=== PATIENT | male | born 1940 | race Caucasian/White ===

== ENCOUNTER 2022-12-02 13:52 | Inpatient (IN) | payer MEDICARE, OTHER, SELFPAY ==
[2022-12-02 13:53] VITALS: BP 117/59; PULSE 79; RESP 16; TEMP 36.2; O2SAT 98
--- NOTE | 2022-12-02 14:13 | EX.ED.DYSGE1 ---
HPI <FLAVIA Ingram - Last Filed: 12/02/22 18:57> History of Present Illness Chief Complaint: General Illness Narrative Narrative: 82-year-old male with PMH of DM2 presents with decline since recent bladder surgery. On 11/17 he had transurethral resection for bladder cancer with Dr. Hankins at [facility]. He states since then he is just generally declined, has lost 20 pounds and has no appetite with some nausea but no vomiting. Over the last 3 days he is having urinary incontinence and diarrhea with bright red blood. He is feels some irritation from hemorrhoids. He had stopped aspirin before the surgery and did not restart it. He is not on blood thinners. His son visited today and thought he did not look well and brought him in for evaluation. Patient is scheduled to see Dr. Hankins in 3 days for follow-up. PFSH <FLAVIA Ingram - Last Filed: 12/02/22 18:57> [facility] Medical History (Updated 12/02/22 @ 18:57 by FLAVIA Ingram) Bladder cancer DM II (diabetes mellitus, type II), controlled Home Medications Lantus 12/30/14 [History Last Taken Unknown] ascorbic acid (vitamin C) 500 mg tablet (Vitamin C) 500 mg PO DAILY@0800 12/30/14 [History Last Taken Unknown] aspirin 81 mg chewable tablet 81 mg PO DAILY@0800 12/30/14 [History Last Taken Unknown] atorvastatin 10 mg tablet 10 mg PO QHS 12/30/14 [History Last Taken Unknown] coenzyme Q10 50 mg chewable tablet 100 mg PO DAILY 12/30/14 [History Last Taken Unknown] glimepiride 4 mg tablet 4 mg PO DAILY 12/30/14 [History Last Taken Unknown] metformin 500 mg tablet 500 mg PO DAILY 12/30/14 [History Last Taken Unknown] multivitamin with folic acid 400 mcg tablet (Thera) 1 tab PO DAILY 12/30/14 [History Last Taken Unknown] furosemide 20 mg tablet 20 mg PO DAILY 12/02/22 [History Last Taken Unknown] Allergy/AdvReac Type Severity Reaction Status Date / Time No Known Allergies Allergy Verified 12/02/22 13:55 Social History Smoking Status: Never smoker ROS <FLAVIA Ingram - Last Filed: 12/02/22 18:57> ROS ED ROS Narrative Constitutional: Positive for malaise. Negative for fever, chills. ENT: Negative for sore throat, rhinorrhea. CVS: Negative for chest pain, syncope. Respiratory: Negative for shortness of breath, cough. GI: Positive for nausea, diarrhea. Negative for abdominal pain, vomiting, melena, hematochezia. : Negative for dysuria, hematuria. Neuro: Negative for headache. EXAM <FLAVIA Ingram - Last Filed: 12/02/22 18:57> Physical Exam Narrative Exam Narrative: CONST: Patient sitting in no acute distress. EYES: Normal inspection. ENT: Normal inspection, dry mucous membranes. NECK: Normal inspection. RESP: No respiratory distress, CTAB. CVS: Regular rate and rhythm, no murmur, no gallop. ABD: Soft and nontender, no guarding or rebound, nondistended. SKIN: Color normal, no rash, warm, dry, intact. EXTREMITIES: Normal appearance, no pedal edema. NEURO: Oriented x4. PSYCH: Normal affect. Const Vital Signs: 12/02/22 13:53 12/02/22 14:39 12/02/22 16:14 Temperature 97.1 F L Temperature Source Temporal Pulse Rate 79 63 Respiratory Rate 16 16 Respiratory Effort Normal Non-Labored Respiratory Pattern Normal Blood Pressure 117/59 L 133/63 H Blood Pressure Mean 78 86 Pulse Ox 98 97 Oxygen Delivery Method Room Air Room Air 12/02/22 18:13 Temperature Temperature Source Pulse Rate 73 Respiratory Rate 14 Respiratory Effort Respiratory Pattern Blood Pressure 163/82 H Blood Pressure Mean 109 Pulse Ox 99 Oxygen Delivery Method Room Air <Dr. Jamal Casillas MD - Last Filed: 12/02/22 19:10> Physical Exam Const Vital Signs: 12/02/22 13:53 12/02/22 14:39 12/02/22 16:14 Temperature 97.1 F L Temperature Source Temporal Pulse Rate 79 63 Respiratory Rate 16 16 Respiratory Effort Normal Non-Labored Respiratory Pattern Normal Blood Pressure 117/59 L 133/63 H Blood Pressure Mean 78 86 Pulse Ox 98 97 Oxygen Delivery Method Room Air Room Air 12/02/22 18:13 Temperature Temperature Source Pulse Rate 73 Respiratory Rate 14 Respiratory Effort Respiratory Pattern Blood Pressure 163/82 H Blood Pressure Mean 109 Pulse Ox 99 Oxygen Delivery Method Room Air MDM <FLAVIA Ingram - Last Filed: 12/02/22 18:57> MDM MDM Narrative Medical decision making narrative: History gathered from: Patient, spouse, son Patient having general decline, lack of appetite and weight loss since surgery for bladder cancer resection about 2 weeks ago. He appears well and nontoxic. Afebrile with normal vital signs. He has dry mucous membranes with an otherwise benign exam. CBC is unremarkable. BMP shows normal electrolytes with BUN of 86, creatinine 2.68. Outside records from 10/11/2022 had BUN of 26, creatinine 1.58 so he does have AKBAR secondary to poor p.o. intake and dehydration. Patient was given IV fluids. UA has > 100 wbcs but no bacteria or nitrites. Urine was cultured and he was given Rocephin. Case was discussed with the hospitalist who ordered a CT to rule out an obstructive cause of his acute kidney injury. CT showed fluid collection in between the rectum and bladder possible abscess versus urinoma. Results were relayed to Dr. Hankins who recommended a Pyle catheter for decompression and will see him in the morning. Patient admitted to [facility] in stable condition Differential: Dehydration, electrolyte abnormality, AKBAR, UTI Lab Data Attestation: I reviewed the patient's lab results. Labs: Laboratory Results - last 24 hr 12/02/22 12/02/22 12/02/22 14:35 14:35 15:50 WBC 9.5 RBC 4.37 L Hgb 13.2 Hct 40.1 MCV 91.8 MCH 30.2 MCHC 32.9 RDW Std Deviation 47.8 H RDW Coeff of Danielle 14.0 Plt Count 339 MPV 9.4 Immature Gran % (Auto) 0.400 Neut % (Auto) 86.1 H Lymph % (Auto) 6.7 L [place] % (Auto) 6.0 Eos % (Auto) 0.5 Baso % (Auto) 0.3 Absolute Neuts (auto) 8.2 H Absolute Lymphs (auto) 0.63 L Nucleated RBC % 0 Sodium 136 Potassium 5.1 Chloride 106 Carbon Dioxide 20.0 L Anion Gap 10 BUN 86 H Creatinine 2.68 H Estim Creat Clear Calc 21.19 Est GFR (MDRD) Af Amer 29 L Est GFR (MDRD) Non-Af 24 L BUN/Creatinine Ratio 32.1 H Glucose 387 H Calcium 10.1 Urine Color Straw Urine Clarity Turbid Urine pH 6.0 Ur Specific [place] 1.015 Urine Protein 100 H Urine Glucose (UA) 1000 H Urine Ketones Negative Urine Occult Blood 250 H Urine Nitrite Negative Urine Bilirubin Negative Urine Urobilinogen Normal Ur Leukocyte Esterase 500 H Urine RBC 0 SEEN Urine WBC >100 SEEN Ur Squamous Epith Cells 0 SEEN Urine Bacteria 0 SEEN Urine Mucus 0 SEEN Radiography Diagnostic Testing: Clinical Impression(s) from Imaging Studies Abdomen/Pelvis CT 12/02/22 17:25 IMPRESSION: 1. Complex fluid collection between the rectum and urinary bladder measures 4.1 x 6.7 x 6.2 cm, possible abscess versus urinoma (given history). 2. Right ureter stent with right hydronephrosis including air-fluid levels, possible pyonephrosis versus air related to recent intervention. Electronically Signed: Dany PilarJuniorAstrid Anne, at 18:33 EDT Reading Location ID and State: [facility] / [place] , Service support , <Dr. Jamal Casillas MD - Last Filed: 12/02/22 19:10> [facility] MDM Narrative Medical decision making narrative: History gathered from: Patient, spouse, son Patient having general decline, lack of appetite and weight loss since surgery for bladder cancer resection about 2 weeks ago. He appears well and nontoxic. Afebrile with normal vital signs. He has dry mucous membranes with an otherwise benign exam. CBC is unremarkable. BMP shows normal electrolytes with BUN of 86, creatinine 2.68. Outside records from 10/11/2022 had BUN of 26, creatinine 1.58 so he does have AKBAR secondary to poor p.o. intake and dehydration. Patient was given IV fluids. UA has > 100 wbcs but no bacteria or nitrites. Urine was cultured and he was given Rocephin. Case was discussed with the hospitalist who ordered a CT to rule out an obstructive cause of his acute kidney injury. CT showed fluid collection in between the rectum and bladder possible abscess versus urinoma. Results were relayed to Dr. Hankins who recommended a Pyle catheter for decompression and will see him in the morning. Patient admitted to [facility] in stable condition Differential: Dehydration, electrolyte abnormality, AKBAR, UTI Sonja: Patient was seen by me. I agree with the above extenders note, note was done by both me and the PA as I may have edited some of the above. Lab Data Labs: Laboratory Results - last 24 hr 12/02/22 12/02/22 12/02/22 14:35 14:35 15:50 WBC 9.5 RBC 4.37 L Hgb 13.2 Hct 40.1 MCV 91.8 MCH 30.2 MCHC 32.9 RDW Std Deviation 47.8 H RDW Coeff of Danielle 14.0 Plt Count 339 MPV 9.4 Immature Gran % (Auto) 0.400 Neut % (Auto) 86.1 H Lymph % (Auto) 6.7 L [place] % (Auto) 6.0 Eos % (Auto) 0.5 Baso % (Auto) 0.3 Absolute Neuts (auto) 8.2 H Absolute Lymphs (auto) 0.63 L Nucleated RBC % 0 Sodium 136 Potassium 5.1 Chloride 106 Carbon Dioxide 20.0 L Anion Gap 10 BUN 86 H Creatinine 2.68 H Estim Creat Clear Calc 21.19 Est GFR (MDRD) Af Amer 29 L Est GFR (MDRD) Non-Af 24 L BUN/Creatinine Ratio 32.1 H Glucose 387 H Calcium 10.1 Urine Color Straw Urine Clarity Turbid Urine pH 6.0 Ur Specific [place] 1.015 Urine Protein 100 H Urine Glucose (UA) 1000 H Urine Ketones Negative Urine Occult Blood 250 H Urine Nitrite Negative Urine Bilirubin Negative Urine Urobilinogen Normal Ur Leukocyte Esterase 500 H Urine RBC 0 SEEN Urine WBC >100 SEEN Ur Squamous Epith Cells 0 SEEN Urine Bacteria 0 SEEN Urine Mucus 0 SEEN Radiography Diagnostic Testing: Clinical Impression(s) from Imaging Studies Abdomen/Pelvis CT 12/02/22 17:25 IMPRESSION: 1. Complex fluid collection between the rectum and urinary bladder measures 4.1 x 6.7 x 6.2 cm, possible abscess versus urinoma (given history). 2. Right ureter stent with right hydronephrosis including air-fluid levels, possible pyonephrosis versus air related to recent intervention. Electronically Signed: Dany Anne (Brooks), at 18:33 EDT Reading Location ID and State: [facility] / [place] , Service support , Discharge Plan Triage Chief Complaint: General Illness ED Midlevel Provider: Lilian Nair ED Provider: Jamal Casillas Dx/Rx/DC Orders Clinical Impression: Acute dehydration, Acute kidney injury, Acute UTI, Abscess, intra-abdominal, postoperative Prescriptions: No Action metformin 500 MG tablet 500 mg PO DAILY atorvastatin 10 MG tablet 10 mg PO QHS ascorbic acid (vitamin C) [Vitamin C] 500 MG tablet 500 mg PO DAILY@0800 glimepiride 4 MG tablet 4 mg PO DAILY aspirin 81 MG tablet,chewable 81 mg PO DAILY@0800 multivitamin with folic acid [Thera] 1 TABLET tablet 1 tab PO DAILY coenzyme Q10 50 MG tablet,chewable 100 mg PO DAILY Lantus furosemide 20 mg tablet 20 mg PO DAILY Label Comments: TAKE 1 TABLET BY MOUTH EVERY DAY Primary Care Provider: Del Fox Referrals: Jared Hankins MD [Med Staff - Active Staff] -
[2022-12-02] MEDS: 0.9% Normal Saline 1,000 ML 999 ML IV ×2 (14:31→16:10)
[2022-12-02] MEDS: Ondansetron 4 MG/2 ML Vial IV (14:32)
[2022-12-02 14:34] VITALS: BMI 28.6
[2022-12-02 14:39] LABS: Absolute Lymphocyte Count 0.63 X10^3/uL (0.83-4.51); Absolute Neutrophil Count 8.2 X10^3/uL (2.0-7.7); Basophil# 0.03 X10^3/uL; Basophil% 0.3 % (0-1); Eosinophil# 0.05 X10^3/uL; Eosinophils% 0.5 % (0-5); Hematocrit 40.1 % (40-54); Hemoglobin 13.2 g/dL (13.0-16.5); Lymphocyte # 0.63 X10^3/ul (0.83-4.51); Lymphocyte % 6.7 % (19-41); Mean Corp Hgb Conc 32.9 g/dL (32-36); Mean Corpuscular Hgb 30.2 pg (27.0-32.0); Mean Corpuscular Volume 91.8 fL (80-94); Mean Platelet Vol. 9.4 fl (6.2-12.0); Monocyte# 0.57 X10^3/uL; NRBC Flagged by Analyzer 0 % (0-5); Neutrophil # 8.15 X10^3/uL (2.7-7.7); Neutrophil % 86.1 % (47-70); Platelet Count 339 K/mm3 (150-450); RBC Distribution Width SD 47.8 fl (35.1-43.9); Red Blood Count 4.37 M/mm3 (4.6-6.2); White Blood Count 9.5 K/mm3 (4.4-11.0)
[2022-12-02 14:52] LABS: Anion Gap 10 (5-15); BUN 86 mg/dL (7-18); BUN/Creat Ratio 32.1 RATIO (10-20); Calcium,Total 10.1 mg/dL (8.5-10.1); Chloride 106 mmol/L (98-107); Creatinine, Serum 2.68 mg/dL (0.70-1.30); EST Glomerular Filtration Rate 24 mL/min (>60); Est Glom Filt Rate - Afr Amer 29 mL/min (>60); Estimated Creatinine Clearance 21.19 ml/min; Glucose 387 mg/dL (74-106); Potassium 5.1 mmol/L (3.5-5.1); Sodium Level 136 mmol/L (136-145)
[2022-12-02 15:55] LABS: Bacteria 0 SEEN /hpf (None Seen); Mucous, Urine 0 SEEN /hpf (<or=2+); Red Blood Cells-Urine 0 SEEN /hpf (0-5); Squamous Epithelial Cells - UA 0 SEEN /hpf (0-5)
[2022-12-02 15:59] LABS: Color, Urine Straw (Yellow); Glucose, Dipstick 1000 mg/dl (Normal); Ketone-Dipstick Negative (Negative); Leukocyte Esterase-Dipstick 500 /ul (Negative); Nitrite-Dipstick Negative (Negative); Occult Blood-Urine 250 /ul (Negative); Protein-Dipstick 100 mg/dl (Negative); Specific Gravity, Urine 1.015 (1.002-1.030); Urine Bilirubin Dipstick Negative (Negative); Urine Clarity Turbid (Clear); Urine Urobilinogen Normal (Normal)
[2022-12-02] MEDS: Ceftriaxone 1 GM/50 ML BAG IV (16:10)
[2022-12-02 16:14] VITALS: BP 133/63; PULSE 63; RESP 16; O2SAT 97
[2022-12-02 17:17] LABS: White Blood Cells >100 SEEN /hpf (0-5)
--- NOTE | 2022-12-02 17:25 | CT_ITS ---
EXAM: CT ABDOMEN AND PELVIS WITHOUT INTRAVENOUS CONTRAST CLINICAL INDICATION: Recent surgery with Dr. Hankins to remove a couple of bladder cancer tumors. They placed a stent then also. Hasn''t been able to eat or control bowel and bladder. nausea. diarrhea with bright red blood. TECHNIQUE: Helically acquired images were obtained of the abdomen and pelvis without intravenous contrast. This CT exam was performed using one or more of the following dose reduction techniques: automated exposure control, adjustment of the mA and/or kV according to patient size, and/or use of iterative reconstruction technique. RADIATION DOSE: CTDIvol = 13.66 mGy, DLP = 757.69 mGy-cm COMPARISON: No relevant prior studies available. FINDINGS: LOWER THORAX: Sternal wires and mediastinal surgical clips compatible with prior CABG. Lung bases are clear. No cardiomegaly. No significant pericardial effusion. ABDOMEN: LIVER: Unremarkable. Homogeneous. GALLBLADDER AND BILE DUCTS: Gallstone. No gallbladder wall thickening. No intra- or extrahepatic biliary ductal dilation. PANCREAS: Unremarkable. No focal cystic mass. SPLEEN: Unremarkable. Normal size without focal cystic or solid mass. ADRENALS: Unremarkable. No nodules. KIDNEYS AND URETERS: See below. STOMACH AND BOWEL: Complex fluid collection between the rectum and urinary bladder measures 4.1 x 6.7 x 6.2 cm. Duodenal diverticula. Diverticulosis. No stomach or bowel distention. No focal inflammatory change. PELVIS: APPENDIX: Not seen but no evidence of acute appendicitis. BLADDER: Right ureter stent extends from the right renal pelvis to the urinary bladder. Moderate hydronephrosis of the right kidney with air-fluid levels in dilated calyces. There is also air in the nondependent portion of the urinary bladder. REPRODUCTIVE: Unremarkable as visualized. No mass. ABDOMEN and PELVIS: INTRAPERITONEAL SPACE: Unremarkable. No ascites or other fluid collection. No free air. BONES/JOINTS: Degenerative changes of lumbar spine. No suspicious lytic or blastic abnormality. SOFT TISSUES: Unremarkable. No discrete abdominal or pelvic wall hernia. VASCULATURE: Atherosclerosis of the abdominal aorta and iliac arteries. Abdominal aorta is non-dilated. LYMPH NODES: Unremarkable. No enlarged lymph nodes. CT/Abdomen/Pelvis without Cont IMPRESSION: 1. Complex fluid collection between the rectum and urinary bladder measures 4.1 x 6.7 x 6.2 cm, possible abscess versus urinoma (given history). 2. Right ureter stent with right hydronephrosis including air-fluid levels, possible pyonephrosis versus air related to recent intervention. Electronically Signed: Dany Anne (Brooks), at 18:33 EDT ,
--- NOTE | 2022-12-02 18:08 | PCM.HP.STD ---
HPI - General General Date of Admission: 12/02/22 Date of Service: 12/02/22 Chief Complaint: Weight loss/difficulty urinating/dysuria HPI Narrative MIREYA LIM, is a 82 M who presented to the emergency department at 12/02/2022 due to not feeling well overall. The patient reports he has had a decline in his health since recent bladder surgery. On 11/17/2022 a transurethral resection and a right stent placement were performed at [facility] by Dr. Hankins. He states since that point time he has been feeling very poorly. He lost 20 pound and has no appetite. Denies nausea or vomiting but does report significant diarrhea that has been quite voluminous and frequent. Was on Cipro perioperatively. He states he has been having dysuria, frequent urination of low volumes and decreased urine output. He denies any gross hematuria. He was to follow-up with Dr. Hankins in 3 days but was feeling so poorly his son brought him to the emergency department. Vitals on presentation demonstrated temperature of 97.1, heart rate 79, blood pressure 117/59, pulse ox was 98% on room air. His CBC was unremarkable however he did have a left shift with an 86.1% neutrophilia. His chemistry panel was notable for a markedly elevated BUN and creatinine at 86 and 2.68 respectively (baseline serum creatinine on previous lab done at [facility] is between 1.45 and 1.6. His serum glucose was 387. His urine was turbid and had occult blood and leuk esterase with loaded white blood cells but no bacteria. I asked the emergency department to obtain a CT without contrast and this showed a complex fluid collection between the rectum and urinary bladder that measured 4.1 x 6.7 x 6.2 cm suggestive of abscess versus urinoma as well as a right ureteral stent with right hydronephrosis including air-fluid levels. A Pyle was placed and the case was discussed with Dr. Hankins who agreed with Pyle placement and ongoing antibiotics. He will be admitted to the medical floor and urology will evaluate the patient tomorrow morning [facility] Medical History Bladder cancer DM II (diabetes mellitus, type II), controlled Home Medications Lantus 12/30/14 [History Last Taken Unknown] ascorbic acid (vitamin C) 500 mg tablet (Vitamin C) 500 mg PO DAILY@0800 12/30/14 [History Last Taken Unknown] aspirin 81 mg chewable tablet 81 mg PO DAILY@0800 12/30/14 [History Last Taken Unknown] atorvastatin 10 mg tablet 10 mg PO QHS 12/30/14 [History Last Taken Unknown] coenzyme Q10 50 mg chewable tablet 100 mg PO DAILY 12/30/14 [History Last Taken Unknown] glimepiride 4 mg tablet 4 mg PO DAILY 12/30/14 [History Last Taken Unknown] metformin 500 mg tablet 500 mg PO DAILY 12/30/14 [History Last Taken Unknown] multivitamin with folic acid 400 mcg tablet (Thera) 1 tab PO DAILY 12/30/14 [History Last Taken Unknown] furosemide 20 mg tablet 20 mg PO DAILY 12/02/22 [History Last Taken Unknown] Allergy/AdvReac Type Severity Reaction Status Date / Time No Known Allergies Allergy Verified 12/02/22 13:55 no significant family history Surgical History H/O transurethral resection of bladder tumor (TURBT) S/P ureteral stent placement Social History (Updated 12/02/22 @ 19:[address] Ashley Flower DO) household members: spouse housing: house Smoking Status: Never smoker alcohol intake: never substance use type: does not use ROS Constitutional Constitutional: Reports anorexia, change in weight, fatigue, malaise and weakness; Denies chills, fever(s), night sweats or other Eyes Eyes: Denies blurry vision, change in eye color, change in vision, discharge from eye(s), double vision, erythema, eye pain, loss of vision or other ENT HEENT: Denies abnormal hearing, dysphagia, ear pain, epistaxis, headache(s), hearing loss, nasal congestion, nasal discharge, post nasal drip, sinus pressure, sore throat or other Cardiovascular Cardiovascular: Denies chest pain, claudication, dyspnea on exertion, edema, lightheadedness, orthopnea, palpitations, paroxysmal nocturnal dyspnea, rapid heart rate, syncope or other Respiratory/Chest Respiratory/Chest: Denies cough, dyspnea, excessive phlegm production, hemoptysis, productive cough, shortness of breath at rest, shortness of breath with exertion, wheezing or other Gastrointestinal Gastrointestinal: Reports diarrhea Genitourinary Genitourinary: Reports burning urination, difficulty urinating, dysuria, nocturia, urinary frequency and urinary hesitancy; Denies hematuria, urinary incontinence, urinary urgency or other Musculoskeletal Musculoskeletal: Denies arthralgias, back pain, joint pain, joint stiffness, joint swelling, myalgias, neck pain or other Neurologic Neurologic: Denies abnormal gait, abnormal speech, confusion, disequilibrium, dizziness, focal weakness, headache(s), numbness, paresthesias, seizure-like activity, seizures, syncope, tingling, tremor(s) or other Psychiatric Psychiatric: Denies anxiety, depression, homicidal ideation, suicidal ideation or other Endocrine Endocrinology: Denies change in body appearance, cold intolerance, excessive sweating, heat intolerance, polydipsia, polyuria or other Hematologic/Lymphatic Hematologic/Lymphatic: Denies anemia, easy bleeding, easy bruising, lymphadenopathy or other Allergic/Immunologic Allergic/Immunologic: Denies rhinitis, hives, eczemia, asthma or other Vital Signs Vital Signs Vital Signs: 12/02/22 13:53 12/02/22 14:39 12/02/22 16:14 Temperature 97.1 F L Temperature Source Temporal Pulse Rate 79 63 Respiratory Rate 16 16 Respiratory Effort Normal Non-Labored Respiratory Pattern Normal Blood Pressure 117/59 L 133/63 H Blood Pressure Mean 78 86 Pulse Ox 98 97 Oxygen Delivery Method Room Air Room Air Weight Weight: 90.5 kg Body Mass Index (BMI) 28.6 Physical Exam Const alert, oriented x3 and no apparent distress; Negative for well nourished Constitutional Narrative: Elderly white male lying in bed, appears ill but not toxic, pleasant, family at bedside HEENT normocephalic, head/scalp atraumatic, hearing grossly normal bilaterally and moist oral mucous membranes HEENT Narrative: Mucous membranes are dry, dentition is fair for age, Mallampati is 2, no thrush Eyes PERRL, EOMs intact bilaterally and conjunctivae normal Eyes Narrative: No scleral icterus Neck no lymphadenopathy, supple, no JVD and no carotid bruits Neck Narrative: Trachea midline, no thyroid enlargement Resp normal respiratory effort, no retractions, no use of accessory muscles and clear to auscultation bilaterally Auscultation: Negative for rales, rhonchi or wheezes Cardio regular rate, regular rhythm, S1 normal heart sound, S2 normal heart sound, no murmurs, no rub, no gallops and no clicks GI normal to inspection, nondistended, normoactive bowel sounds and soft to palpation GI Narrative: Mild tenderness in the suprapubic area Extremity Extremity Narrative: Trace bilateral lower extremity edema, no cyanosis or clubbing Skin no rashes or lesions noted, no wounds, skin turgor normal, no jaundice, no petechiae and no mottling Neuro oriented x3, CN's II-XII intact bilaterally, moves all extremities and no focal motor deficits Neuro Narrative: Generalized weakness on exam-proximal greater than distal Speech: speech normal Motor Exam: Negative for strength 5/5 throughout Psych affect normal Psych Narrative: Pleasant, appropriate Results Lab / Micro Data Attestation: I reviewed the patient's lab results. Result Diagrams: 12/02/22 14:35 12/02/22 14:35 Labs: Laboratory Results - last 24 hr 12/02/22 14:35: WBC 9.5, RBC 4.37 L, Hgb 13.2, Hct 40.1, MCV 91.8, MCH 30.2, MCHC 32.9, RDW Std Deviation 47.8 H, RDW Coeff of Danielle 14.0, Plt Count 339, MPV 9.4, Immature Gran % (Auto) 0.400, Neut % (Auto) 86.1 H, Lymph % (Auto) 6.7 L, [place] % (Auto) 6.0, Eos % (Auto) 0.5, Baso % (Auto) 0.3, Absolute Neuts (auto) 8.2 H, Absolute Lymphs (auto) 0.63 L, Nucleated RBC % 0 12/02/22 14:35: Sodium 136, Potassium 5.1, Chloride 106, Carbon Dioxide 20.0 L, Anion Gap 10, BUN 86 H, Creatinine 2.68 H, Estim Creat Clear Calc 21.19, Est GFR (MDRD) Af Amer 29 L, Est GFR (MDRD) Non-Af 24 L, BUN/Creatinine Ratio 32.1 H, Glucose 387 H, Calcium 10.1 12/02/22 15:50: Urine Color Straw, Urine Clarity Turbid, Urine pH 6.0, Ur Specific [place] 1.015, Urine Protein 100 H, Urine Glucose (UA) 1000 H, Urine Ketones Negative, Urine Occult Blood 250 H, Urine Nitrite Negative, Urine Bilirubin Negative, Urine Urobilinogen Normal, Ur Leukocyte Esterase 500 H, Urine RBC 0 SEEN, Urine WBC >100 SEEN, Ur Squamous Epith Cells 0 SEEN, Urine Bacteria 0 SEEN, Urine Mucus 0 SEEN Assessment & Plan Assessment/Plan (1) Acute kidney injury: (2) Acute UTI: (3) Urinary retention: (4) Hyperglycemia: (5) Severe malnutrition: (6) Diarrhea: (7) Generalized weakness: (8) Weight loss: (9) Edema: PLAN: Plan AKBAR -Suspect related to urinary retention -Place Pyle -IV fluids at 100 cc an hour as p.o. intake has been poor -Avoid nephrotoxins next-hold home glimepiride and metformin -Repeat BMP in a.m. and if no improvement with Pyle may need further work-up Complicated UTI with possible abscess -Recent instrumentation and so will be aggressive with antibiotics using vancomycin and Zosyn -Check MRSA PCR -Check blood cultures -Urine culture pending Urinary retention with recent transurethral resection and right ureteral stent -Pyle to be placed -Consult urology -Start Flomax Diarrhea -Check enteric panel -Check C. difficile with recent antibiotic use -Reported he was on Cipro prior to surgery and perioperatively -Bedside commode Severe malnutrition -Patient with significant weight loss in the last 12 days -Add supplements -Dietitian consult Lower extremity edema -Check Dopplers to rule out DVT with history of cancer and swelling DM-2 with hyperglycemia -Lantus 15 units at at bedtime -Sliding scale -Hold metformin Elevated blood pressure -Patient is not on antihypertensives at baseline -As needed hydralazine for systolic greater than 160 and reevaluate with more data points Bladder cancer -Recent transurethral resection and right ureteral stent placement -Dr. Manning following -Consult urology DVT prophylaxis -Lovenox subcu daily CODE STATUS Full code Charges/Coding Visit Charges Inpatient E&M: 92127 Init Hosp L3
[2022-12-02 18:13] VITALS: BP 163/82; PULSE 73; RESP 14; O2SAT 99
--- NOTE | 2022-12-02 19:07 | VDLE_ITS ---
Reason For Study: BLE SWELLING RIGHT LEFT GSV is normal. GSV is normal. CFV is compressible, spontaneous, phasic, CFV is compressible, spontaneous, phasic, competent and demonstrates normal competent, and demonstrates normal augmentation. augmentation. FV is compressible, spontaneous, phasic, FV is compressible, spontaneous, phasic, competent and demonstrates normal competent and demonstrates normal augmentation. augmentation. POP V is compressible, spontaneous, phasic, POP V is compressible, spontaneous, phasic, competent and demonstrates normal competent and demonstrates normal augmentation. augmentation. T/P Trunk is compressible. T/P Trunk is compressible. PTV is compressible. PTV is compressible. RT PerV is compressible. LT PerV is compressible. Procedure This is a venous duplex using B-mode, color flow and spectral Doppler. Exam performed portable in patient room. The exam was diagnostic. A preliminary report was called and/or faxed to [facility] & PT's RN. VL/Venous Duplex US - Trent Extrem Interpretation Summary Deep veins of the bilateral lower extremities are patent and compressible segme ntally. There is no evidence of bilateral lower extremity deep vein thrombosis. The bilateral great saphenous veins appear patent and compressible segmentally. Ordering Physician: Ashley Flower Referring Physician: Del Fox Performed By: Daniela Chi, LIYA, RVT
[2022-12-02 19:16] VITALS: BP 153/68; PULSE 81; RESP 16; TEMP 36.8; O2SAT 97
[2022-12-02 19:37] VITALS: BMI 29.0
[2022-12-02 20:04] VITALS: BP 157/67; PULSE 74; RESP 16; TEMP 36.6; O2SAT 100
[2022-12-02] MEDS: Lactated Ringers 1,000 ML 100 ML IV (20:49)
[2022-12-02] MEDS: Atorvastatin Calcium 10 MG Tablet PO (21:00)
--- NOTE | 2022-12-02 21:04 | PCM.RX.CS ---
Consult Pharmacy has been consulted to manage selected antiobiotic: Vancomycin Type of Consult: New start Suspected Infection: Other Prior Doses of Antibiotics Received/Current Regimen: Medications Vancomycin HCl 750 mg/ Sodium (Chloride) 265 mls @ 250 mls/hr IV Q24H RISA Vancomycin HCl 1,250 mg/ (Sodium Chloride) 275 mls @ 167 mls/hr IV X1 ONE Stop: 12/02/22 22:08 Last Admin: 12/02/22 20:49 Dose: 167 mls/hr Labs: Sodium 136 mmol/L (136-145) 12/02/22 14:35 Potassium 5.1 mmol/L (3.5-5.1) 12/02/22 14:35 Chloride 106 mmol/L (98-107) 12/02/22 14:35 Carbon Dioxide 20.0 mmol/L (21.0-32.0) L 12/02/22 14:35 Anion Gap 10 (5-15) 12/02/22 14:35 BUN 86 mg/dL (7-18) H 12/02/22 14:35 Creatinine 2.68 mg/dL (0.70-1.30) H 12/02/22 14:35 Est GFR (MDRD) Af Amer 29 mL/min (>60) L 12/02/22 14:35 Est GFR (MDRD) Non-Af 24 mL/min (>60) L 12/02/22 14:35 BUN/Creatinine Ratio 32.1 RATIO (10-20) H 12/02/22 14:35 Glucose 387 mg/dL (74-106) H 12/02/22 14:35 Weight used for dosin.2 kg Estimated Creatinine Clearance: 22.7 Goal Trough: 15-20 mcg/mL Pharmacy Plan for Drug Dosing: Initial vancomycin dose of 1250mg was given 12/02/22. Per current renal status, a continuing dose of 750mg q24h will be given, and a trough level drawn prior to 3rd total dose. Pharmacy Service will continue to monitor and adjust dosing as required. Follow-Up Labs: Trough Vancomycin Labs to be done on [date and time ordered]: 12/04/22 @1999
[2022-12-02] MEDS: Insulin Glargine-YFGN 100 UNIT/ML Pen 15 UNIT SC (21:05)
[2022-12-02 21:28] LABS: Bedside Glucose 296 mg/dL (74-106)
[2022-12-02 23:25] VITALS: O2SAT 98
[2022-12-03] VITALS (7 sets, daily range): BP systolic 129–152; BP diastolic 61–72; PULSE 68–80; RESP 16; TEMP 36.6–37; O2SAT 95–100
[2022-12-03] MEDS: Lactated Ringers 1,000 ML 100 ML IV (05:59)
[2022-12-03] MEDS: Insulin Lispro 100 UNIT/ML INSULN.PEN SC ×3 (06:07→16:03)
[2022-12-03 06:30] LABS: Absolute Lymphocyte Count 0.82 X10^3/uL (0.83-4.51); Absolute Neutrophil Count 6.4 X10^3/uL (2.0-7.7); Basophil# 0.03 X10^3/uL; Basophil% 0.4 % (0-1); Eosinophil# 0.16 X10^3/uL; Hematocrit 35.1 % (40-54); Hemoglobin 11.5 g/dL (13.0-16.5); Lymphocyte # 0.82 X10^3/ul (0.83-4.51); Lymphocyte % 10.4 % (19-41); Mean Corp Hgb Conc 32.8 g/dL (32-36); Mean Corpuscular Hgb 29.9 pg (27.0-32.0); Mean Corpuscular Volume 91.4 fL (80-94); Mean Platelet Vol. 9.4 fl (6.2-12.0); Monocyte# 0.44 X10^3/uL; Monocyte% 5.6 % (0-10); NRBC Flagged by Analyzer 0 % (0-5); Neutrophil # 6.41 X10^3/uL (2.7-7.7); Neutrophil % 81.1 % (47-70); Platelet Count 303 K/mm3 (150-450); RBC Distribution Width CV 14.3 % (11.6-14.6); RBC Distribution Width SD 48.1 fl (35.1-43.9); Red Blood Count 3.84 M/mm3 (4.6-6.2); White Blood Count 7.9 K/mm3 (4.4-11.0)
[2022-12-03 06:42] LABS: Bedside Glucose 151 mg/dL (74-106)
[2022-12-03 06:58] LABS: BUN 60 mg/dL (7-18); Glucose 168 mg/dL (74-106)
[2022-12-03 06:59] LABS: ALB/GLOB Ratio 0.5 RATIO (0.9-2.4); AST(SGOT) 41 U/L (15-37); Alanine Aminotransfer ALT/SGPT 60 U/L (16-61); Alkaline Phosphatase 136 U/L (45-117); Anion Gap 6 (5-15); Calcium,Total 8.7 mg/dL (8.5-10.1); Chloride 114 mmol/L (98-107); EST Glomerular Filtration Rate 34 mL/min (>60); Est Glom Filt Rate - Afr Amer 41 mL/min (>60); Estimated Creatinine Clearance 27.49 ml/min; Globulin 4.1 g/dL (2.2-4.2); Magnesium 2.3 mg/dL (1.6-2.6); Protein, Total 6.1 g/dL (6.4-8.2); Sodium Level 141 mmol/L (136-145)
[2022-12-03 07:03] LABS: Phosphorus 2.9 mg/dL (2.5-4.9)
[2022-12-03 07:53] LABS: Thyroid Stim Hormone (TSH) 0.18 uIU/mL (0.358-3.74)
--- NOTE | 2022-12-03 08:10 | PCM.RX.CS ---
Consult Pharmacy has been consulted to manage selected antiobiotic: Vancomycin Suspected Infection: Other Labs: Sodium 141 mmol/L (136-145) 12/03/22 06:10 Potassium 5.0 mmol/L (3.5-5.1) 12/03/22 06:10 Chloride 114 mmol/L (98-107) H 12/03/22 06:10 Carbon Dioxide 21.0 mmol/L (21.0-32.0) 12/03/22 06:10 Anion Gap 6 (5-15) 12/03/22 06:10 BUN 60 mg/dL (7-18) H 12/03/22 06:10 Creatinine 2.00 mg/dL (0.70-1.30) H 12/03/22 06:10 Est GFR (MDRD) Af Amer 41 mL/min (>60) L 12/03/22 06:10 Est GFR (MDRD) Non-Af 34 mL/min (>60) L 12/03/22 06:10 BUN/Creatinine Ratio 30.0 RATIO (10-20) H 12/03/22 06:10 Glucose 168 mg/dL (74-106) H 12/03/22 06:10 Pharmacy Plan for Drug Dosing: DAILY ASSESSMENT Current Vancomycin Dose: 750MG Q24 Number of Doses Received: 1250MG X1 Current Renal Function: SCR 2.0 MG/DL, CRCL 27.5 ML/MIN Renal Function Trend: IMPROVED, SCR 2.68 12/02 Lab/Micro: BLOOD AND URINE CX PENDING Any Change in Vanc Plan: YES, CRCL IMPROVED TO 27.5 ML/MIN, DOSE CHANGED TO 1GM Q24. TROUGH STILL SCHEDULED PRIOR TO 3RD TOTAL DOSE. Pending Level: 12/04/22 @ 1999 Pharmacy Service will continue to monitor and adjust dosing as required.
[2022-12-03] MEDS: Aspirin 81 MG TAB.CHEW PO (09:04)
[2022-12-03] MEDS: Pantoprazole Sodium 40 MG Tablet PO (09:04)
[2022-12-03] MEDS: Cholecalciferol (Vit D3) 125 MCG CAPSULE (5,000 UNITS) PO (09:04)
[2022-12-03] MEDS: Ascorbic Acid 500 MG Tablet PO (09:04)
[2022-12-03] MEDS: Metoprolol(XL)Succ 100 MG Tablet PO (09:04)
[2022-12-03] MEDS: Multivitamins,Therapeutic Tablet 1 TABLET PO (09:04)
[2022-12-03] MEDS: Enoxaparin 30 MG/0.3 ML Syringe SC (09:05)
[2022-12-03] MEDS: Ensure Plus High Protein 120 ML LIQUID PO ×4 (11:15→19:50)
[2022-12-03 11:20] LABS: Bedside Glucose 179 mg/dL (74-106)
--- NOTE | 2022-12-03 12:19 | PCM.CONS.U ---
HPI Consult Data Date of Consult: 12/03/22 HPI Narrative Reason for Consultation: Pyuria infection after resection of bladder tumor HPI Narrative: MIREYA LIM, is a 82 M who presents to the hospital he had a transurethral resection of a very large tumor quite deep into the bladder involving the right side of the bladder involved the ureteral orifice I had to put a stent in which quite difficult. At that point we recommended go home with a catheter but the patient had wanted to try to go home without a catheter. Then yesterday called me and the son let me know that he had not been doing well the patient had been losing weight has been having lots of difficulty with urination and his urine has been looking very foul-smelling so they brought him to the emergency room he was admitted he is on antibiotics now at the emergency room place a catheter CAT scan was done I reviewed the CAT scan he does have a small urinoma below the bladder probably a small leak nothing surgical. Should heal with catheter decompression and is a little bit of air in there and some air IN the collecting system I think this is from the infection so what to decompress everything with a catheter he has a stent in place its in good position continue with hydration continue with antibiotics we will culture the urine await results of the culture and then tailor antibiotics appropriately. This morning he looks much better he is tolerating by the regular breakfast his creatinine is down to 2.0. I would anticipate in a few days should be able to go home but he will need to go home with a catheter and follow-up in the office in a few weeks to have the catheter removed and stent removed prior repeat imaging as an outpatient to make sure the urinoma has resolved. I do not anticipate any surgical intervention will be necessary to cure this urinoma. I spoke his son around this morning regarding the situation. [facility] Medical History Bladder cancer DM II (diabetes mellitus, type II), controlled Home Medications atorvastatin 10 mg tablet 40 mg PO QHS Check with primary doctor 12/30/14 [History Last Taken 12/01/22] glimepiride 4 mg tablet 4 mg PO DAILY Check with primary doctor 12/30/14 [History Last Taken 12/02/22] cholecalciferol (vitamin D3) 125 mcg (5,000 unit) capsule 125 mcg PO DAILY Check with primary doctor 12/02/22 [History Last Taken 12/02/22] empagliflozin 25 mg tablet (Jardiance) 25 mg PO DAILY Check with primary doctor 12/02/22 [History Last Taken Unknown] lisinopril 5 mg tablet 5 mg PO DAILY Check with primary doctor 12/02/22 [History Last Taken 12/02/22] metformin 1,000 mg tablet 1,000 mg PO BID Check with primary doctor 12/02/22 [History Last Taken Unknown] metoprolol succinate 100 mg tablet,extended release 24 hr 100 mg PO DAILY Check with primary doctor 12/02/22 [History Last Taken 12/01/22] pantoprazole 40 mg tablet,delayed release 40 mg PO DAILY Check with primary doctor 12/02/22 [History Last Taken 12/02/22] tamsulosin 0.4 mg capsule 0.8 mg PO QHS Check with primary doctor 12/02/22 [History Last Taken 12/02/22] Allergy/AdvReac Type Severity Reaction Status Date / Time No Known Allergies Allergy Verified 12/02/22 13:55 Family History no significant family his Surgical History (Updated 12/02/22 @ 19:36 by Desirae Suarez) H/O transurethral resection of bladder tumor (TURBT) Hx of CABG S/P ureteral stent placement Social History (Updated 12/02/22 @ 19:[address] Ashley Flower DO) household members: spouse housing: house Smoking Status: Never smoker alcohol intake: never substance use type: does not use Lab / Micro Data Result Diagrams: 12/03/22 06:10 12/03/22 06:10 Labs: Laboratory Results - last 24 hr 12/02/22 14:35: WBC 9.5, RBC 4.37 L, Hgb 13.2, Hct 40.1, MCV 91.8, MCH 30.2, MCHC 32.9, RDW Std Deviation 47.8 H, RDW Coeff of Danielle 14.0, Plt Count 339, MPV 9.4, Immature Gran % (Auto) 0.400, Neut % (Auto) 86.1 H, Lymph % (Auto) 6.7 L, [place] % (Auto) 6.0, Eos % (Auto) 0.5, Baso % (Auto) 0.3, Absolute Neuts (auto) 8.2 H, Absolute Lymphs (auto) 0.63 L, Nucleated RBC % 0 12/02/22 14:35: Sodium 136, Potassium 5.1, Chloride 106, Carbon Dioxide 20.0 L, Anion Gap 10, BUN 86 H, Creatinine 2.68 H, Estim Creat Clear Calc 21.19, Est GFR (MDRD) Af Amer 29 L, Est GFR (MDRD) Non-Af 24 L, BUN/Creatinine Ratio 32.1 H, Glucose 387 H, Calcium 10.1 12/02/22 15:50: Urine Color Straw, Urine Clarity Turbid, Urine pH 6.0, Ur Specific [place] 1.015, Urine Protein 100 H, Urine Glucose (UA) 1000 H, Urine Ketones Negative, Urine Occult Blood 250 H, Urine Nitrite Negative, Urine Bilirubin Negative, Urine Urobilinogen Normal, Ur Leukocyte Esterase 500 H, Urine RBC 0 SEEN, Urine WBC >100 SEEN, Ur Squamous Epith Cells 0 SEEN, Urine Bacteria 0 SEEN, Urine Mucus 0 SEEN 12/02/22 21:03: POC Glucose 296 H 12/03/22 06:03: POC Glucose 151 H 12/03/22 06:10: WBC 7.9, RBC 3.84 L, Hgb 11.5 L, Hct 35.1 L, MCV 91.4, MCH 29.9, MCHC 32.8, RDW Std Deviation 48.1 H, RDW Coeff of Danielle 14.3, Plt Count 303, MPV 9.4, Immature Gran % (Auto) 0.500, Neut % (Auto) 81.1 H, Lymph % (Auto) 10.4 L, [place] % (Auto) 5.6, Eos % (Auto) 2.0, Baso % (Auto) 0.4, Absolute Neuts (auto) 6.4, Absolute Lymphs (auto) 0.82 L, Nucleated RBC % 0 12/03/22 06:10: Sodium 141, Potassium 5.0, Chloride 114 H, Carbon Dioxide 21.0, Anion Gap 6, BUN 60 H, Creatinine 2.00 H, Estim Creat Clear Calc 27.49, Est GFR (MDRD) Af Amer 41 L, Est GFR (MDRD) Non-Af 34 L, BUN/Creatinine Ratio 30.0 H, Glucose 168 H, Calcium 8.7, Magnesium 2.3, Total Bilirubin 0.40, AST 41 H, ALT 60, Alkaline Phosphatase 136 H, Total Protein 6.1 L, Albumin 2.0 L, Globulin 4.1, Albumin/Globulin Ratio 0.5 L 12/03/22 06:10: Phosphorus 2.9 12/03/22 06:10: TSH 0.18 L 12/03/22 10:57: POC Glucose 179 H Radiology Impression Abdomen/Pelvis CT 12/02/22 17:25 IMPRESSION: 1. Complex fluid collection between the rectum and urinary bladder measures 4.1 x 6.7 x 6.2 cm, possible abscess versus urinoma (given history). 2. Right ureter stent with right hydronephrosis including air-fluid levels, possible pyonephrosis versus air related to recent intervention. Electronically Signed: Dany Anne (Brooks), at 18:33 EDT Reading Location ID and State: [facility] / [place] , Service support ,
--- NOTE | 2022-12-03 12:32 | PN.HOSP_ITS ---
Reason for Visit Reason for Visit: Weight loss/difficulty urinating/dysuria Subjective Subjective Patient states he feels much better today. He is able to eat without any problem. His diarrhea has resolved. He states this is the best he has felt since he had surgery. Objective Data Objective Data Vital Signs: Vital Signs Temp Pulse Resp BP Pulse Ox O2 Del Method 98.2 F 74 16 152/72 H 95 Room Air 12/03/22 08:04 12/03/22 09:04 12/03/22 08:04 12/03/22 09:04 12/03/22 11:08 12/03/22 11:08 Oxygen Delivery Method Room Air Weight: 89.2 kg Body Mass Index (BMI) 29.0 Intake & Output: Intake and Output for Last 24 Hours 12/01/22 12/02/22 12/03/22 23:59 23:59 23:59 Intake Total 2325 / 2325 2356.67 / 2356.67 Output Total 2800 / 2800 Balance 2325 / 2325 -443.33 / -443.33 Lab / Micro Data Result Diagrams: 12/03/22 06:10 12/03/22 06:10 Labs: Laboratory Results - last 24 hr 12/02/22 14:35: WBC 9.5, RBC 4.37 L, Hgb 13.2, Hct 40.1, MCV 91.8, MCH 30.2, MCHC 32.9, RDW Std Deviation 47.8 H, RDW Coeff of Danielle 14.0, Plt Count 339, MPV 9.4, Immature Gran % (Auto) 0.400, Neut % (Auto) 86.1 H, Lymph % (Auto) 6.7 L, [place] % (Auto) 6.0, Eos % (Auto) 0.5, Baso % (Auto) 0.3, Absolute Neuts (auto) 8.2 H, Absolute Lymphs (auto) 0.63 L, Nucleated RBC % 0 12/02/22 14:35: Sodium 136, Potassium 5.1, Chloride 106, Carbon Dioxide 20.0 L, Anion Gap 10, BUN 86 H, Creatinine 2.68 H, Estim Creat Clear Calc 21.19, Est GFR (MDRD) Af Amer 29 L, Est GFR (MDRD) Non-Af 24 L, BUN/Creatinine Ratio 32.1 H, Glucose 387 H, Calcium 10.1 12/02/22 15:50: Urine Color Straw, Urine Clarity Turbid, Urine pH 6.0, Ur Specific [place] 1.015, Urine Protein 100 H, Urine Glucose (UA) 1000 H, Urine Ketones Negative, Urine Occult Blood 250 H, Urine Nitrite Negative, Urine [place] irubin Negative, Urine Urobilinogen Normal, Ur Leukocyte Esterase 500 H, Urine RBC 0 SEEN, Urine WBC >100 SEEN, Ur Squamous Epith Cells 0 SEEN, Urine Bacteria 0 SEEN, Urine Mucus 0 SEEN 12/02/22 21:03: POC Glucose 296 H 12/03/22 06:03: POC Glucose 151 H 12/03/22 06:10: WBC 7.9, RBC 3.84 L, Hgb 11.5 L, Hct 35.1 L, MCV 91.4, MCH 29.9, MCHC 32.8, RDW Std Deviation 48.1 H, RDW Coeff of Danielle 14.3, Plt Count 303, MPV 9.4, Immature Gran % (Auto) 0.500, Neut % (Auto) 81.1 H, Lymph % (Auto) 10.4 L, [place] % (Auto) 5.6, Eos % (Auto) 2.0, Baso % (Auto) 0.4, Absolute Neuts (auto) 6.4, Absolute Lymphs (auto) 0.82 L, Nucleated RBC % 0 12/03/22 06:10: Sodium 141, Potassium 5.0, Chloride 114 H, Carbon Dioxide 21.0, Anion Gap 6, BUN 60 H, Creatinine 2.00 H, Estim Creat Clear Calc 27.49, Est GFR (MDRD) Af Amer 41 L, Est GFR (MDRD) Non-Af 34 L, BUN/Creatinine Ratio 30.0 H, Glucose 168 H, Calcium 8.7, Magnesium 2.3, Total Bilirubin 0.40, AST 41 H, ALT 60, Alkaline Phosphatase 136 H, Total Protein 6.1 L, Albumin 2.0 L, Globulin 4.1, Albumin/Globulin Ratio 0.5 L 12/03/22 06:10: Phosphorus 2.9 12/03/22 06:10: TSH 0.18 L 12/03/22 10:57: POC Glucose 179 H Radiography Diagnostic Testing: Radiology Impression Abdomen/Pelvis CT 12/02/22 17:25 IMPRESSION: 1. Complex fluid collection between the rectum and urinary bladder measures 4.1 x 6.7 x 6.2 cm, possible abscess versus urinoma (given history). 2. Right ureter stent with right hydronephrosis including air-fluid levels, possible pyonephrosis versus air related to recent intervention. Electronically Signed: Dany Anne (Brooks), at 18:33 EDT Reading Location ID and State: [facility] / [place] , Service support , Physical Exam Const alert, oriented x3 and no apparent distress Constitutional Narrative: Elderly white male sitting up in bed, eating breakfast, family at bedside, appears as he is feeling much improved HEENT normocephalic, head/scalp atraumatic, hearing grossly normal bilaterally and moist oral mucous membranes Resp normal respiratory effort, no retractions, no use of accessory muscles and clear to auscultation bilaterally Auscultation: Negative for rales, rhonchi or wheezes Cardio regular rate, regular rhythm, S1 normal heart sound, S2 normal heart sound, no murmurs, no rub, no gallops and no clicks GI normal to inspection, nondistended, normoactive bowel sounds, soft to palpation and non-tender GI Narrative: Tenderness in suprapubic area resolved Extremity no clubbing, cyanosis or edema Neuro oriented x3, CN's II-XII intact bilaterally, moves all extremities and no focal motor deficits Neuro Narrative: Generalized weakness on exam-proximal greater than distal Speech: speech normal Motor Exam: Negative for strength 5/5 throughout Psych affect normal Psych Narrative: Pleasant, appropriate Assessment & Plan Assessment/Plan (1) Acute kidney injury: (2) Acute UTI: (3) Urinary retention: (4) Hyperglycemia: (5) Severe malnutrition: (6) Diarrhea: (7) Generalized weakness: (8) Weight loss: (9) Edema: PLAN: Plan AKBAR -Suspect related to urinary retention -Continue Pyle at discharge -P.o. intake is improved, decrease IV fluids to 50 cc/h and if continued p.o. intake is adequate will discontinue altogether -Avoid nephrotoxins -Continue to hold home glimepiride and metformin -Repeat BMP in a.m. Complicated UTI with possible abscess -Continue vancomycin and Zosyn for now -MRSA PCR is pending -Blood and urine cultures are pending Urinary retention with recent transurethral resection and right ureteral s tent/urinoma -Continue Pyle -Continue Flomax -Urology has evaluated the patient and recommending discharge on appropriate antibiotics and with Pyle once stable -No anticipated surgical intervention required Diarrhea -Resolved after admission -Discontinue enteric panel and C. difficile Severe malnutrition -Patient with significant weight loss in the last 12 days -Continue supplements -Dietitian following Lower extremity edema -Swelling is improved -Dopplers negative for DVT DM-2 with hyperglycemia -Lantus 15 units at at bedtime -Sliding scale -Hold metformin Elevated blood pressure -Blood pressures remain elevated -We will start low-dose amlodipine 5 mg daily Bladder cancer -Recent transurethral resection and right ureteral stent placement -Dr. Hankins following -Consult urology DVT prophylaxis -Lovenox subcu daily CODE STATUS Full code Charges/Coding Visit Charges Inpatient E&M: 88360 Subs Hosp L2
[2022-12-03] MEDS: amLODIPine 5 MG Tablet PO (13:05)
[2022-12-03] MEDS: Tamsulosin HCl 0.4 MG Capsule 0.8 MG PO (17:24)
[2022-12-03] MEDS: Vancomycin IV 1,000 MG/200 ML BAG 200 MG IV (19:49)
[2022-12-03] MEDS: Atorvastatin Calcium 10 MG Tablet PO (19:53)
[2022-12-03] MEDS: Insulin Glargine-YFGN 100 UNIT/ML Pen 15 UNIT SC (20:04)
[2022-12-03 21:35] LABS: Bedside Glucose 157 mg/dL (74-106)
[2022-12-04 00:54] LABS: Bedside Glucose 195 mg/dL (74-106)
[2022-12-04] MEDS: Insulin Lispro 100 UNIT/ML INSULN.PEN SC ×2 (05:55→11:45)
[2022-12-04 05:57] LABS: Absolute Lymphocyte Count 0.76 X10^3/uL (0.83-4.51); Absolute Neutrophil Count 5.1 X10^3/uL (2.0-7.7); Basophil# 0.02 X10^3/uL; Basophil% 0.3 % (0-1); Eosinophil# 0.16 X10^3/uL; Eosinophils% 2.5 % (0-5); Hematocrit 36.6 % (40-54); Hemoglobin 11.6 g/dL (13.0-16.5); Lymphocyte # 0.76 X10^3/ul (0.83-4.51); Lymphocyte % 11.8 % (19-41); Mean Corp Hgb Conc 31.7 g/dL (32-36); Mean Corpuscular Hgb 29.7 pg (27.0-32.0); Mean Corpuscular Volume 93.8 fL (80-94); Mean Platelet Vol. 9.3 fl (6.2-12.0); Monocyte# 0.32 X10^3/uL; NRBC Flagged by Analyzer 0 % (0-5); Neutrophil # 5.13 X10^3/uL (2.7-7.7); Neutrophil % 79.5 % (47-70); Platelet Count 292 K/mm3 (150-450); RBC Distribution Width CV 14.2 % (11.6-14.6); RBC Distribution Width SD 48.8 fl (35.1-43.9); White Blood Count 6.5 K/mm3 (4.4-11.0)
[2022-12-04 05:58] VITALS: BP 120/68; PULSE 74; RESP 16; TEMP 36.7; O2SAT 97
[2022-12-04 06:37] LABS: Anion Gap 3 (5-15); BUN 48 mg/dL (7-18); BUN/Creat Ratio 26.2 RATIO (10-20); Chloride 113 mmol/L (98-107); Creatinine, Serum 1.83 mg/dL (0.70-1.30); EST Glomerular Filtration Rate 38 mL/min (>60); Est Glom Filt Rate - Afr Amer 46 mL/min (>60); Estimated Creatinine Clearance 30.05 ml/min; Glucose 173 mg/dL (74-106); Potassium 5.2 mmol/L (3.5-5.1); Sodium Level 139 mmol/L (136-145)
[2022-12-04 07:12] LABS: Bedside Glucose 166 mg/dL (74-106)
[2022-12-04 08:09] VITALS: PULSE 80
[2022-12-04] MEDS: Ensure Plus High Protein 120 ML LIQUID PO (08:16)
[2022-12-04] MEDS: Pantoprazole Sodium 40 MG Tablet PO (08:16)
[2022-12-04] MEDS: Aspirin 81 MG TAB.CHEW PO (08:16)
[2022-12-04] MEDS: Cholecalciferol (Vit D3) 125 MCG CAPSULE (5,000 UNITS) PO (08:16)
[2022-12-04 08:17] VITALS: PULSE 80
[2022-12-04] MEDS: Ascorbic Acid 500 MG Tablet PO (08:17)
[2022-12-04] MEDS: Metoprolol(XL)Succ 100 MG Tablet PO (08:17)
[2022-12-04] MEDS: Multivitamins,Therapeutic Tablet 1 TABLET PO (08:17)
[2022-12-04 09:15] VITALS: O2SAT 95
[2022-12-04 10:44] VITALS: BP 126/65; PULSE 77; RESP 18; TEMP 37; O2SAT 96
[2022-12-04] MEDS: Enoxaparin 30 MG/0.3 ML Syringe SC (10:46)
[2022-12-04] MEDS: 0.9% Saline Lock 10 ML Syringe IV (10:47)
[2022-12-04] MEDS: amLODIPine 5 MG Tablet PO (10:49)
[2022-12-04 11:16] LABS: M R Staph aureus DNA By PCR Negative (Negative); Probe Check PASS; Specimen Processing Control PASS
--- NOTE | 2022-12-04 11:46 | DS.PCM_ITS ---
Providers Date of Admission: 12/02/22 Primary Care Physician: Dr. Del Fox, DO Consultations 12/02/22 19:57 Consult: Urology Routine Consulting Provider: Jared Hankins Reason for Consult: Urinary Retention EMERGENT Consult: No MD Notified: Yes Date Notified: 12/02/22 Time Notified: 18:03 Method of Notification: ED Physician Initiated Reason For Visit: AKBAR ON CKD/UTI/URINARY RETENTION Diagnosis Discharge Diagnosis (1) Acute kidney injury: Status: Acute Code(s): N17.9 - Acute kidney failure, unspecified (2) Acute UTI: Status: Acute Code(s): N39.0 - Urinary tract infection, site not specified (3) Urinary retention: Status: Acute Code(s): R33.9 - Retention of urine, unspecified (4) Hyperglycemia: Status: Acute Code(s): R73.9 - Hyperglycemia, unspecified (5) Severe malnutrition: Status: Acute Code(s): E43 - Unspecified severe protein-calorie malnutrition (6) Diarrhea: Status: Acute Code(s): R19.7 - Diarrhea, unspecified (7) Generalized weakness: Status: Acute Code(s): R53.1 - Weakness (8) Weight loss: Status: Acute Code(s): R63.4 - Abnormal weight loss (9) Edema: Status: Acute Code(s): R60.9 - Edema, unspecified Plan AKBAR -Suspect related to urinary retention -Continue Pyle at discharge -P.o. intake is improved, decrease IV fluids to 50 cc/h and if continued p.o. intake is adequate will discontinue altogether -Avoid nephrotoxins -Continue to hold home glimepiride and metformin -Repeat BMP in a.m. Complicated UTI with possible abscess -Continue vancomycin and Zosyn for now -MRSA PCR is pending -Blood and urine cultures are pending Urinary retention with recent transurethral resection and right ureteral stent/urinoma -Continue Pyle -Continue Flomax -Urology has evaluated the patient and recommending discharge on appropriate antibiotics and with Pyle once stable -No anticipated surgical intervention required Diarrhea -Resolved after admission -Discontinue enteric panel and C. difficile Severe malnutrition -Patient with significant weight loss in the last 12 days -Continue supplements -Dietitian following Lower extremity edema -Swelling is improved -Dopplers negative for DVT DM-2 with hyperglycemia -Lantus 15 units at at bedtime -Sliding scale -Hold metformin Elevated blood pressure -Blood pressures remain elevated -We will start low-dose amlodipine 5 mg daily Bladder cancer -Recent transurethral resection and right ureteral stent placement -Dr. Hankins following -Consult urology DVT prophylaxis -Lovenox subcu daily CODE STATUS Full code Medications at Discharge Home Medications atorvastatin 10 mg tablet 40 mg PO QHS Check with primary doctor 12/30/14 glimepiride 4 mg tablet 4 mg PO DAILY Check with primary doctor 12/30/14 cholecalciferol (vitamin D3) 125 mcg (5,000 unit) capsule 125 mcg PO DAILY Check with primary doctor 12/02/22 empagliflozin 25 mg tablet (Jardiance) 25 mg PO DAILY Check with primary doctor 12/02/22 lisinopril 5 mg tablet 5 mg PO DAILY Check with primary doctor 12/02/22 metformin 1,000 mg tablet 1,000 mg PO BID Check with primary doctor 12/02/22 metoprolol succinate 100 mg tablet,extended release 24 hr 100 mg PO DAILY Check with primary doctor 12/02/22 pantoprazole 40 mg tablet,delayed release 40 mg PO DAILY Check with primary doctor 12/02/22 tamsulosin 0.4 mg capsule 0.8 mg PO QHS Check with primary doctor 12/02/22 fluconazole 100 mg tablet 200 mg PO DAILY 13 days #26 tabs 12/04/22 Weight / BMI Weight Weight: 89.2 kg Body Mass Index (BMI) 29.0 ABG / Lab / Microbiology Data Result Diagrams: 12/04/22 05:48 12/04/22 05:48 Laboratory: Laboratory Results - last 24 hr 12/03/22 16:02: POC Glucose 157 H 12/03/22 20:04: POC Glucose 195 H 12/04/22 05:48: WBC 6.5, RBC 3.90 L, Hgb 11.6 L, Hct 36.6 L, MCV 93.8, MCH 29.7, MCHC 31.7 L, RDW Std Deviation 48.8 H, RDW Coeff of Danielle 14.2, Plt Count 292, MPV 9.3, Immature Gran % (Auto) 0.900, Neut % (Auto) 79.5 H, Lymph % (Auto) 11.8 L, [place] % (Auto) 5.0, Eos % (Auto) 2.5, Baso % (Auto) 0.3, Absolute Neuts (auto) 5.1, Absolute Lymphs (auto) 0.76 L, Nucleated RBC % 0 12/04/22 05:48: Sodium 139, Potassium 5.2 H, Chloride 113 H, Carbon Dioxide 23.0, Anion Gap 3 L, BUN 48 H, Creatinine 1.83 H, Estim Creat Clear Calc 30.05, Est GFR (MDRD) Af Amer 46 L, Est GFR (MDRD) Non-Af 38 L, BUN/Creatinine Ratio 26.2 H, Glucose 173 H, Calcium 9.0 12/04/22 05:54: POC Glucose 166 H 12/04/22 06:15: MRSA (PCR) Negative Microbiology: Microbiology 12/02/22 15:50 Urine, Clean Catch Urine Culture - Final Presumptive C albicans Discharge Plan Admission Admit Date/Time: 12/02/22 18:01 Primary Reason for Your Visit: Weight loss/difficulty urinating/dysuria Attending Provider: Ashley Flower Primary Care Provider: Del Fox Consulting Providers: Jared Hankins Instructions Additional Instructions / Restrictions: 1. Call Dr. Hankins's office tomorrow to schedule appointment to be seen within the next 10 to 14 days 2. Please call his office with any issues with regards to your Pyle catheter 3. Please continue antibiotics as below for the complete course Discharge Orders/Prescriptions Prescriptions: New fluconazole 100 mg Tablet 200 mg PO DAILY 13 Days Qty: 26 0RF Rx Instructions: Start first oral dose tomorrow 12/05/2022 Continued atorvastatin 10 MG tablet 40 mg PO QHS glimepiride 4 MG tablet 4 mg PO DAILY metoprolol succinate 100 mg tablet extended release 24 hr 100 mg PO DAILY tamsulosin 0.4 mg Capsule 0.8 mg PO QHS pantoprazole 40 mg tablet,delayed release (DR/EC) 40 mg PO DAILY metformin 1,000 mg Tablet 1,000 mg PO BID lisinopril 5 mg tablet 5 mg PO DAILY Jardiance 25 mg tablet 25 mg PO DAILY cholecalciferol (vitamin D3) 125 mcg (5,000 unit) capsule 125 mcg PO DAILY Label Comments: TAKE 1 CAPSULE BY MOUTH EVERY DAY Referrals / Follow Up: Jared Hankins MD [Med Staff - Active Staff] - See Referral Note (Call to make an appointment to be seen within the next 10 to 14 days) Del Fox DO [Primary Care Provider] - Within 2 Weeks Disposition Disposition (needs filled in before D/C Order can be placed): Home, Self Care Charges/Coding Visit Charges Inpatient E&M: 79631 Disch Hosp >30min
--- NOTE | 2022-12-04 11:46 | PCM.DC.SUM ---
Providers Date of Admission: 12/02/22 Date of Discharge: 12/04/22 Primary Care Physician: Dr. Del Fox, Consultations 12/02/22 19:57 Consult: Urology Routine Consulting Provider: Jared Hankins Reason for Consult: Urinary Retention EMERGENT Consult: No MD Notified: Yes Date Notified: 12/02/22 Time Notified: 18:03 Method of Notification: ED Physician Initiated Reason For Visit: AKBAR ON CKD/UTI/URINARY RETENTION Diagnosis Discharge Diagnosis (1) Acute kidney injury: Status: Acute Code(s): N17.9 - Acute kidney failure, unspecified (2) Acute UTI: Status: Acute Code(s): N39.0 - Urinary tract infection, site not specified (3) Urinary retention: Status: Acute Code(s): R33.9 - Retention of urine, unspecified (4) Hyperglycemia: Status: Acute Code(s): R73.9 - Hyperglycemia, unspecified (5) Severe malnutrition: Status: Acute Code(s): E43 - Unspecified severe protein-calorie malnutrition (6) Diarrhea: Status: Acute Code(s): R19.7 - Diarrhea, unspecified (7) Generalized weakness: Status: Acute Code(s): R53.1 - Weakness (8) Weight loss: Status: Acute Code(s): R63.4 - Abnormal weight loss (9) Edema: Status: Acute Code(s): R60.9 - Edema, unspecified Medications at Discharge Home Medications atorvastatin 10 mg tablet 40 mg PO QHS Check with primary doctor 12/30/14 glimepiride 4 mg tablet 4 mg PO DAILY Check with primary doctor 12/30/14 cholecalciferol (vitamin D3) 125 mcg (5,000 unit) capsule 125 mcg PO DAILY Check with primary doctor 12/02/22 empagliflozin 25 mg tablet (Jardiance) 25 mg PO DAILY Check with primary doctor 12/02/22 lisinopril 5 mg tablet 5 mg PO DAILY Check with primary doctor 12/02/22 metformin 1,000 mg tablet 1,000 mg PO BID Check with primary doctor 12/02/22 metoprolol succinate 100 mg tablet,extended release 24 hr 100 mg PO DAILY Check with primary doctor 12/02/22 pantoprazole 40 mg tablet,delayed release 40 mg PO DAILY Check with primary doctor 05/27/23 tamsulosin 0.4 mg capsule 0.8 mg PO QHS Check with primary doctor 12/02/22 fluconazole 100 mg tablet 200 mg PO DAILY 13 days #26 tabs 12/04/22 Hospital Course Operations None Procedures - (CT abdomen and pelvis) Summary of Care Provided Minutes Spent on Discharge: 38 Hospital Course: MIREYA LIM, is a 82 M who presented to the emergency department at 12/02/2022 due to not feeling well overall.? The patient reported he had a decline in his health since recent bladder surgery.? On 11/17/2022 a transurethral resection and a right stent placement were performed at [facility] by Dr. Hankins.? He stated since that point time he had been feeling very poorly. He lost 20 pound and had no appetite. Denied nausea or vomiting but did report significant diarrhea that had been quite voluminous and frequent. He had been on Cipro perioperatively. He stated he had been having dysuria, frequent urination of low volumes and decreased urine output.? He denied any gross hematuria.? He was to follow-up with Dr. Hankins in on 12/05/2022 but was feeling so poorly his son brought him to the emergency department. Vitals on presentation demonstrated temperature of 97.1, heart rate 79, blood pressure 117/59, pulse ox was 98% on room air.? His CBC was unremarkable however he did have a left shift with an 86.1% neutrophilia.? His chemistry panel was notable for a markedly elevated BUN and creatinine at 86 and 2.68 respectively (baseline serum creatinine on previous lab done at [facility] is between 1.45 and 1.6.? His serum glucose was 387.? His urine was turbid and had occult blood and leuk esterase with loaded white blood cells but no bacteria.? I asked the emergency department to obtain a CT without contrast and this showed a complex fluid collection between the rectum and urinary bladder that measured 4.1 x 6.7 x 6.2 cm suggestive of abscess versus urinoma as well as a right ureteral stent with right hydronephrosis including air-fluid levels. A Pyle was placed and the case was discussed with Dr. Hankins who agreed with Pyle placement and ongoing antibiotics.? Blood and urine cultures sent and broad-spectrum antibiotics with vancomycin and Zosyn were initiated. Upon reevaluation the day after admission the patient reported he was feeling 1000 times better than he did at presentation. His diarrhea had resolved and he actually had no diarrhea during his hospital stay. We initially ordered stool studies to look for enteric pathogens including C. difficile but this was canceled as he had no further stooling during his hospital course. His appetite improved dramatically and his kidney function improved from 2.68-2.0 in about 18 hours. He was seen by physical and Occupational Therapy and did very well with no need for ongoing therapy services. He stated the resolution of his previous symptoms and overall poor feeling resolved as soon as his Pyle was placed. His serum creatinine improved further to 1.83 at the time of discharge with a baseline of 1.45-1.55 per previous documentation. I do anticipate that he should continue to have improvement as we have ever relieved his urinary obstruction with placement of his Pyle. It is highly doubtful that the fluid collection noted on CT was abscess with his rapid improvement and urinoma is suspected. He was evaluated by urology and they recommended discharge home with a Pyle catheter in place and follow-up in the outpatient setting in a few weeks to have his catheter removed and his stent remove prior to repeat imaging as an outpatient to be sure that the urinoma had resolved. No surgical intervention was felt to be necessary to resolve the urinoma. Given his dramatic improvement, no need for ongoing therapy services we felt it was prudent to discharge him home on 12/04/2022. His urine culture did grow Corina albicans at greater than 100,000 colony count so he was started on fluconazole with a 400 mg load and then 200 mg daily for 14 total day course. His first dose was given prior to discharge. We felt this was required given his recent surgical instrumentation and stent placement. I did discuss with Dr. Abreu from infectious disease and he agreed with the course. He was discharged home in stable condition on 12/04/2022. I have asked him to follow-up with Dr. Hankins as recommended above and his primary care physician within the next 1 to 2 weeks. Discharge diagnoses: AKBAR secondary to urinary obstruction Corina UTI with recent intervention and stent placement Debility-much improved and no therapy needed at discharge Severe malnutrition Diarrhea-resolved Urinoma Urinary retention-resolved with Pyle Lower extremity edema-resolved Hypertension Bladder cancer Physical Exam Const alert, oriented x3 and no apparent distress; Negative for well nourished Constitutional Narrative: Elderly white male sitting up in bed, sitting up in a chair at the bedside, at bedside, appears well, nontoxic and having no distress General Appearance: cooperative, comfortable, well kempt and well developed Orientation / Consciousness: awake, oriented to person, oriented to place and oriented to time Exam Limitations: no limitations Nutritional Appearance: overweight HEENT normocephalic, head/scalp atraumatic, hearing grossly normal bilaterally and moist oral mucous membranes HEENT Narrative: Mallampati 2, no thrush Eyes PERRL, EOMs intact bilaterally and conjunctivae normal Eyes Narrative: No scleral icterus Neck no lymphadenopathy, supple, no JVD and no carotid bruits Neck Narrative: Trachea midline, no thyroid enlargement Resp normal respiratory effort, no retractions, no use of accessory muscles and clear to auscultation bilaterally Auscultation: Negative for rales, rhonchi or wheezes Cardio regular rate, regular rhythm, S1 normal heart sound, S2 normal heart sound, no murmurs, no rub, no gallops and no clicks GI normal to inspection, nondistended, normoactive bowel sounds, soft to palpation and non-tender Extremity no clubbing, cyanosis or edema Skin no rashes or lesions noted, no wounds, skin turgor normal, no jaundice, no petechiae and no mottling Neuro oriented x3, CN's II-XII intact bilaterally, moves all extremities and no focal motor deficits Neuro Narrative: Generalized weakness on exam-proximal greater than distal--> much improved and now only mild Speech: speech normal Motor Exam: Negative for strength 5/5 throughout Psych affect normal Psych Narrative: Pleasant, appropriate Weight / BMI Weight Weight: 89.2 kg Body Mass Index (BMI) 29.0 ABG / Lab / Microbiology Data Result Diagrams: 12/04/22 05:48 12/04/22 05:48 Laboratory: Laboratory Results - last 24 hr 12/03/22 16:02: POC Glucose 157 H 12/03/22 20:04: POC Glucose 195 H 12/04/22 05:48: WBC 6.5, RBC 3.90 L, Hgb 11.6 L, Hct 36.6 L, MCV 93.8, MCH 29.7, MCHC 31.7 L, RDW Std Deviation 48.8 H, RDW Coeff of Danielle 14.2, Plt Count 292, MPV 9.3, Immature Gran % (Auto) 0.900, Neut % (Auto) 79.5 H, Lymph % (Auto) 11.8 L, [place] % (Auto) 5.0, Eos % (Auto) 2.5, Baso % (Auto) 0.3, Absolute Neuts (auto) 5.1, Absolute Lymphs (auto) 0.76 L, Nucleated RBC % 0 12/04/22 05:48: Sodium 139, Potassium 5.2 H, Chloride 113 H, Carbon Dioxide 23.0, Anion Gap 3 L, BUN 48 H, Creatinine 1.83 H, Estim Creat Clear Calc 30.05, Est GFR (MDRD) Af Amer 46 L, Est GFR (MDRD) Non-Af 38 L, BUN/Creatinine Ratio 26.2 H, Glucose 173 H, Calcium 9.0 12/04/22 05:54: POC Glucose 166 H 12/04/22 06:15: MRSA (PCR) Negative Microbiology: Microbiology 12/02/22 15:50 Urine, Clean Catch Urine Culture - Final Presumptive C albicans D/C Instructions Discharge Diet: Low fat / Low cholesterol, 1800 Calorie Control Diet and - (Drink supplements twice daily in between lunch and dinner and breakfast and lunch until energy returns and appetite is at your baseline) Discharge Activity: Return to Normal Activity Meaningful Use Info Meaningful Use Diagnoses (Choose all that apply): None applicable Discharge Plan Admission Admit Date/Time: 12/02/22 18:01 Primary Reason for Your Visit: Weight loss/difficulty urinating/dysuria Attending Provider: Ashley Flower Primary Care Provider: Del Fox Consulting Providers: Jared Hankins Instructions Additional Instructions / Restrictions: 1. Call Dr. Hankins's office tomorrow to schedule appointment to be seen within the next 10 to 14 days 2. Please call his office with any issues with regards to your Pyle catheter 3. Please continue antibiotics as below for the complete course Discharge Orders/Prescriptions Prescriptions: New fluconazole 100 mg Tablet 200 mg PO DAILY 13 Days Qty: 26 0RF Rx Instructions: Start first oral dose tomorrow 12/05/2022 Continued atorvastatin 10 MG tablet 40 mg PO QHS glimepiride 4 MG tablet 4 mg PO DAILY metoprolol succinate 100 mg tablet extended release 24 hr 100 mg PO DAILY tamsulosin 0.4 mg Capsule 0.8 mg PO QHS pantoprazole 40 mg tablet,delayed release (DR/EC) 40 mg PO DAILY metformin 1,000 mg Tablet 1,000 mg PO BID lisinopril 5 mg tablet 5 mg PO DAILY Jardiance 25 mg tablet 25 mg PO DAILY cholecalciferol (vitamin D3) 125 mcg (5,000 unit) capsule 125 mcg PO DAILY Label Comments: TAKE 1 CAPSULE BY MOUTH EVERY DAY Referrals / Follow Up: Jared Hankins MD [Med Staff - Active Staff] - See Referral Note (Call to make an appointment to be seen within the next 10 to 14 days) Del Fox DO [Primary Care Provider] - Within 2 Weeks Disposition Disposition (needs filled in before D/C Order can be placed): Home, Self Care Charges/Coding Visit Charges Inpatient E&M: 73112 Disch Hosp >30min
[2022-12-04] MEDS: Fluconazole 100 MG Tablet 400 MG PO (11:56)
[2022-12-04 12:09] LABS: Bedside Glucose 279 mg/dL (74-106)
== END 2022-12-04 13:28 | disposition home or self-care (01) | DRG 682 ==
LOC: ED 14:58 → MS3 21:17
PROVIDERS: Physician Assistant; Admitting Provider Internal Medicine; Emergency Provider Emergency Medicine; PCP Student in an Organized Health Care Education/Training Program; Visit Provider Internal Medicine
DX: N17.9 Acute kidney failure, unspecified (principal); E43 Unspecified severe protein-calorie malnutrition; B37.49 Other urogenital candidiasis; C67.9 Malignant neoplasm of bladder, unspecified; E11.65 Type 2 diabetes mellitus with hyperglycemia; E86.0 Dehydration; Z79.4 Long term (current) use of insulin; I12.9 Hypertensive chronic kidney disease with stage 1 through stage 4 chronic kidney disease, or unspecified chronic kidney disease; R19.7 Diarrhea, unspecified; N13.6 Pyonephrosis; Z79.82 Long term (current) use of aspirin; N36.8 Other specified disorders of urethra; Z79.84 Long term (current) use of oral hypoglycemic drugs; R60.0 Localized edema; R33.9 Retention of urine, unspecified; R63.4 Abnormal weight loss; Z68.29 Body mass index [BMI] 29.0-29.9, adult
CPT/HCPCS: 36415; 51702; 74176; 80048; 80053; 81001; 82962; 83735; 84100; 84443; 85025; 87040; 87086; 87088; 87641; 93970; 94668; 97116; 97162; 97166; 97530; 97802; 99252; 99285; J7030; J7050; J7120; A4216; G0463; J2405

== ENCOUNTER 2022-12-10 12:48 | Emergency (ER) | payer MEDICARE, OTHER, SELFPAY ==
[2022-12-10 12:49] VITALS: BP 114/61; PULSE 81; RESP 18; TEMP 35.8; O2SAT 100
[2022-12-10 13:02] VITALS: BMI 28.8
--- NOTE | 2022-12-10 13:39 | EDS_ITS ---
HPI History of Present Illness Chief Complaint: Pyle [facility] Medical History (Updated 12/10/22 @ 14:[address] Dmitry Garrison, DO) Bladder cancer DM II (diabetes mellitus, type II), controlled Home Medications atorvastatin 10 mg tablet 40 mg PO QHS Check with primary doctor 12/30/14 [History Last Taken 12/01/22] glimepiride 4 mg tablet 4 mg PO DAILY Check with primary doctor 12/30/14 [History Last Taken 12/02/22] cholecalciferol (vitamin D3) 125 mcg (5,000 unit) capsule 125 mcg PO DAILY Check with primary doctor 12/02/22 [History Last Taken 12/02/22] empagliflozin 25 mg tablet (Jardiance) 25 mg PO DAILY Check with primary doctor 12/02/22 [History Last Taken Unknown] lisinopril 5 mg tablet 5 mg PO DAILY Check with primary doctor 12/02/22 [History Last Taken 12/02/22] metformin 1,000 mg tablet 1,000 mg PO BID Check with primary doctor 12/02/22 [History Last Taken Unknown] metoprolol succinate 100 mg tablet,extended release 24 hr 100 mg PO DAILY Check with primary doctor 12/02/22 [History Last Taken 12/01/22] pantoprazole 40 mg tablet,delayed release 40 mg PO DAILY Check with primary doctor 12/02/22 [History Last Taken 12/02/22] tamsulosin 0.4 mg capsule 0.8 mg PO QHS Check with primary doctor 12/02/22 [History Last Taken 12/02/22] fluconazole 100 mg tablet 200 mg PO DAILY 13 days #26 tabs 12/04/22 [Rx Last Taken Unknown] sulfamethoxazole 800 mg-trimethoprim 160 mg tablet (Bactrim DS) 1 tab PO BID 7 days #14 tabs 12/10/22 [Rx Last Taken Unknown] Allergy/AdvReac Type Severity Reaction Status Date / Time No Known Allergies Allergy Verified 12/10/22 12:49 Surgical History H/O transurethral resection of bladder tumor (TURBT) Hx of CABG S/P ureteral stent placement Social History household members: spouse housing: house Smoking Status: Never smoker alcohol intake: never substance use type: does not use EXAM Physical Exam Const Vital Signs: 12/10/22 12:49 12/10/22 14:23 Temperature 96.4 F L Temperature Source Temporal Pulse Rate 81 Respiratory Rate 18 18 Blood Pressure 114/61 Blood Pressure Mean 78 Pulse Ox 100 Oxygen Delivery Method [place] [facility] [place] Medical decision making narrative: HISTORY OF PRESENT ILLNESS: 82-year-old male here with decreased urine output from his Pyle, lower abdominal pain since this morning. States he got the Pyle placed approximately 1 week ago he notes decreased urination. states she usually changes his Pyle bag at this point in the day. He states he has distention and pain in his lower abdomen. Denies any fevers vomiting chest pain or shortness of breath. Last bowel was yesterday he denies any melena or hematochezia. REVIEW OF SYSTEMS: Pertinent positives: Lower abdominal pain, urinary retention Pertinent negatives: Fever nausea vomiting PHYSICAL EXAM: Nursing triage notes reviewed, Vital signs reviewed Constitutional: please see [facility] HENT: MMM Eyes: Pupils equal round and reactive to light, Extraocular muscles intact Neck: No stridor, no JVD, full neck ROM Lungs: Clear to auscultation, No wheezing or rales. No increased work of breathing, no conversational dyspnea, no accessory muscle use, no nasal flaring. No respiratory distress noted Heart: Regular rate and rhythm, No murmurs, No rubs and No gallops, 2+ distal pulses (radial, femoral, posterior tibial) in all extremities Abdomen: Soft, fullness in the lower abdomen, but no rigidity, rebound or guarding, no obvious peritoneal signs, no palpable pulsatile abdominal masses, no auscultated abdominal bruit : No CVAT, Pyle in place, no blood at urethral meatus Extremities: No edema Neuro: No focal neurological deficits, cranial nerves II through XII intact, 5/5 strength in all extremities. Intact sensation to light touch in all extremities, 2+ reflexes bilateral patella tendons. Normal gait. No ataxia. Skin: No rash or lesions noted MEDICAL DECISION MAKING: Chief Complaint: Urinary retention External records reviewed: Recent hospitalization for bladder tumor removal by Dr. Hankins Factors affecting care: Status post CABG, urethral stent placement and bladder tumor Social determinants of health: Elderly History obtained from others: The patient's Consults: none ALL IMAGES HAVE BEEN PERSONALLY REVIEWED AND INTERPRETED BY MYSELF. [facility] Narrative: Patient was hemodynamically stable, afebrile, nontoxic-appearing. Mild distention the lower abdomen mild TTP. No peritoneal signs. I considered the following differential diagnosis: Urinary retention, UTI, Pyle catheter obstruction Patient's Pyle was replaced. He put out approximately 800 cc of fluid. He felt immediate relief. Is consistent with urinary retention. I did give prophylactic antimicrobial therapy given urethral manipulation and concern for urinary tension which predispose patient to UTI. I sent urine for culture. We will follow culture results. Gave urology follow-up instructions and strict return precautions. Patient and loved one expressed understanding. They agreed to return if symptoms change or worsen. Patient expressed understanding and agree with the plan. Total critical care time today provided was at least 0 minutes. This excludes separately billable procedures. There was a high probability of clinically significant/life threatening deterioration in the patient's condition which required my urgent intervention. Shared decision making: I will have a discussion with the patient and or visitors regarding risk/benefits of further testing or admission. They will be made aware of of the risk/benefits inherent in this decision they will be given the opportunity to voice understanding. Discharge Plan Triage Chief Complaint: Pyle C/O ED Provider: Dmitry Garirson Dx/Rx/DC Orders Clinical Impression: Urinary retention Instructions: Indwelling Urinary Catheter Dc Prescriptions: New sulfamethoxazole-trimethoprim [Bactrim DS] 800-160 mg tablet 1 tab PO BID 7 Days Qty: 14 0RF No Action atorvastatin 10 MG tablet 40 mg PO QHS glimepiride 4 MG tablet 4 mg PO DAILY metoprolol succinate 100 mg tablet extended release 24 hr 100 mg PO DAILY tamsulosin 0.4 mg Capsule 0.8 mg PO QHS pantoprazole 40 mg tablet,delayed release (DR/EC) 40 mg PO DAILY metformin 1,000 mg Tablet 1,000 mg PO BID lisinopril 5 mg tablet 5 mg PO DAILY Jardiance 25 mg tablet 25 mg PO DAILY cholecalciferol (vitamin D3) 125 mcg (5,000 unit) capsule 125 mcg PO DAILY Label Comments: TAKE 1 CAPSULE BY MOUTH EVERY DAY fluconazole 100 mg Tablet 200 mg PO DAILY 13 Days Qty: 26 0RF Rx Instructions: Start first oral dose tomorrow 12/05/2022 Primary Care Provider: Del Fox Referrals: Jared Hankins MD [Med Staff - Active Staff] - Del Fox DO [Primary Care Provider] - Activity Restrictions/Additional Instructions: Thank you for trusting us with your care today! Please take Tylenol (2 pills, 650 mg), ibuprofen (2 pills, 400 mg) every 6 hours as needed for pain and fever control. Please continue take antibiotics as prescribed. Please follow with your primary care physician and/or urologist at the next available appointment. A urine culture has been sent. You will receive a call if this culture shows evidence of resistance (inability to be cured by antibiotics). Please return to the emergency department if your symptoms change or worsen. Specifically if develop abdominal pain, vomiting, fever, decreased urine output. Please follow with your primary care physician for further outpatient evaluation and management. Disposition Disposition: Home, Self Care Discharge Date/Time: 12/10/22 14:24
[2022-12-10] MEDS: Smz/Tmp Ds Tablet 1 TABLET PO (14:12)
[2022-12-10 14:23] VITALS: RESP 18
== END 2022-12-10 14:24 | disposition home or self-care (01) ==
PROVIDERS: Emergency Provider Emergency Medicine; PCP Student in an Organized Health Care Education/Training Program; Visit Provider Emergency Medicine
DX: R33.9 Retention of urine, unspecified (principal); T83.84XA Pain due to genitourinary prosthetic devices, implants and grafts, initial encounter; E11.9 Type 2 diabetes mellitus without complications; Y73.8 Miscellaneous gastroenterology and urology devices associated with adverse incidents, not elsewhere classified
CPT/HCPCS: 51702; 87086; 87088; 99284

== ENCOUNTER 2022-12-13 12:12 | Emergency (ER) | payer MEDICARE, OTHER, SELFPAY ==
[2022-12-13 12:13] VITALS: BP 118/53; PULSE 78; RESP 16; TEMP 35.9; O2SAT 100
[2022-12-13 12:15] VITALS: BMI 26.5
--- NOTE | 2022-12-13 12:45 | EX.ED.GUMALE ---
HPI History of Present Illness Chief Complaint: Complaint Detail of Chief Complaint: Pyle catheter not draining well. Informant: patient and family Pain Onset: Today and Hours Context: Gradual Onset Timing: Intermittent Current Severity: Mild Maximum Severity: Mild Narrative Narrative: 82-year-old male had bladder CA and diabetes. Recently had a procedure done by Dr. Gonzalo Hankins of urology to remove the bladder tumor. Patient is needs a Pyle catheter. He was diagnosed with a UTI the other day and he is currently on Bactrim. Today his Pyle just does not seem to be draining as well. He denies any gross blood or clots. Prior similar symptoms: Yes Recent Illness/Hospitalization: Yes [facility] Medical History Bladder cancer DM II (diabetes mellitus, type II), controlled Home Medications atorvastatin 10 mg tablet 40 mg PO QHS Check with primary doctor 12/30/14 [History Last Taken 12/01/22] glimepiride 4 mg tablet 4 mg PO DAILY Check with primary doctor 12/30/14 [History Last Taken 12/02/22] cholecalciferol (vitamin D3) 125 mcg (5,000 unit) capsule 125 mcg PO DAILY Check with primary doctor 12/02/22 [History Last Taken 12/02/22] empagliflozin 25 mg tablet (Jardiance) 25 mg PO DAILY Check with primary doctor 12/02/22 [History Last Taken Unknown] lisinopril 5 mg tablet 5 mg PO DAILY Check with primary doctor 12/02/22 [History Last Taken 12/02/22] metformin 1,000 mg tablet 1,000 mg PO BID Check with primary doctor 12/02/22 [History Last Taken Unknown] metoprolol succinate 100 mg tablet,extended release 24 hr 100 mg PO DAILY Check with primary doctor 12/02/22 [History Last Taken 12/01/22] pantoprazole 40 mg tablet,delayed release 40 mg PO DAILY Check with primary doctor 12/02/22 [History Last Taken 12/02/22] tamsulosin 0.4 mg capsule 0.8 mg PO QHS Check with primary doctor 12/02/22 [History Last Taken 12/02/22] fluconazole 100 mg tablet 200 mg PO DAILY 13 days #26 tabs 12/04/22 [Rx Last Taken Unknown] sulfamethoxazole 800 mg-trimethoprim 160 mg tablet (Bactrim DS) 1 tab PO BID 7 days #14 tabs 12/10/22 [Rx Last Taken Unknown] Allergy/AdvReac Type Severity Reaction Status Date / Time No Known Allergies Allergy Verified 12/13/22 12:12 Surgical History H/O transurethral resection of bladder tumor (TURBT) Hx of CABG S/P ureteral stent placement Social History household members: spouse housing: house Smoking Status: Never smoker alcohol intake: never substance use type: does not use ROS ROS ED ROS Narrative Denies recent illness. Review of Systems ROS Unobtainable: Denies due to encephalopathy Constitutional Constitutional ED: Denies chills or fever(s) Eyes Eyes: Denies blurry vision ENT ENT ED: Denies ear pain Cardiovascular Cardiovascular: Denies chest pain Respiratory/Chest Respiratory/Chest: Denies cough Gastrointestinal Gastrointestinal: Denies abdominal pain, constipation, diarrhea, nausea or vomiting Genitourinary Genitourinary ED: Denies dysuria Musculoskeletal Musculoskeletal: Denies arthralgias Integumentary Denies abscess Neurologic Neurologic: Denies headache(s) Psychiatric Psychiatric: Denies anxiety Endocrine Endocrinology: Denies polydipsia Hematologic/Lymphatic Hematologic/Lymphatic: Denies easy bleeding Allergic/Immunologic Allergic/Immunologic ED: Denies mouth swelling EXAM Physical Exam Narrative Exam Narrative: Follow-up hearing 82-year-old male. Vital signs stable afebrile. HEENT exam unremarkable. Neck nontender. Lungs are clear. Heart regular rhythm. Abdomen soft nondistended normal bowel sounds no peritoneal signs. Moving all 4 extremities nontender no edema. He does have a Pyle catheter in place to 18 Bulgarian. There is no clots or gross blood. There is a small amount of clear urine in the Pyle bag. Neurologically is awake and alert with no focal motor deficits. Const Vital Signs: 12/13/22 12:13 Temperature 96.6 F L Temperature Source Temporal Pulse Rate 78 Respiratory Rate 16 Blood Pressure 118/53 L Blood Pressure Mean 74 Pulse Ox 100 Oxygen Delivery Method Room Air Positive well nourished and well developed; Negative for obese, cachectic, contractures or unkempt General Appearance ED: well developed and NAD; Negative for unkempt, cachectic, contractures or pallor Nutritional Appearance: Negative for cachectic or obese HEENT Reports moist mucous membranes; Denies dry mucous membranes normocephalic and atraumatic; Negative for trauma or tenderness Mouth ED: No dry mucous membranes Mouth: No dry mucous membranes Eyes PERRL and EOMs intact bilaterally General Eye ED: Negative for pale conjunctiva or scleral icterus Neck no lymphadenopathy, supple and no JVD General: Negative for tenderness Resp normal respiratory effort and clear to auscultation bilaterally Effort and Inspection: Negative for retractions Auscultation: Negative for rales, rhonchi or wheezes Cardio regular rate, regular rhythm, S1 normal heart sound, S2 normal heart sound and no murmurs Rate: Negative for bradycardia or tachycardic GI non-tender, non-distended and no masses Inspection: Negative for abdominal distention Auscultation: normoactive bowel sounds Palpation: soft; Negative for tender or guarding no CVA tenderness Back/Spine no CVA tenderness Extremity normal to inspection General Extremety ED: Negative for edema or tenderness General Extremity: Negative for edema Neuro oriented x3, CN's II-XII intact bilaterally, moves all extremities and no focal motor deficits Sensorium / Orientation: alert, oriented to person, oriented to place and oriented to time; Negative for orientation impaired, confused, lethargic or stuporous Motor Exam: strength 5/5 throughout Psych mental status grossly normal Appearance: Negative for unkempt Attitude: No agitated Mood & Affect: Negative for depressed, anxious or tearful Thought Process: normal thought process Thought Content: normal thought content Skin General Skin Exam: Negative for jaundice or pallor Lesions: no lesions Rashes: no rashes Trauma: Negative for abrasion or laceration MDM MDM MDM Narrative Medical decision making narrative: 82-year-old male Pyle catheter was not draining well today. There is no gross blood or clots. It is an 18 Bulgarian Pyle. Nurse Huma anemia 324 in his bladder. They were able to irrigate the Pyle and is flowing nicely. There was a fair amount of sediment. Discussed with the patient and family I do not think this needs to be changed. He does return if it does not drain. Again there is no signs of blood or clots. He will follow-up with his urologist. Return if worse. He is already on antibiotics for UTI. Discharge Plan Triage Chief Complaint: Complaint ED Provider: Berny Carrillo Dx/Rx/DC Orders Clinical Impression: Pyle catheter problem, History of diabetes mellitus, History of bladder cancer Prescriptions: No Action atorvastatin 10 MG tablet 40 mg PO QHS glimepiride 4 MG tablet 4 mg PO DAILY metoprolol succinate 100 mg tablet extended release 24 hr 100 mg PO DAILY tamsulosin 0.4 mg Capsule 0.8 mg PO QHS pantoprazole 40 mg tablet,delayed release (DR/EC) 40 mg PO DAILY metformin 1,000 mg Tablet 1,000 mg PO BID lisinopril 5 mg tablet 5 mg PO DAILY Jardiance 25 mg tablet 25 mg PO DAILY cholecalciferol (vitamin D3) 125 mcg (5,000 unit) capsule 125 mcg PO DAILY Label Comments: TAKE 1 CAPSULE BY MOUTH EVERY DAY fluconazole 100 mg Tablet 200 mg PO DAILY 13 Days Qty: 26 0RF Rx Instructions: Start first oral dose tomorrow 12/05/2022 sulfamethoxazole-trimethoprim [Bactrim DS] 800-160 mg tablet 1 tab PO BID 7 Days Qty: 14 0RF Primary Care Provider: Del Fox Referrals: Jared Hankins MD [Med Staff - Active Staff] - As Needed Del Fox DO [Primary Care Provider] - Activity Restrictions/Additional Instructions: Follow-up with your urologist as scheduled and/or needed. Return if your catheter is not draining. Plenty of fluids to help dilute any sediment in your urine. Disposition Disposition: Home, Self Care
== END 2022-12-13 13:12 | disposition home or self-care (01) ==
PROVIDERS: Emergency Provider Emergency Medicine; PCP Student in an Organized Health Care Education/Training Program; Visit Provider Emergency Medicine
DX: T83.091A Other mechanical complication of indwelling urethral catheter, initial encounter (principal); E11.9 Type 2 diabetes mellitus without complications; N39.0 Urinary tract infection, site not specified; Z85.51 Personal history of malignant neoplasm of bladder; Y73.8 Miscellaneous gastroenterology and urology devices associated with adverse incidents, not elsewhere classified
CPT/HCPCS: 99282

== ENCOUNTER 2022-12-17 17:04 | Emergency (ER) | payer MEDICARE, OTHER, SELFPAY ==
[2022-12-17 17:05] VITALS: BP 99/57; PULSE 77; RESP 17; TEMP 36.2; O2SAT 99
[2022-12-17 17:07] VITALS: BMI 27.5
--- NOTE | 2022-12-17 18:01 | EX.ED.DYSGE1 ---
HPI <FLAVIA Martinez - Last Filed: 12/17/22 20:21> History of Present Illness Chief Complaint: Pyle C/O Narrative Narrative: Patient presenting today due to decreased urinary drainage from his Pyle catheter since this morning. He reports he has not had any drainage since 9 AM today. He has a Pyle catheter placed due to bladder cancer which is being followed by Dr. Hankins. Patient was here 12/13/2022 due to the same problem and was able to have it flushed and irrigated and he was discharged home. He reports lower abdominal pain due to his bladder being full. He just finished a course of Bactrim yesterday for a UTI. [facility] <FLAVIA Martinez - Last Filed: 12/17/22 20:21> [facility] Medical History Bladder cancer DM II (diabetes mellitus, type II), controlled Home Medications atorvastatin 10 mg tablet 40 mg PO QHS Check with primary doctor 12/30/14 [History Last Taken 12/01/22] glimepiride 4 mg tablet 4 mg PO DAILY Check with primary doctor 12/30/14 [History Last Taken 12/02/22] cholecalciferol (vitamin D3) 125 mcg (5,000 unit) capsule 125 mcg PO DAILY Check with primary doctor 12/02/22 [History Last Taken 12/02/22] empagliflozin 25 mg tablet (Jardiance) 25 mg PO DAILY Check with primary doctor 12/02/22 [History Last Taken Unknown] lisinopril 5 mg tablet 5 mg PO DAILY Check with primary doctor 12/02/22 [History Last Taken 12/02/22] metformin 1,000 mg tablet 1,000 mg PO BID Check with primary doctor 12/02/22 [History Last Taken Unknown] metoprolol succinate 100 mg tablet,extended release 24 hr 100 mg PO DAILY Check with primary doctor 12/02/22 [History Last Taken 12/01/22] pantoprazole 40 mg tablet,delayed release 40 mg PO DAILY Check with primary doctor 12/02/22 [History Last Taken 12/02/22] tamsulosin 0.4 mg capsule 0.8 mg PO QHS Check with primary doctor 12/02/22 [History Last Taken 12/02/22] fluconazole 100 mg tablet 200 mg PO DAILY 13 days #26 tabs 12/04/22 [Rx Last Taken Unknown] sulfamethoxazole 800 mg-trimethoprim 160 mg tablet (Bactrim DS) 1 tab PO BID 7 days #14 tabs 12/10/22 [Rx Last Taken Unknown] Allergy/AdvReac Type Severity Reaction Status Date / Time No Known Allergies Allergy Verified 12/17/22 17:07 Surgical History H/O transurethral resection of bladder tumor (TURBT) Hx of CABG S/P ureteral stent placement Social History household members: spouse housing: house Smoking Status: Never smoker alcohol intake: never substance use type: does not use ROS <FLAVIA Martinez - Last Filed: 12/17/22 20:21> ROS ED Constitutional Constitutional ED: Denies chills or fever(s) Cardiovascular Cardiovascular: Denies chest pain Respiratory/Chest Respiratory/Chest: Denies cough or dyspnea Gastrointestinal Gastrointestinal: Reports abdominal pain; Denies nausea or vomiting Genitourinary Genitourinary ED: Denies dysuria, hematuria or urinary urgency Musculoskeletal Musculoskeletal: Denies arthralgias, back pain or myalgias Integumentary Denies abscess, Abrasions or rash Neurologic Neurologic: Denies weakness EXAM <FLVAIA Martinez - Last Filed: 12/17/22 20:21> Physical Exam Const Vital Signs: 12/17/22 17:05 12/17/22 19:30 Temperature 97.2 F L Temperature Source Temporal Pulse Rate 77 64 Respiratory Rate 17 18 Blood Pressure 99/57 L Blood Pressure Mean 71 Pulse Ox 99 97 Oxygen Delivery Method Room Air Positive well nourished, well developed and no apparent distress General Appearance ED: well developed HEENT Reports normocephalic and head/scalp atraumatic Mouth ED: Yes moist mucous membranes normal Eyes PERRL and EOMs intact bilaterally Neck full ROM and supple Chest Wall inspection of chest normal Resp normal respiratory effort and clear to auscultation bilaterally Cardio regular rate and regular rhythm GI soft to palpation, non-tender, non-distended and no masses Narrative: Small amount of clear urine in the catheter bag, no hematuria or blood clots Back/Spine normal ROM and normal to inspection Extremity normal to inspection and full ROM Neuro oriented x3, CN's II-XII intact bilaterally, moves all extremities, no focal motor deficits and no sensory deficits noted Sensorium / Orientation: awake and alert Psych mental status grossly normal and thought process normal Skin no rashes or lesions noted and no wounds <Dr. Greg Kim, - Last Filed: 12/17/22 19:14> Physical Exam Const Vital Signs: 12/17/22 17:05 12/17/22 19:30 Temperature 97.2 F L Temperature Source Temporal Pulse Rate 77 64 Respiratory Rate 17 18 Blood Pressure 99/57 L Blood Pressure Mean 71 Pulse Ox 99 97 Oxygen Delivery Method Room Air MDM <FLAVIA Martinez - Last Filed: 12/17/22 20:21> [facility] Narrative Medical decision making narrative: Patient presenting today due to decreased drainage from his urinary catheter since 9 AM this morning. He had the same issue on 12/13/22 and nurses were able to irrigate the Pyle and he was discharged home. He just finished a course of Bactrim for UTI yesterday. He reports lower abdominal pain due to his bladder being distended. he is well-appearing and in no acute distress. Nurses were able to irrigate the Pyle and it is now draining normally. No blood clots or gross hematuria. UA obtained to rule out UTI and will be sent for culture. Patient has a follow-up appointment with Dr. Hankins tomorrow morning and be discharged home in stable condition, he is comfortable with plan. Lab Data Attestation: I reviewed the patient's lab results. Labs: Laboratory Results - last 24 hr 12/17/22 18:22 Urine Color Yellow Urine Clarity Cloudy Urine pH 5.0 Ur Specific [place] 1.010 Urine Protein 100 H Urine Glucose (UA) 1000 H Urine Ketones Negative Urine Occult Blood 250 H Urine Nitrite Negative Urine Bilirubin Negative Urine Urobilinogen Normal Ur Leukocyte Esterase 500 H Urine RBC > 100 SEEN Urine WBC >100 SEEN Ur Squamous Epith Cells 0-5 SEEN Amorphous Sediment 1+ URATE Urine Bacteria RARE Urine Mucus 0 SEEN <Dr. Greg Kim, - Last Filed: 12/17/22 19:14> [facility] Lab Data Labs: Laboratory Results - last 24 hr 12/17/22 18:22 Urine Color Yellow Urine Clarity Cloudy Urine pH 5.0 Ur Specific [place] 1.010 Urine Protein 100 H Urine Glucose (UA) 1000 H Urine Ketones Negative Urine Occult Blood 250 H Urine Nitrite Negative Urine Bilirubin Negative Urine Urobilinogen Normal Ur Leukocyte Esterase 500 H Urine RBC > 100 SEEN Urine WBC >100 SEEN Ur Squamous Epith Cells 0-5 SEEN Amorphous Sediment 1+ URATE Urine Bacteria RARE Urine Mucus 0 SEEN Treatment and Re-Evaluation :: I have personally performed a face to face assessment of the patient and have reviewed the ANEL Note. I performed a substantive portion of the visit including all aspects of the following. My ku findings include: History: Patient presents with decreased urine output from his Pyle catheter. Patient states he emptied his Pyle catheter around 9 AM today. Patient states he has not had any output since that time. Patient admits to some pressure over his lower abdomen. Patient denies any fevers or chills. Patient denies any nausea or vomiting. Patient has an appointment with his urologist tomorrow for further evaluation. Patient finished a course of Bactrim this morning. Exam: Vital signs are stable. Patient is afebrile. Patient is in no acute distress. Oral mucosa is pink and moist. Neck is supple. Trachea is midline. There is no JVD. Heart was regular rate and rhythm. Lungs are clear and equal bilaterally. Abdomen is soft. Bowel sounds are normal. There is no tenderness. There is no guarding noted. Cranial nerves II through XII are intact. There are no focal motor or sensory deficits. Medical Decision Making: The Pyle catheter was irrigated. There was a large return of cloudy urine returned. Patient felt better after irrigation. Urinalysis will be obtained to assess for urinary tract infection. Urinalysis showed leukocyte esterase of 500 with greater than 100 red blood cells and greater than 100 white blood cells. There is rare urine bacteria. Occult blood was 250. There is glucosuria of 1000. Urine culture will be ordered. Patient will be instructed to follow-up with his urologist tomorrow as scheduled. Patient and family understand and are agreeable with the plan. All questions were answered. Discharge Plan Triage Chief Complaint: Pyle C/O ED Midlevel Provider: Amanda Lee ED Provider: Greg Kim Dx/Rx/DC Orders Clinical Impression: Urinary retention, Pyle catheter problem Instructions: ED Pyle Catheter, Care Prescriptions: No Action atorvastatin 10 MG tablet 40 mg PO QHS glimepiride 4 MG tablet 4 mg PO DAILY metoprolol succinate 100 mg tablet extended release 24 hr 100 mg PO DAILY tamsulosin 0.4 mg Capsule 0.8 mg PO QHS pantoprazole 40 mg tablet,delayed release (DR/EC) 40 mg PO DAILY metformin 1,000 mg Tablet 1,000 mg PO BID lisinopril 5 mg tablet 5 mg PO DAILY Jardiance 25 mg tablet 25 mg PO DAILY cholecalciferol (vitamin D3) 125 mcg (5,000 unit) capsule 125 mcg PO DAILY Label Comments: TAKE 1 CAPSULE BY MOUTH EVERY DAY fluconazole 100 mg Tablet 200 mg PO DAILY 13 Days Qty: 26 0RF Rx Instructions: Start first oral dose tomorrow 12/05/2022 sulfamethoxazole-trimethoprim [Bactrim DS] 800-160 mg tablet 1 tab PO BID 7 Days Qty: 14 0RF Primary Care Provider: Del Fox Referrals: Del Fox DO [Primary Care Provider] - Activity Restrictions/Additional Instructions: Please follow-up with Dr. Hankins at your appointment tomorrow. Disposition Disposition: Home, Self Care Discharge Date/Time: 12/17/22 19:45
[2022-12-17 18:27] LABS: Color, Urine Yellow (Yellow); Glucose, Dipstick 1000 mg/dl (Normal); Ketone-Dipstick Negative (Negative); Leukocyte Esterase-Dipstick 500 /ul (Negative); Mucous, Urine 0 SEEN /hpf (<or=2+); Nitrite-Dipstick Negative (Negative); Occult Blood-Urine 250 /ul (Negative); Protein-Dipstick 100 mg/dl (Negative); Urine Bilirubin Dipstick Negative (Negative); Urine Clarity Cloudy (Clear); Urine Urobilinogen Normal (Normal)
[2022-12-17 19:07] LABS: Bacteria RARE /hpf (None Seen); Red Blood Cells-Urine > 100 SEEN /hpf (0-5); Squamous Epithelial Cells - UA 0-5 SEEN /hpf (0-5); White Blood Cells >100 SEEN /hpf (0-5)
[2022-12-17 19:08] LABS: Amorphous Sediment 1+ URATE
[2022-12-17 19:30] VITALS: PULSE 64; RESP 18; O2SAT 97
== END 2022-12-17 19:45 | disposition home or self-care (01) ==
PROVIDERS: Physician Assistant; Emergency Provider Emergency Medicine; PCP Student in an Organized Health Care Education/Training Program; Visit Provider Emergency Medicine
DX: T83.89XA Other specified complication of genitourinary prosthetic devices, implants and grafts, initial encounter (principal); E11.9 Type 2 diabetes mellitus without complications; R33.9 Retention of urine, unspecified; Z79.84 Long term (current) use of oral hypoglycemic drugs; Z79.899 Other long term (current) drug therapy; Y84.6 Urinary catheterization as the cause of abnormal reaction of the patient, or of later complication, without mention of misadventure at the time of the procedure
CPT/HCPCS: 99282; 81001; 87086; A4216

== ENCOUNTER 2022-12-18 18:02 | Inpatient (IN) | payer MEDICARE, OTHER, SELFPAY ==
[2022-12-18 18:03] VITALS: BP 109/60; PULSE 76; RESP 18; TEMP 36.4; O2SAT 100; BMI 27.9
[2022-12-18 19:34] LABS: Absolute Lymphocyte Count 1.54 X10^3/uL (0.83-4.51); Absolute Neutrophil Count 5.2 X10^3/uL (2.0-7.7); Basophil# 0.05 X10^3/uL; Basophil% 0.7 % (0-1); Eosinophil# 0.16 X10^3/uL; Eosinophils% 2.1 % (0-5); Hemoglobin 11.7 g/dL (13.0-16.5); Lymphocyte # 1.54 X10^3/ul (0.83-4.51); Lymphocyte % 20.5 % (19-41); Mean Corp Hgb Conc 32.5 g/dL (32-36); Mean Corpuscular Hgb 29.7 pg (27.0-32.0); Mean Corpuscular Volume 91.4 fL (80-94); Mean Platelet Vol. 9.9 fl (6.2-12.0); Monocyte# 0.57 X10^3/uL; Monocyte% 7.6 % (0-10); NRBC Flagged by Analyzer 0 % (0-5); Neutrophil # 5.19 X10^3/uL (2.7-7.7); Neutrophil % 68.8 % (47-70); Platelet Count 279 K/mm3 (150-450); RBC Distribution Width CV 13.7 % (11.6-14.6); RBC Distribution Width SD 46.5 fl (35.1-43.9); Red Blood Count 3.94 M/mm3 (4.6-6.2); White Blood Count 7.5 K/mm3 (4.4-11.0)
[2022-12-18 19:44] LABS: Bacteria 0 SEEN /hpf (None Seen); Mucous, Urine 0 SEEN /hpf (<or=2+); Red Blood Cells-Urine 0 SEEN /hpf (0-5); Squamous Epithelial Cells - UA 0 SEEN /hpf (0-5)
[2022-12-18 19:47] LABS: Color, Urine Yellow (Yellow); Glucose, Dipstick 250 mg/dl (Normal); Ketone-Dipstick Negative (Negative); Leukocyte Esterase-Dipstick 500 /ul (Negative); Nitrite-Dipstick Negative (Negative); Occult Blood-Urine 250 /ul (Negative); Protein-Dipstick 100 mg/dl (Negative); Specific Gravity, Urine 1.015 (1.002-1.030); Urine Bilirubin Dipstick Negative (Negative); Urine Clarity Turbid (Clear); Urine Urobilinogen Normal (Normal)
--- NOTE | 2022-12-18 19:57 | EDS_ITS ---
HPI History of Present Illness Chief Complaint: Complaint Narrative Narrative: 82-year-old male presenting with urinary retention. He has a history of this. Dr. Hankins took his Pyle catheter out today. This was about 1400. Patient has been able to void since then. He states he does have some suprapubic pressure that is built up. He denies nausea or vomiting. Denies fever chills. Denies GI complaints. [facility] Medical History Bladder cancer DM II (diabetes mellitus, type II), controlled Home Medications atorvastatin 10 mg tablet 40 mg PO QHS Check with primary doctor 12/30/14 [History Last Taken 12/01/22] glimepiride 4 mg tablet 4 mg PO DAILY Check with primary doctor 12/30/14 [Hist ory Last Taken 12/02/22] cholecalciferol (vitamin D3) 125 mcg (5,000 unit) capsule 125 mcg PO DAILY Check with primary doctor 12/02/22 [History Last Taken 12/02/22] empagliflozin 25 mg tablet (Jardiance) 25 mg PO DAILY Check with primary doctor 12/02/22 [History Last Taken Unknown] lisinopril 5 mg tablet 5 mg PO DAILY Check with primary doctor 12/02/22 [History Last Taken 12/02/22] metformin 1,000 mg tablet 1,000 mg PO BID Check with primary doctor 12/02/22 [History Last Taken Unknown] metoprolol succinate 100 mg tablet,extended release 24 hr 100 mg PO DAILY Check with primary doctor 12/02/22 [History Last Taken 12/01/22] pantoprazole 40 mg tablet,delayed release 40 mg PO DAILY Check with primary doctor 12/02/22 [History Last Taken 12/02/22] tamsulosin 0.4 mg capsule 0.8 mg PO QHS Check with primary doctor 12/02/22 [History Last Taken 12/02/22] fluconazole 100 mg tablet 200 mg PO DAILY 13 days #26 tabs 12/04/22 [Rx Last Taken Unknown] sulfamethoxazole 800 mg-trimethoprim 160 mg tablet (Bactrim DS) 1 tab PO BID 7 days #14 tabs 12/10/22 [Rx Last Taken Unknown] Allergy/AdvReac Type Severity Reaction Status Date / Time No Known Allergies Allergy Verified 12/18/22 18:06 Surgical History H/O transurethral resection of bladder tumor (TURBT) Hx of CABG S/P ureteral stent placement Social History household members: spouse housing: house Smoking Status: Never smoker alcohol intake: never substance use type: does not use ROS ROS ED Constitutional Constitutional ED: Denies chills, fever(s) or sweats Eyes Eyes: Denies blurry vision or change in vision ENT ENT ED: Denies ear pain or sore throat Cardiovascular Cardiovascular: Denies chest pain, palpitations or racing heartbeat Respiratory/Chest Respiratory/Chest: Denies cough, dyspnea or sputum Gastrointestinal Gastrointestinal: Reports abdominal pain; Denies constipation, diarrhea, nausea or vomiting Genitourinary Genitourinary ED: Reports other Details: Urinary retention ; Denies dysuria, hematuria or urinary frequency Musculoskeletal Musculoskeletal: Denies arthralgias, myalgias or neck pain Integumentary Denies abscess, Abrasions or rash Neurologic Neurologic: Denies headache(s), paresthesias or weakness Psychiatric Psychiatric: Denies anxiety, depression, suicidal ideation or suicidal thoughts Endocrine Endocrinology: Denies polydipsia or polyuria EXAM Physical Exam Const Vital Signs: 12/18/22 18:03 Temperature 97.6 F L Temperature Source Temporal Pulse Rate 76 Respiratory Rate 18 Blood Pressure 109/60 Blood Pressure Mean 76 Pulse Ox 100 Oxygen Delivery Method Room Air Positive well nourished General Appearance ED: NAD HEENT Reports moist mucous membranes Eyes PERRL and EOMs intact bilaterally Cardio regular rate and regular rhythm GI Palpation: tender suprapubic no CVA tenderness Neuro oriented x3 and CN's II-XII intact bilaterally Motor Exam: strength 5/5 throughout Psych mental status grossly normal MDM MDM MDM Narrative Medical decision making narrative: 82-year-old male with history of urinary retention presenting with urinary tension. His Pyle catheter was taken out today and has not been able to void. He has some mild to but is not in severe pain. CBC to assess white blood cell count, hemoglobin, platelets, differential. BMP to assess renal function, electrolytes, glucose. Urinalysis to assess for UTI. Patient states he was recently on Bactrim and told he has a fungal UTI and is currently on fluconazole which was started by urology. He is also on Flomax. CBC shows a normal white blood cell count of 7.5. Hemoglobin 11.7. Platelets normal at 279. Creatinine today is significantly elevated over baseline at 5.27. BUN is 107. Glucose is 200 without anion gap. An EKG was obtained due to the hyperkalemia and this did not show any acute changes. Patient given calcium gluconate, dextrose, insulin, sodium bicarb. CT of the abdomen/pelvis without contrast was obtained and shows decreased right hydronephrosis with persistent gas in the renal collecting system discussed with Dr. Hankins. He recommended admission. I will send another urine culture. He did believe that the patient had a fungal UTI and did not recommend any antibiotics. All findings were discussed with the patient. Impression: 1. Fungal UTI 2. Acute kidney injury 3. Hyperkalemia 4. Hyponatremia Lab Data Attestation: I reviewed the patient's lab results. Labs: Laboratory Results - last 24 hr 12/18/22 12/18/22 12/18/22 19:25 19:25 19:35 WBC 7.5 RBC 3.94 L Hgb 11.7 L Hct 36.0 L MCV 91.4 MCH 29.7 MCHC 32.5 RDW Std Deviation 46.5 H RDW Coeff of Danielle 13.7 Plt Count 279 MPV 9.9 Immature Gran % (Auto) 0.300 Neut % (Auto) 68.8 Lymph % (Auto) 20.5 [place] % (Auto) 7.6 Eos % (Auto) 2.1 Baso % (Auto) 0.7 Absolute Neuts (auto) 5.2 Absolute Lymphs (auto) 1.54 Nucleated RBC % 0 Sodium 130 L Potassium 7.0 H* Chloride 101 Carbon Dioxide 17.0 L Anion Gap 12 BUN 107 H* Creatinine 5.27 H Estim Creat Clear Calc 10.09 Est GFR (MDRD) Af Amer 13 L Est GFR (MDRD) Non-Af 11 L BUN/Creatinine Ratio 20.3 H Glucose 200 H Calcium 9.9 Urine Color Yellow Urine Clarity Turbid Urine pH 6.0 Ur Specific [place] 1.015 Urine Protein 100 H Urine Glucose (UA) 250 H Urine Ketones Negative Urine Occult Blood 250 H Urine Nitrite Negative Urine Bilirubin Negative Urine Urobilinogen Normal Ur Leukocyte Esterase 500 H Urine RBC 0 SEEN Urine WBC >100 SEEN Ur Squamous Epith Cells 0 SEEN Urine Bacteria 0 SEEN Urine Mucus 0 SEEN Radiography Diagnostic Testing: Clinical Impression(s) from Imaging Studies Abdomen/Pelvis CT 12/18/22 20:00 IMPRESSION: Decreasing right hydronephrosis with right ureteral stent in place. Persistent gas in the right renal collecting system and urinary bladder, likely related to recent intervention but pyelonephrosis should also be considered. Circumferential bladder wall thickening with partial distention, correlate to exclude UTI. Electronically Signed: Lawson Munson MD at 20:49 EDT , Discharge Plan Triage Chief Complaint: Complaint ED Provider: Oc Mckeon Dx/Rx/DC Orders Prescriptions: No Action atorvastatin 10 MG tablet 40 mg PO QHS glimepiride 4 MG tablet 4 mg PO DAILY metoprolol succinate 100 mg tablet extended release 24 hr 100 mg PO DAILY tamsulosin 0.4 mg Capsule 0.8 mg PO QHS pantoprazole 40 mg tablet,delayed release (DR/EC) 40 mg PO DAILY metformin 1,000 mg Tablet 1,000 mg PO BID lisinopril 5 mg tablet 5 mg PO DAILY Jardiance 25 mg tablet 25 mg PO DAILY cholecalciferol (vitamin D3) 125 mcg (5,000 unit) capsule 125 mcg PO DAILY Label Comments: TAKE 1 CAPSULE BY MOUTH EVERY DAY fluconazole 100 mg Tablet 200 mg PO DAILY 13 Days Qty: 26 0RF Rx Instructions: Start first oral dose tomorrow 12/05/2022 sulfamethoxazole-trimethoprim [Bactrim DS] 800-160 mg tablet 1 tab PO BID 7 Days Qty: 14 0RF Primary Care Provider: Del Fox Referrals: Del Fox DO [Primary Care Provider] -
[2022-12-18 19:58] LABS: Anion Gap 12 (5-15); BUN 107 mg/dL (7-18); BUN/Creat Ratio 20.3 RATIO (10-20); Calcium,Total 9.9 mg/dL (8.5-10.1); Chloride 101 mmol/L (98-107); Creatinine, Serum 5.27 mg/dL (0.70-1.30); EST Glomerular Filtration Rate 11 mL/min (>60); Est Glom Filt Rate - Afr Amer 13 mL/min (>60); Estimated Creatinine Clearance 10.09 ml/min; Glucose 200 mg/dL (74-106); Sodium Level 130 mmol/L (136-145)
[2022-12-18 20:00] LABS: White Blood Cells >100 SEEN /hpf (0-5)
--- NOTE | 2022-12-18 20:00 | CT_ITS ---
INDICATION: Urinary retention, history of bladder cancer with tumor resection 11/17/2022 EXAMINATION: CT ABDOMEN AND PELVIS WITHOUT CONTRAST - CT Abdomen And Pelvis W/O Contrast Injection TECHNIQUE: Helically acquired images were obtained of the abdomen and pelvis without oral or IV contrast. A radiation dose optimization technique was used for this scan. IV Contrast dosage and agent: None. Oral contrast: None. COMPARISON: 12/02/2022 FINDINGS: LOWER CHEST: Lung bases are clear. No cardiomegaly or pericardial effusion. LIVER: Homogeneous. No focal mass. GALLBLADDER AND BILIARY TREE: Calcified gallstone. No gallbladder distension or wall edema. No intra- or extrahepatic biliary ductal dilation. PANCREAS: No focal cystic or solid mass. SPLEEN: Normal size without focal cystic or solid mass. ADRENAL GLANDS: No nodules. KIDNEYS AND URETERS: Stable right double-J ureteral stent in place with decreasing right hydronephrosis. Persistent gas in the right renal collecting system. Left kidney unremarkable. PERITONEUM: No ascites or free air. BOWEL: Normal appendix. No stomach or bowel distension. No focal inflammatory change. LYMPH NODES: No enlarged mesenteric or retroperitoneal lymph nodes. VESSELS: Aorta is non-dilated. URINARY BLADDER: Drained by Pyle catheter. Circumferential wall thickening. Small amount of intraluminal air. REPRODUCTIVE ORGANS: No pelvic masses. BONES: No acute or aggressive abnormality. CT/Abdomen/Pelvis without Cont IMPRESSION: Decreasing right hydronephrosis with right ureteral stent in place. Persistent gas in the right renal collecting system and urinary bladder, likely related to recent intervention but pyelonephrosis should also be considered. Circumferential bladder wall thickening with partial distention, correlate to exclude UTI. Electronically Signed: Lawson Munson MD at 20:49 EDT ,
[2022-12-18 20:05] VITALS: BP 114/61; PULSE 63; RESP 16; O2SAT 98
--- NOTE | 2022-12-18 20:13 | EKG12_ITS ---
Test Reason : Blood Pressure : / mmHG Vent. Rate : 072 BPM Atrial Rate : 072 BPM P-R Int : 210 ms QRS Dur : 100 ms QT Int : 398 ms P-R-T Axes : -04 035 -17 degrees QTc Int : 435 ms Sinus rhythm with 1st degree A-V block Nonspecific T wave abnormality Abnormal ECG Confirmed by STEVE ARMSTRONG, YUMIKO ([id number]), publishing editor DESIRAE DENG ([id number]) on 12/20/2022 11:22:07 AM Referred By: Confirmed By:YUMIKO WILSON MD
[2022-12-18] MEDS: Calcium Gluconate IV 3 GM in Syringe 1 EACH IV (21:08)
[2022-12-18] MEDS: Dextrose 50%-Water 25 GM/50 ML DISP.SYRIN IV (21:11)
[2022-12-18] MEDS: Insulin Lispro 10 UNIT in Syringe 0 ML 6 UNIT IV (21:12)
[2022-12-18] MEDS: Sodium Bicarbonate 8.4% 50 ML Syringe 50 MEQ IV (21:16)
[2022-12-18 21:21] VITALS: BP 117/58; PULSE 68; RESP 14; TEMP 36.8; O2SAT 97
[2022-12-18 22:09] VITALS: BP 123/49; PULSE 75; RESP 18; TEMP 36.9; O2SAT 95
[2022-12-18 22:16] VITALS: BMI 28.0
[2022-12-18] MEDS: Sodium Polystyrene Sulfonate 15 GM/60 ML UDC 30 GM PO (22:57)
[2022-12-18 23:23] VITALS: BP 114/59; PULSE 72; RESP 18; TEMP 36.7; O2SAT 97
--- NOTE | 2022-12-18 23:29 | CON.PCM.HO_ITS ---
Assessment & Plan Assessment/Plan (1) History of bladder cancer: (2) Pyle catheter problem: (3) Hyperkalemia: PLAN: Plan 1 hyperkalemia?patient has received insulin and glucose in the emergency room and a dose of Kayexalate. Will repeat BMP in the morning 2. Pyle catheter problem/history of bladder cancer defer to Dr. Hankins HPI Consult Data Date of Consult: 12/18/22 HPI Narrative Reason for Consultation: Hyperkalemia HPI Narrative: MIREYA LIM, is a 82 M who presents to the emergency room with chief complaint of obstructive uropathy. Patient has a history of bladder cancer and is status post surgery and had Pyle catheter removed earlier today. Patient went home and was unable to void. Patient came into the emergency room and was found to be hyperkalemic as well with a potassium of 7. Patient denies any chest pain, shortness of breath, fevers or chills he does have some discomfort over his bladder area. Hospitalist team has been consulted to manage his hyperkalemia. Patient did receive insulin and glucose in the emergency room and was given Kayexalate. BMP will repeat in the morning [facility] Medical History Bladder cancer DM II (diabetes mellitus, type II), controlled Home Medications atorvastatin 10 mg tablet 40 mg PO QHS Check with primary doctor 12/30/14 [History Last Taken 12/17/22 21:00] glimepiride 4 mg tablet 4 mg PO DAILY Check with primary doctor 12/30/14 [History Last Taken 12/18/22 09:00] cholecalciferol (vitamin D3) 125 mcg (5,000 unit) capsule 125 mcg PO DAILY Check with primary doctor 12/02/22 [History Last Taken 12/18/22 09:00] empagliflozin 25 mg tablet (Jardiance) 25 mg PO DAILY Check with primary doctor 12/02/22 [History Last Taken 12/18/22 09:00] lisinopril 5 mg tablet 5 mg PO DAILY Check with primary doctor 12/02/22 [History Last Taken 12/16/22 21:00] metformin 1,000 mg tablet 1,000 mg PO BID Check with primary doctor 12/02/22 [History Last Taken 12/18/22 09:00] metoprolol succinate 100 mg tablet,extended release 24 hr 100 mg PO DAILY Check with primary doctor 12/02/22 [History Last Taken 12/18/22 09:00] pantoprazole 40 mg tablet,delayed release 40 mg PO DAILY Check with primary doctor 12/02/22 [History Last Taken 12/17/22 21:00] tamsulosin 0.4 mg capsule 0.8 mg PO DAILY Check with primary doctor 12/02/22 [History Last Taken 12/18/22 09:30] aspirin 81 mg capsule 81 mg PO DAILY Cardiac 12/18/22 [History Last Taken 12/18/22 09:00] Allergy/AdvReac Type Severity Reaction Status Date / Time No Known Allergies Allergy Verified 12/18/22 18:06 Surgical History H/O transurethral resection of bladder tumor (TURBT) Hx of CABG S/P ureteral stent placement Social History household members: spouse housing: house Smoking Status: Never smoker alcohol intake: never substance use type: does not use ROS Constitutional Constitutional: Denies change in weight, chills or fever(s) Cardiovascular Cardiovascular: Denies chest pain Respiratory/Chest Respiratory/Chest: Denies cough Gastrointestinal Gastrointestinal: Reports abdominal pain Genitourinary Genitourinary: Reports difficulty urinating Psychiatric Psychiatric: Reports anxiety Physical Exam Const oriented x3 General Appearance: cooperative Neck no lymphadenopathy Resp normal respiratory effort Cardio regular rate, regular rhythm, S1 normal heart sound and S2 normal heart sound GI normal to inspection, nondistended, normoactive bowel sounds Neuro oriented x3 Sensorium / Orientation: awake, alert, oriented to person, oriented to place and oriented to time Psych affect normal Lab / Micro Data Result Diagrams: 12/18/22 19:25 12/18/22 19:25 Labs: Laboratory Results - last 24 hr 12/18/22 19:25: WBC 7.5, RBC 3.94 L, Hgb 11.7 L, Hct 36.0 L, MCV 91.4, MCH 29.7, MCHC 32.5, RDW Std Deviation 46.5 H, RDW Coeff of Danielle 13.7, Plt Count 279, MPV 9.9, Immature Gran % (Auto) 0.300, Neut % (Auto) 68.8, Lymph % (Auto) 20.5, [place] % (Auto) 7.6, Eos % (Auto) 2.1, Baso % (Auto) 0.7, Absolute Neuts (auto) 5.2, Absolute Lymphs (auto) 1.54, Nucleated RBC % 0 12/18/22 19:25: Sodium 130 L, Potassium 7.0 H*, Chloride 101, Carbon Dioxide 17.0 L, Anion Gap 12, BUN 107 H*, Creatinine 5.27 H, Estim Creat Clear Calc 10.09, Est GFR (MDRD) Af Amer 13 L, Est GFR (MDRD) Non-Af 11 L, BUN/Creatinine Ratio 20.3 H, Glucose 200 H, Calcium 9.9 12/18/22 19:35: Urine Color Yellow, Urine Clarity Turbid, Urine pH 6.0, Ur Specific [place] 1.015, Urine Protein 100 H, Urine Glucose (UA) 250 H, Urine Ketones Negative, Urine Occult Blood 250 H, Urine Nitrite Negative, Urine Bilirubin Negative, Urine Urobilinogen Normal, Ur Leukocyte Esterase 500 H, Urine RBC 0 SEEN, Urine WBC >100 SEEN, Ur Squamous Epith Cells 0 SEEN, Urine Bacteria 0 SEEN, Urine Mucus 0 SEEN Radiology Impression Abdomen/Pelvis CT 12/18/22 20:00 IMPRESSION: Decreasing right hydronephrosis with right ureteral stent in place. Persistent gas in the right renal collecting system and urinary bladder, likely related to recent intervention but pyelonephrosis should also be considered. Circumferential bladder wall thickening with partial distention, correlate to exclude UTI. Electronically Signed: Lawson Munson MD at 20:49 EDT , Charges/Coding Visit Charges Inpatient E&M: 80389 Init Hosp L2
[2022-12-18] MEDS: Acetaminophen 500 MG Tablet PO (23:40)
[2022-12-18] MEDS: 0.9% Normal Saline 1,000 ML 100 ML IV (23:40)
[2022-12-18] MEDS: 0.9% Saline Lock 10 ML Syringe IV (23:40)
[2022-12-18] MEDS: Atorvastatin Calcium 40 MG Tablet PO (23:41)
[2022-12-19 02:35] VITALS: BP 104/43; PULSE 73; RESP 18; TEMP 36.5; O2SAT 95
[2022-12-19 05:02] VITALS: BP 126/60; PULSE 74; RESP 18; TEMP 36.4; O2SAT 98
[2022-12-19 05:25] LABS: Absolute Lymphocyte Count 2.56 X10^3/uL (0.83-4.51); Absolute Neutrophil Count 4.8 X10^3/uL (2.0-7.7); Basophil# 0.04 X10^3/uL; Basophil% 0.5 % (0-1); Eosinophil# 0.21 X10^3/uL; Eosinophils% 2.5 % (0-5); Hematocrit 36.3 % (40-54); Hemoglobin 12.1 g/dL (13.0-16.5); Lymphocyte # 2.56 X10^3/ul (0.83-4.51); Lymphocyte % 30.6 % (19-41); Mean Corp Hgb Conc 33.3 g/dL (32-36); Mean Corpuscular Hgb 30.2 pg (27.0-32.0); Mean Corpuscular Volume 90.5 fL (80-94); Mean Platelet Vol. 9.4 fl (6.2-12.0); Monocyte# 0.72 X10^3/uL; Monocyte% 8.6 % (0-10); NRBC Flagged by Analyzer 0 % (0-5); Neutrophil # 4.81 X10^3/uL (2.7-7.7); Neutrophil % 57.4 % (47-70); Platelet Count 284 K/mm3 (150-450); RBC Distribution Width CV 13.8 % (11.6-14.6); RBC Distribution Width SD 45.7 fl (35.1-43.9); Red Blood Count 4.01 M/mm3 (4.6-6.2); White Blood Count 8.4 K/mm3 (4.4-11.0)
[2022-12-19 05:58] LABS: Anion Gap 10 (5-15); BUN 103 mg/dL (7-18); BUN/Creat Ratio 20.2 RATIO (10-20); Calcium,Total 10.4 mg/dL (8.5-10.1); Chloride 106 mmol/L (98-107); Creatinine, Serum 5.11 mg/dL (0.70-1.30); EST Glomerular Filtration Rate 12 mL/min (>60); Est Glom Filt Rate - Afr Amer 14 mL/min (>60); Estimated Creatinine Clearance 10.41 ml/min; Glucose 109 mg/dL (74-106); Potassium 5.6 mmol/L (3.5-5.1); Sodium Level 136 mmol/L (136-145)
--- NOTE | 2022-12-19 07:08 | PCM.HP.STD ---
HPI - General General Date of Admission: 12/18/22 Chief Complaint: Urinary tract infection and acute kidney injury HPI Narrative MIREYA LIM, is a 82 M who had bladder cancer and he underwent a resection of bladder cancer at [facility] a few weeks ago was complicated case because the tumor was involved in the right side of the bladder along the wall at the resected completely there was a small perforation during the case and also the ureter was involved so I did put a stent in on the right side. At that time the patient refused to have a catheter put in he appeared to be voiding okay so he was sent home without a catheter. He then presented to [facility] with worsening problems acute renal failure and incomplete bladder emptying so a catheter was placed and at the time the patient was discharged fairly quickly after that admission within 24 hours since he was improving so rapidly, but then I saw him in the office yesterday family reports he has been not eating not been doing well has very thick purulent urine coming from the Pyle catheter. Patient was having a lot of pain with a catheter he insisted to have it removed so we did a voiding trial in the office he was able to urinate but then presented to the emergency room and retention of urine blood work was done he was found to have an elevated creatinine of 5.2 BUN of 107 and a potassium of 7.0 so he was admitted. Consulted medical service and also consulted infectious disease. His last culture grew out yeast Corina infection which I suspect he still has. CT scan was done demonstrated to still some air within the collecting system and a perforation in the posterior part of the bladder is improving the urinoma that was there present before is almost gone just a small amount left I think this is good and resolved spontaneously on its own I do not think any surgical intervention is necessary however the patient has severe acute kidney injury dehydration failure to thrive and poor nutrition so I do not have any plan to discharge the patient anytime soon until his creatinine resolves completely and his strength improves anticipate using any discharged to shelter facility for strengthening improving for now we will keep the Pyle catheter in place we will keep the stent in place I consulted hospitalist service to his cystis care and I was consulted infectious disease for management of his infection. [facility] Medical History Bladder cancer DM II (diabetes mellitus, type II), controlled Home Medications atorvastatin 10 mg tablet 40 mg PO QHS Check with primary doctor 12/30/14 [History Last Taken 12/17/22 21:00] glimepiride 4 mg tablet 4 mg PO DAILY Check with primary doctor 12/30/14 [History Last Taken 12/18/22 09:00] cholecalciferol (vitamin D3) 125 mcg (5,000 unit) capsule 125 mcg PO DAILY Check with primary doctor 12/02/22 [History Last Taken 12/18/22 09:00] empagliflozin 25 mg tablet (Jardiance) 25 mg PO DAILY Check with primary doctor 12/02/22 [History Last Taken 12/18/22 09:00] lisinopril 5 mg tablet 5 mg PO DAILY Check with primary doctor 12/02/22 [History Last Taken 12/16/22 21:00] metformin 1,000 mg tablet 1,000 mg PO BID Check with primary doctor 12/02/22 [History Last Taken 12/18/22 09:00] metoprolol succinate 100 mg tablet,extended release 24 hr 100 mg PO DAILY Check with primary doctor 12/02/22 [History Last Taken 12/18/22 09:00] pantoprazole 40 mg tablet,delayed release 40 mg PO DAILY Check with primary doctor 12/02/22 [History Last Taken 12/17/22 21:00] tamsulosin 0.4 mg capsule 0.8 mg PO DAILY Check with primary doctor 12/02/22 [History Last Taken 12/18/22 09:30] aspirin 81 mg capsule 81 mg PO DAILY Cardiac 12/18/22 [History Last Taken 12/18/22 09:00] Allergy/AdvReac Type Severity Reaction Status Date / Time No Known Allergies Allergy Verified 12/18/22 18:06 Surgical History H/O transurethral resection of bladder tumor (TURBT) Hx of CABG S/P ureteral stent placement Social History household members: spouse housing: house Smoking Status: Never smoker alcohol intake: never substance use type: does not use ROS Constitutional Constitutional: Denies chills, fever(s) or malaise Eyes Eyes: Denies blurry vision or change in vision ENT HEENT: Reports none Cardiovascular Cardiovascular: Denies chest pain or palpitations Respiratory/Chest Respiratory/Chest: Denies cough or shortness of breath with exertion Gastrointestinal Gastrointestinal: Denies abdominal pain, constipation or diarrhea Musculoskeletal Musculoskeletal: Denies back pain, joint stiffness or joint swelling Integumentary Integumentary: Denies dry skin, jaundice, lesions or rash Neurologic Neurologic: Denies confusion, syncope or weakness Psychiatric Psychiatric: Reports none; Denies anxiety or depression Endocrine Endocrinology: Denies excessive sweating, fatigue or flushing Hematologic/Lymphatic Hematologic/Lymphatic: Denies anemia, easy bleeding or easy bruising Vital Signs Vital Signs Vital Signs: 12/18/22 18:03 12/18/22 21:21 12/18/22 20:05 Temperature 97.6 F L 98.2 F Temperature Source Temporal Temporal Pulse Rate 76 68 63 Respiratory Rate 18 14 16 Respiratory Effort Respiratory Depth Respiratory Pattern Blood Pressure 109/60 117/58 L 114/61 Blood Pressure Mean 76 77 78 Blood Pressure Source Blood Pressure Position Blood Pressure Location Pulse Ox 100 97 98 Oxygen Delivery Method Room Air Room Air Room Air 12/18/22 22:09 12/18/22 23:23 12/18/22 22:06 Temperature 98.4 F 98.1 F Temperature Source Oral Oral Pulse Rate 75 72 Respiratory Rate 18 18 Respiratory Effort Normal Non-Labored Respiratory Depth Normal Respiratory Pattern Normal Blood Pressure 123/49 H 114/59 L Blood Pressure Mean 73 77 Blood Pressure Source Monitor Monitor Blood Pressure Position Semi-Fowlers Semi-Fowlers Blood Pressure Location Left Arm Left Arm Pulse Ox 95 97 Oxygen Delivery Method Room Air Room Air Room Air 12/19/22 02:35 12/19/22 05:02 Temperature 97.7 F L 97.5 F L Temperature Source Oral Oral Pulse Rate 73 74 Respiratory Rate 18 18 Respiratory Effort Respiratory Depth Respiratory Pattern Blood Pressure 104/43 L 126/60 H Blood Pressure Mean 63 82 Blood Pressure Source Monitor Monitor Blood Pressure Position Semi-Fowlers Semi-Fowlers Blood Pressure Location Right Arm Left Arm Pulse Ox 95 98 Oxygen Delivery Method Room Air Room Air Weight Weight: 84 kg Body Mass Index (BMI) 28.0 Physical Exam Const alert and oriented x3 General Appearance: cooperative HEENT normocephalic, head/scalp atraumatic, EAC's normal and TM's normal bilaterally Eyes PERRL and EOMs intact bilaterally Pupil: sluggish Neck no lymphadenopathy, supple and no JVD General: trachea midline Lymph Lymphatic: no lymphadenopathy noted, lymphedema and lymphadenopathy Resp normal respiratory effort, normal air movement and clear to auscultation bilaterally Cardio regular rate, regular rhythm and peripheral pulses 2+ throughout GI soft to palpation, non-tender and non-distended Extremity normal capillary refill and no clubbing, cyanosis or edema General Extremity: no tenderness to palpation of joints or extremities Skin no rashes or lesions noted General Skin Exam: turgor normal Lesions: no lesions Rashes: no rashes Neuro CN's II-XII intact bilaterally Speech: speech normal Motor Exam: strength 5/5 throughout; Negative for general weakness Psych thought process normal, cooperative and affect normal Appearance: appropriate Results Lab / Micro Data Result Diagrams: 12/19/22 05:15 12/19/22 05:15 Labs: Laboratory Results - last 24 hr 12/18/22 19:25: WBC 7.5, RBC 3.94 L, Hgb 11.7 L, Hct 36.0 L, MCV 91.4, MCH 29.7, MCHC 32.5, RDW Std Deviation 46.5 H, RDW Coeff of Danielle 13.7, Plt Count 279, MPV 9.9, Immature Gran % (Auto) 0.300, Neut % (Auto) 68.8, Lymph % (Auto) 20.5, [place] % (Auto) 7.6, Eos % (Auto) 2.1, Baso % (Auto) 0.7, Absolute Neuts (auto) 5.2, Absolute Lymphs (auto) 1.54, Nucleated RBC % 0 12/18/22 19:25: Sodium 130 L, Potassium 7.0 H*, Chloride 101, Carbon Dioxide 17.0 L, Anion Gap 12, BUN 107 H*, Creatinine 5.27 H, Estim Creat Clear Calc 10.09, Est GFR (MDRD) Af Amer 13 L, Est GFR (MDRD) Non-Af 11 L, BUN/Creatinine Ratio 20.3 H, Glucose 200 H, Calcium 9.9 12/18/22 19:35: Urine Color Yellow, Urine Clarity Turbid, Urine pH 6.0, Ur Specific [place] 1.015, Urine Protein 100 H, Urine Glucose (UA) 250 H, Urine Ketones Negative, Urine Occult Blood 250 H, Urine Nitrite Negative, Urine Bilirubin Negative, Urine Urobilinogen Normal, Ur Leukocyte Esterase 500 H, Urine RBC 0 SEEN, Urine WBC >100 SEEN, Ur Squamous Epith Cells 0 SEEN, Urine Bacteria 0 SEEN, Urine Mucus 0 SEEN 12/19/22 05:15: WBC 8.4, RBC 4.01 L, Hgb 12.1 L, Hct 36.3 L, MCV 90.5, MCH 30.2, MCHC 33.3, RDW Std Deviation 45.7 H, RDW Coeff of Danielle 13.8, Plt Count 284, MPV 9.4, Immature Gran % (Auto) 0.400, Neut % (Auto) 57.4, Lymph % (Auto) 30.6, Rains % (Auto) 8.6, Eos % (Auto) 2.5, Baso % (Auto) 0.5, Absolute Neuts (auto) 4.8, Absolute Lymphs (auto) 2.56, Nucleated RBC % 0 12/19/22 05:15: Sodium 136, Potassium 5.6 H, Chloride 106, Carbon Dioxide 20.0 L, Anion Gap 10, BUN 103 H*, Creatinine 5.11 H, Estim Creat Clear Calc 10.41, Est GFR (MDRD) Af Amer 14 L, Est GFR (MDRD) Non-Af 12 L, BUN/Creatinine Ratio 20.2 H, Glucose 109 H, Calcium 10.4 H Radiology Impression Abdomen/Pelvis CT 12/18/22 20:00 IMPRESSION: Decreasing right hydronephrosis with right ureteral stent in place. Persistent gas in the right renal collecting system and urinary bladder, likely related to recent intervention but pyelonephrosis should also be considered. Circumferential bladder wall thickening with partial distention, correlate to exclude UTI. Electronically Signed: Lawson Munson MD at 20:49 EDT , Assessment & Plan Assessment/Plan (1) Hyperkalemia: (2) Acute UTI: (3) Severe malnutrition: (4) Pyle catheter problem: (5) History of diabetes mellitus: (6) History of bladder cancer: (7) Acute renal failure: PLAN: 82-year-old male who has had a complication after bladder surgery for bladder cancer or with fairly bad infection with yeast infection this needs to be resolved prior for him going home I do not have any plans to discharge patient home anytime soon. We will continue with hydration to allow his creatinine resolve completely hopefully cuauhtemoc back to his baseline but he has suffered a pretty bad injury to his kidneys. He also has a significant infection we will continue with antibiotics and will await input from infectious disease and appreciate care and input from hospitalist service.
--- NOTE | 2022-12-19 08:12 | PCM.PN.HOSP ---
Reason for Visit Reason for Visit: Diagnoses Unspecified severe protein-calorie malnutrition (12/18/22) Hyperkalemia (12/18/22) Acute kidney failure, unspecified (12/18/22) Urinary tract infection, site not specified (12/18/22) Unspecified complication of genitourinary prosthetic device, implant and graft, initial encounter (12/18/22) Personal history of malignant neoplasm of bladder (12/18/22) Personal history of other endocrine, nutritional and metabolic disease (12/18/22) Subjective Subjective Valdovinos in place. Objective Data Objective Data Vital Signs: Vital Signs Temp Pulse Resp BP Pulse Ox O2 Del Method 36.4 C L 74 18 126/60 H 98 Room Air 12/19/22 05:02 12/19/22 05:02 12/19/22 05:02 12/19/22 05:02 12/19/22 05:02 12/19/22 05:02 Oxygen Delivery Method Room Air Weight: 84 kg Body Mass Index (BMI) 28.0 Intake & Output: Intake and Output for Last 24 Hours 12/17/22 12/18/22 12/19/22 23:59 23:59 23:59 Intake Total 30 / 30 Output Total 350 / 350 Balance 30 / 30 -350 / -350 Lab / Micro Data Result Diagrams: 12/19/22 05:15 12/19/22 05:15 Labs: Laboratory Results - last 24 hr 12/18/22 19:25: WBC 7.5, RBC 3.94 L, Hgb 11.7 L, Hct 36.0 L, MCV 91.4, MCH 29.7, MCHC 32.5, RDW Std Deviation 46.5 H, RDW Coeff of Danielle 13.7, Plt Count 279, MPV 9.9, Immature Gran % (Auto) 0.300, Neut % (Auto) 68.8, Lymph % (Auto) 20.5, [place] % (Auto) 7.6, Eos % (Auto) 2.1, Baso % (Auto) 0.7, Absolute Neuts (auto) 5.2, Absolute Lymphs (auto) 1.54, Nucleated RBC % 0 12/18/22 19:25: Sodium 130 L, Potassium 7.0 H*, Chloride 101, Carbon Dioxide 17.0 L, Anion Gap 12, BUN 107 H*, Creatinine 5.27 H, Estim Creat Clear Calc 10.09, Est GFR (MDRD) Af Amer 13 L, Est GFR (MDRD) Non-Af 11 L, BUN/Creatinine Ratio 20.3 H, Glucose 200 H, Calcium 9.9 12/18/22 19:35: Urine Color Yellow, Urine Clarity Turbid, Urine pH 6.0, Ur Specific [place] 1.015, Urine Protein 100 H, Urine Glucose (UA) 250 H, Urine Ketones Negative, Urine Occult Blood 250 H, Urine Nitrite Negative, Urine Bilirubin Negative, Urine Urobilinogen Normal, Ur Leukocyte Esterase 500 H, Urine RBC 0 SEEN, Urine WBC >100 SEEN, Ur Squamous Epith Cells 0 SEEN, Urine Bacteria 0 SEEN, Urine Mucus 0 SEEN 12/19/22 05:15: WBC 8.4, RBC 4.01 L, Hgb 12.1 L, Hct 36.3 L, MCV 90.5, MCH 30.2, MCHC 33.3, RDW Std Deviation 45.7 H, RDW Coeff of Danielle 13.8, Plt Count 284, MPV 9.4, Immature Gran % (Auto) 0.400, Neut % (Auto) 57.4, Lymph % (Auto) 30.6, [place] % (Auto) 8.6, Eos % (Auto) 2.5, Baso % (Auto) 0.5, Absolute Neuts (auto) 4.8, Absolute Lymphs (auto) 2.56, Nucleated RBC % 0 12/19/22 05:15: Sodium 136, Potassium 5.6 H, Chloride 106, Carbon Dioxide 20.0 L, Anion Gap 10, BUN 103 H*, Creatinine 5.11 H, Estim Creat Clear Calc 10.41, Est GFR (MDRD) Af Amer 14 L, Est GFR (MDRD) Non-Af 12 L, BUN/Creatinine Ratio 20.2 H, Glucose 109 H, Calcium 10.4 H Radiography Diagnostic Testing: Radiology Impression Abdomen/Pelvis CT 12/18/22 20:00 IMPRESSION: Decreasing right hydronephrosis with right ureteral stent in place. Persistent gas in the right renal collecting system and urinary bladder, likely related to recent intervention but pyelonephrosis should also be considered. Circumferential bladder wall thickening with partial distention, correlate to exclude UTI. Electronically Signed: Lawson Munson MD at 20:49 EDT , Physical Exam Const alert and no apparent distress HEENT head/scalp atraumatic and moist oral mucous membranes Resp normal respiratory effort, no retractions, no use of accessory muscles and clear to auscultation bilaterally Cardio regular rate, regular rhythm, S1 normal heart sound and S2 normal heart sound GI normal to inspection, nondistended, normoactive bowel sounds, soft to palpation, non-tender and non-distended GI Narrative: valdovinos in place with martha urine. Extremity normal to inspection Assessment & Plan Assessment/Plan (1) Hyperkalemia: PLAN: patient has received insulin and glucose in the emergency room and a dose of Kayexalate. Admission k of 7. Due to AKBAR and metabolic acidosis (HCO3 17 on admission) Improved to 5.6 Correct underlying cause. Monitor (2) Acute renal failure: QUALIFIERS: Acute renal failure type: unspecified Qualified Code(s): N17.9 - Acute kidney failure, unspecified PLAN: Admission creatinine 5.27, down to 5.11. Creatinine was 1.83 on 12/04 Suspect post-obstructive Continue IVF Hold lisinopril With metabolic acidosis (3) Valdovinos catheter problem: PLAN: per (4) DM II (diabetes mellitus, type II), controlled: PLAN: given AKBAR, will hold metformin, Jardiance and glimepiride to prevent hypoglycemia continue SSI (5) Acute UTI: PLAN: ID following. Started on cefepime and fluconazole. follow up UCx. Charges/Coding Visit Charges Inpatient E&M: 65716 Subs Hosp L2
[2022-12-19 08:23] LABS: Bedside Glucose 105 mg/dL (74-106)
[2022-12-19] MEDS: 0.9% Normal Saline 1,000 ML 100 ML IV (09:01)
[2022-12-19 09:17] VITALS: BP 123/66; PULSE 70
[2022-12-19] MEDS: Cholecalciferol (Vit D3) 125 MCG CAPSULE (5,000 UNITS) PO ×2 (09:17)
[2022-12-19] MEDS: Metoprolol(XL)Succ 100 MG Tablet PO (09:17)
[2022-12-19] MEDS: Pantoprazole Sodium 40 MG Tablet PO (09:18)
[2022-12-19] MEDS: Tamsulosin HCl 0.4 MG Capsule 0.8 MG PO (09:18)
[2022-12-19] MEDS: Ceftriaxone 1 GM/50 ML BAG IV (09:18)
[2022-12-19] MEDS: Aspirin 81 MG TAB.CHEW PO (09:18)
[2022-12-19 10:35] VITALS: BP 124/63; PULSE 70; RESP 18; TEMP 36.3
--- NOTE | 2022-12-19 10:38 | PCM.CONS.GEN ---
Assessment & Plan Assessment/Plan (1) Acute renal failure: QUALIFIERS: Acute renal failure type: unspecified Qualified Code(s): N17.9 - Acute kidney failure, unspecified (2) Acute UTI: PLAN: Will cover with cefepime and fluconazole while ucx pending. CT shows no further fluid collection, decreased R hydro with stent in place, some persistent gas. Consider CT cystogram given ongoing symptoms after recent bladder cancer resection complicated by small perforation. Will follow, thank you (3) History of bladder cancer: HPI Consult Data Date of Consult: 12/19/22 HPI Narrative Reason for Consultation: uti HPI Narrative: MIREYA LIM, is a 82 M with resection of bladder cancer about 3 weeks ago at [facility]. Surgery complicated by small bladder perforation, and stent was placed in R ureter. Came to ED at [facility] with some AKBAR, valdovinos was placed for incomplete emptying; CT showed fluid collection, thought to be urinoma. Discharged 12/05 on fluconazole due to yeast in urine. In ED 12/10, started on bactrim for uti. Over past few days, urine has been thick and cloudy, pt with some fatigue, poor appetite, weakness. Came to ED, found to have worsened AKBAR, admitted on ceftriaxone. Feeling a little better this AM. No fever. Full ROS performed and neg except as noted above. [facility] Medical History Bladder cancer DM II (diabetes mellitus, type II), controlled Home Medications atorvastatin 10 mg tablet 40 mg PO QHS Check with primary doctor 12/30/14 [History Last Taken 12/17/22 21:00] glimepiride 4 mg tablet 4 mg PO DAILY Check with primary doctor 12/30/14 [History Last Taken 12/18/22 09:00] cholecalciferol (vitamin D3) 125 mcg (5,000 unit) capsule 125 mcg PO DAILY Check with primary doctor 12/02/22 [History Last Taken 12/18/22 09:00] empagliflozin 25 mg tablet (Jardiance) 25 mg PO DAILY Check with primary doctor 12/02/22 [History Last Taken 12/18/22 09:00] lisinopril 5 mg tablet 5 mg PO DAILY Check with primary doctor 12/02/22 [History Last Taken 12/16/22 21:00] metformin 1,000 mg tablet 1,000 mg PO BID Check with primary doctor 12/02/22 [History Last Taken 12/18/22 09:00] metoprolol succinate 100 mg tablet,extended release 24 hr 100 mg PO DAILY Check with primary doctor 12/02/22 [History Last Taken 12/18/22 09:00] pantoprazole 40 mg tablet,delayed release 40 mg PO DAILY Check with primary doctor 12/02/22 [History Last Taken 12/17/22 21:00] tamsulosin 0.4 mg capsule 0.8 mg PO DAILY Check with primary doctor 12/02/22 [History Last Taken 12/18/22 09:30] aspirin 81 mg capsule 81 mg PO DAILY Cardiac 12/18/22 [History Last Taken 12/18/22 09:00] Allergy/AdvReac Type Severity Reaction Status Date / Time No Known Allergies Allergy Verified 12/18/22 18:06 Surgical History H/O transurethral resection of bladder tumor (TURBT) Hx of CABG S/P ureteral stent placement Social History household members: spouse housing: house Smoking Status: Never smoker alcohol intake: never substance use type: does not use Physical Exam Const alert, oriented x3 and no apparent distress General Appearance: cooperative HEENT normocephalic and head/scalp atraumatic Eyes PERRL and EOMs intact bilaterally Neck supple and No nodes Resp normal air movement and clear to auscultation bilaterally Cardio regular rate and regular rhythm GI soft to palpation, non-tender and non-distended Extremity General Extremity: Negative for edema Skin no rashes or lesions noted Neuro CN's II-XII intact bilaterally Lab / Micro Data Attestation: I reviewed the patient's lab results. Result Diagrams: 12/19/22 05:15 12/19/22 05:15 Labs: Laboratory Results - last 24 hr 12/18/22 19:25: WBC 7.5, RBC 3.94 L, Hgb 11.7 L, Hct 36.0 L, MCV 91.4, MCH 29.7, MCHC 32.5, RDW Std Deviation 46.5 H, RDW Coeff of Danielle 13.7, Plt Count 279, MPV 9.9, Immature Gran % (Auto) 0.300, Neut % (Auto) 68.8, Lymph % (Auto) 20.5, [place] % (Auto) 7.6, Eos % (Auto) 2.1, Baso % (Auto) 0.7, Absolute Neuts (auto) 5.2, Absolute Lymphs (auto) 1.54, Nucleated RBC % 0 12/18/22 19:25: Sodium 130 L, Potassium 7.0 H*, Chloride 101, Carbon Dioxide 17.0 L, Anion Gap 12, BUN 107 H*, Creatinine 5.27 H, Estim Creat Clear Calc 10.09, Est GFR (MDRD) Af Amer 13 L, Est GFR (MDRD) Non-Af 11 L, BUN/Creatinine Ratio 20.3 H, Glucose 200 H, Calcium 9.9 12/18/22 19:35: Urine Color Yellow, Urine Clarity Turbid, Urine pH 6.0, Ur Specific [place] 1.015, Urine Protein 100 H, Urine Glucose (UA) 250 H, Urine Ketones Negative, Urine Occult Blood 250 H, Urine Nitrite Negative, Urine Bilirubin Negative, Urine Urobilinogen Normal, Ur Leukocyte Esterase 500 H, Urine RBC 0 SEEN, Urine WBC >100 SEEN, Ur Squamous Epith Cells 0 SEEN, Urine Bacteria 0 SEEN, Urine Mucus 0 SEEN 12/19/22 05:15: WBC 8.4, RBC 4.01 L, Hgb 12.1 L, Hct 36.3 L, MCV 90.5, MCH 30.2, MCHC 33.3, RDW Std Deviation 45.7 H, RDW Coeff of Danielle 13.8, Plt Count 284, MPV 9.4, Immature Gran % (Auto) 0.400, Neut % (Auto) 57.4, Lymph % (Auto) 30.6, [place] % (Auto) 8.6, Eos % (Auto) 2.5, Baso % (Auto) 0.5, Absolute Neuts (auto) 4.8, Absolute Lymphs (auto) 2.56, Nucleated RBC % 0 12/19/22 05:15: Sodium 136, Potassium 5.6 H, Chloride 106, Carbon Dioxide 20.0 L, Anion Gap 10, BUN 103 H*, Creatinine 5.11 H, Estim Creat Clear Calc 10.41, Est GFR (MDRD) Af Amer 14 L, Est GFR (MDRD) Non-Af 12 L, BUN/Creatinine Ratio 20.2 H, Glucose 109 H, Calcium 10.4 H 12/19/22 06:29: POC Glucose 105 Radiology Impression Abdomen/Pelvis CT 12/18/22 20:00 IMPRESSION: Decreasing right hydronephrosis with right ureteral stent in place. Persistent gas in the right renal collecting system and urinary bladder, likely related to recent intervention but pyelonephrosis should also be considered. Circumferential bladder wall thickening with partial distention, correlate to exclude UTI. Electronically Signed: Lawson Munson MD at 20:49 EDT ,
[2022-12-19 11:22] LABS: Bedside Glucose 161 mg/dL (74-106)
[2022-12-19] MEDS: Fluconazole 100 MG Tablet PO (11:25)
--- NOTE | 2022-12-19 11:25 | CASEMGMT ---
RN CM Face to Face with patient for initial transition planning/care coordination assessment. RN CM introduced self and role at [facility]. Patient lying in bed, alert and oriented, at bedside. Patient willing to participate in assessment and is able to answer all questions appropriately. Care providers, pharmacy, and demographics verified. Patient wishes to discharge home but may benefit from HHC or SNF, will monitor progress with therapy. Patient states he has no further needs or concerns at this time. CM to follow for discharge planning needs that may arise. PCP: Ruddy Specialists: Chaz oreman Preferred Pharmacy: [facility] Insurance: [email or web address] Prescription Benefit: yes Living Will/HPOA: yes, Unique Araujo LNOK: , son Living Arrangements: Patient lives with in a single story home with 3 steps and railing. Patient was independent at home. Transportation: self, DME/HHC: Patient has shower chair, raised toilet, cane, walker, wheelchair at home. [facility]. Disposition Plan: TBD, anticipate HHC vs SNF, will monitor progress with therapy. Nataliia STANTON, RN, CM
--- NOTE | 2022-12-19 11:49 | NURSING ---
Clarified with padding gluer about Ensure plus due to creatinine and potassium level. No changes in orders.
[2022-12-19] MEDS: Insulin Lispro 100 UNIT/ML INSULN.PEN SC ×3 (12:12→21:50)
--- NOTE | 2022-12-19 14:55 | CASEMGMT ---
CHOLO reviewed patient's chart and noted physician is anticipating rehab for patient. CHOLO asked Brandi de la torre/jonathan community health planning director to please print a SNF list. Bailey MCINTYRE
--- NOTE | 2022-12-19 15:01 | CASEMGMT ---
Discharge Planning SNF list created and given to SW. Brandi Espino, Discharge Planning Asst.
--- NOTE | 2022-12-19 15:14 | CASEMGMT ---
SW met with patient. Introduced self and role at [facility]. SW mentioned that Dr Hankins mentioned possible rehab for patient at discharge. Patient agreed to take a list of SNF's in the event he will need rehab. He would prefer [facility] if rehab is needed. SW provided patient with a list of longterm facility providers including quality and resource use data and consistent with patient?s preferred geographic region, medical needs, and insurance network were provided from the [employer]. Bailey MCINTYRE
[2022-12-19 16:18] LABS: Bedside Glucose 195 mg/dL (74-106)
[2022-12-19 19:48] VITALS: BP 115/55; PULSE 66; RESP 16; TEMP 35.9; O2SAT 100
[2022-12-19] MEDS: Atorvastatin Calcium 40 MG Tablet PO (21:50)
[2022-12-19 22:11] LABS: Bedside Glucose 238 mg/dL (74-106)
[2022-12-19 23:37] VITALS: BP 117/54; PULSE 68; RESP 16; TEMP 35.9; O2SAT 95
[2022-12-20 06:10] VITALS: BP 124/81; PULSE 70; RESP 16; TEMP 36; O2SAT 100
[2022-12-20 06:46] LABS: Absolute Neutrophil Count 3.2 X10^3/uL (2.0-7.7); Basophil# 0.05 X10^3/uL; Basophil% 0.9 % (0-1); Eosinophil# 0.48 X10^3/uL; Eosinophils% 8.3 % (0-5); Hematocrit 33.1 % (40-54); Hemoglobin 10.4 g/dL (13.0-16.5); Lymphocyte % 27.7 % (19-41); Mean Corp Hgb Conc 31.4 g/dL (32-36); Mean Corpuscular Hgb 29.1 pg (27.0-32.0); Mean Corpuscular Volume 92.5 fL (80-94); Mean Platelet Vol. 9.9 fl (6.2-12.0); Monocyte# 0.42 X10^3/uL; Monocyte% 7.3 % (0-10); NRBC Flagged by Analyzer 0 % (0-5); Neutrophil % 55.5 % (47-70); Platelet Count 249 K/mm3 (150-450); RBC Distribution Width CV 13.9 % (11.6-14.6); RBC Distribution Width SD 47.9 fl (35.1-43.9); Red Blood Count 3.58 M/mm3 (4.6-6.2); White Blood Count 5.8 K/mm3 (4.4-11.0)
[2022-12-20 07:09] LABS: Bedside Glucose 147 mg/dL (74-106)
[2022-12-20 07:20] LABS: Anion Gap 5 (5-15); BUN 75 mg/dL (7-18); BUN/Creat Ratio 22.7 RATIO (10-20); Chloride 114 mmol/L (98-107); Creatinine, Serum 3.31 mg/dL (0.70-1.30); EST Glomerular Filtration Rate 19 mL/min (>60); Est Glom Filt Rate - Afr Amer 23 mL/min (>60); Estimated Creatinine Clearance 16.07 ml/min; Glucose 155 mg/dL (74-106); Potassium 5.2 mmol/L (3.5-5.1); Sodium Level 140 mmol/L (136-145)
--- NOTE | 2022-12-20 07:27 | PN.URO_ITS ---
Subjective Subjective 82-year-old male admitted for significant infection after transurethral resection of the bladder tumor also has a stent in the right side also had urinoma posterior to the bladder probably from a small perforation during resection of this tumor. Infectious diseases seen the patient he is on broad- spectrum antibiotics were awaiting cultures a CT cystogram was suggested but on reviewing the CAT scan for and after the urinoma is improving I do not see how a CT cystogram scan is really helping surgically it will have any surgical plans to do any operation on the bladder I think is just surgical decompression with a Pyle catheter is going to be sufficient so not can order the CAT scan. Also the patient is clinically improving his creatinine is better is down to 3.1 he tolerated meals yesterday had 3 solid meals. Has been evaluated by physical therapy and Occupational Therapy. Objective Data Objective Data Vital Signs: Vital Signs Temp Pulse Resp BP Pulse Ox O2 Del Method 96.8 F L 70 16 124/81 H 100 Room Air 12/20/22 06:10 12/20/22 06:10 12/20/22 06:10 12/20/22 06:10 12/20/22 06:10 12/20/22 06:10 Oxygen Delivery Method Room Air Weight: 84 kg Body Mass Index (BMI) 28.0 Intake & Output: Intake and Output for Last 24 Hours 12/18/22 12/19/22 12/20/22 23:59 23:59 23:59 Intake Total 1535 / 1535 Output Total 950 / 950 800 / 800 Balance 585 / 585 -800 / -800 Medical Nutrition Assessment Dietitian: Malnutrition Criteria Met Start: 12/19/22 11:10 Freq: Status: Active Protocol: Document 12/19/22 11:10 LO (Rec: 12/19/22 11:11 [id number]) Nutrition Malnutrition Evidence of Malnutrition Exists Yes Malnutrition (severe): Acute Illness/Injury Evidenced By Suboptimal Energy Intake ( Severe),Weight Loss (Severe) Clinical Problem Acute Disease or Injury Related Malnutrition Etiology severe related to recent bladder surgery and UTI Signs/Symptoms as evidenced by 5.8% weight loss in 2 weeks and <50% PO intake of estimated energy needs for 1 month. Status Active Problem Recommendation Dietitian Recommendations/Changes Continue CCD diet to manage blood glucose. Will order 120mL EPHP 4x with medpass to provide supplemental calories and protein. Lab / Micro Data Attestation: I reviewed the patient's lab results. Result Diagrams: 12/20/22 06:25 12/20/22 06:25 Labs: Laboratory Results - last 24 hr 12/19/22 06:29: POC Glucose 105 12/19/22 11:03: POC Glucose 161 H 12/19/22 15:32: POC Glucose 195 H 12/19/22 21:49: POC Glucose 238 H 12/20/22 06:04: POC Glucose 147 H 12/20/22 06:25: WBC 5.8, RBC 3.58 L, Hgb 10.4 L, Hct 33.1 L, MCV 92.5, MCH 29.1, MCHC 31.4 L D, RDW Std Deviation 47.9 H, RDW Coeff of Danielle 13.9, Plt Count 249, MPV 9.9, Immature Gran % (Auto) 0.300, Neut % (Auto) 55.5, Lymph % (Auto) 27.7, [place] % (Auto) 7.3, Eos % (Auto) 8.3 H, Baso % (Auto) 0.9, Absolute Neuts (auto) 3.2, Absolute Lymphs (auto) 1.60, Nucleated RBC % 0 12/20/22 06:25: Sodium 140, Potassium 5.2 H, Chloride 114 H, Carbon Dioxide 21.0, Anion Gap 5, BUN 75 H, Creatinine 3.31 H, Estim Creat Clear Calc 16.07, Est GFR (MDRD) Af Amer 23 L, Est GFR (MDRD) Non-Af 19 L, BUN/Creatinine Ratio 22.7 H, Glucose 155 H, Calcium 9.0 Physical Exam Const alert and oriented x3 General Appearance: cooperative HEENT normocephalic, head/scalp atraumatic, EAC's normal and TM's normal bilaterally Eyes PERRL and EOMs intact bilaterally Pupil: sluggish Neck no lymphadenopathy, supple and no JVD General: trachea midline Lymph Lymphatic: no lymphadenopathy noted, lymphedema and lymphadenopathy Resp normal respiratory effort, normal air movement and clear to auscultation bilaterally Cardio regular rate, regular rhythm and peripheral pulses 2+ throughout GI soft to palpation, non-tender and non-distended Extremity normal capillary refill and no clubbing, cyanosis or edema General Extremity: no tenderness to palpation of joints or extremities Skin no rashes or lesions noted General Skin Exam: turgor normal Lesions: no lesions Rashes: no rashes Neuro CN's II-XII intact bilaterally Speech: speech normal Motor Exam: strength 5/5 throughout; Negative for general weakness Psych thought process normal, cooperative and affect normal Appearance: appropriate Assessment & Plan Assessment/Plan (1) Acute renal failure: QUALIFIERS: Acute renal failure type: unspecified Qualified Code(s): N17.9 - Acute kidney failure, unspecified (2) Hyperkalemia: (3) Acute UTI: (4) Severe malnutrition: (5) Pyle catheter problem: (6) History of diabetes mellitus: (7) History of bladder cancer: PLAN: Patient is improving greatly but no plan to discharge the patient anytime soon last and the patient looked just like this and was discharged and came back with continued problems so can continue with hospitalization. We will await the results of his culture await input from ID as far as adjusting his antibiotics per their recommendations continue gentle hydration.
--- NOTE | 2022-12-20 08:27 | PCM.PN.HOSP ---
Reason for Visit Reason for Visit: Diagnoses Type 2 diabetes mellitus without complications (12/18/22) Unspecified severe protein-calorie malnutrition (12/18/22) Hyperkalemia (12/18/22) Acute kidney failure, unspecified (12/18/22) Urinary tract infection, site not specified (12/18/22) Unspecified complication of genitourinary prosthetic device, implant and graft, initial encounter (12/18/22) Personal history of malignant neoplasm of bladder (12/18/22) Personal history of other endocrine, nutritional and metabolic disease (12/18/22) Subjective Subjective Feels well. Urine appears more normal. Objective Data Objective Data Vital Signs: Vital Signs Temp Pulse Resp BP Pulse Ox O2 Del Method 36.0 C L 70 16 124/81 H 100 Room Air 12/20/22 06:10 12/20/22 06:10 12/20/22 06:10 12/20/22 06:10 12/20/22 06:10 12/20/22 06:10 Oxygen Delivery Method Room Air Weight: 84 kg Body Mass Index (BMI) 28.0 Intake & Output: Intake and Output for Last 24 Hours 12/18/22 12/19/22 12/20/22 23:59 23:59 23:59 Intake Total 1535 / 1535 Output Total 950 / 950 800 / 800 Balance 585 / 585 -800 / -800 Medical Nutrition Assessment Dietitian: Malnutrition Criteria Met Start: 12/19/22 11:10 Freq: Status: Active Protocol: Document 12/19/22 11:10 LO (Rec: 12/19/22 11:11 [id number]) Nutrition Malnutrition Evidence of Malnutrition Exists Yes Malnutrition (severe): Acute Illness/Injury Evidenced By Suboptimal Energy Intake ( Severe),Weight Loss (Severe) Clinical Problem Acute Disease or Injury Related Malnutrition Etiology severe related to recent bladder surgery and UTI Signs/Symptoms as evidenced by 5.8% weight loss in 2 weeks and <50% PO intake of estimated energy needs for 1 month. Status Active Problem Recommendation Dietitian Recommendations/Changes Continue CCD diet to manage blood glucose. Will order 120mL EPHP 4x with medpass to provide supplemental calories and protein. Lab / Micro Data Result Diagrams: 12/20/22 06:25 12/20/22 06:25 Labs: Laboratory Results - last 24 hr 12/19/22 11:03: POC Glucose 161 H 12/19/22 15:32: POC Glucose 195 H 12/19/22 21:49: POC Glucose 238 H 12/20/22 06:04: POC Glucose 147 H 12/20/22 06:25: WBC 5.8, RBC 3.58 L, Hgb 10.4 L, Hct 33.1 L, MCV 92.5, MCH 29.1, MCHC 31.4 L D, RDW Std Deviation 47.9 H, RDW Coeff of Danielle 13.9, Plt Count 249, MPV 9.9, Immature Gran % (Auto) 0.300, Neut % (Auto) 55.5, Lymph % (Auto) 27.7, [place] % (Auto) 7.3, Eos % (Auto) 8.3 H, Baso % (Auto) 0.9, Absolute Neuts (auto) 3.2, Absolute Lymphs (auto) 1.60, Nucleated RBC % 0 12/20/22 06:25: Sodium 140, Potassium 5.2 H, Chloride 114 H, Carbon Dioxide 21.0, Anion Gap 5, BUN 75 H, Creatinine 3.31 H, Estim Creat Clear Calc 16.07, Est GFR (MDRD) Af Amer 23 L, Est GFR (MDRD) Non-Af 19 L, BUN/Creatinine Ratio 22.7 H, Glucose 155 H, Calcium 9.0 Physical Exam Const alert and no apparent distress HEENT head/scalp atraumatic Resp normal respiratory effort, no retractions, no use of accessory muscles and clear to auscultation bilaterally Cardio regular rate, regular rhythm, S1 normal heart sound and S2 normal heart sound GI normal to inspection, nondistended, normoactive bowel sounds, soft to palpation, non-tender and non-distended Assessment & Plan Assessment/Plan (1) Hyperkalemia: PLAN: Improving patient has received insulin and glucose in the emergency room and a dose of Kayexalate. Admission k of 7. Due to AKBAR and metabolic acidosis (HCO3 17 on admission) Improved to 5.2 Correct underlying cause. Monitor (2) Acute renal failure: QUALIFIERS: Acute renal failure type: unspecified Qualified Code(s): N17.9 - Acute kidney failure, unspecified PLAN: Improving Admission creatinine 5.27, down to 3.3. Creatinine was 1.83 on 12/04 Suspect post-obstructive Continue IVF Hold lisinopril With metabolic acidosis (3) Pyle catheter problem: PLAN: per (4) DM II (diabetes mellitus, type II), controlled: PLAN: given AKBAR, will hold metformin, Jardiance and glimepiride to prevent hypoglycemia continue SSI (5) Acute UTI: PLAN: ID following. Started on cefepime and fluconazole. follow up UCx. Charges/Coding Visit Charges Inpatient E&M: 97931 Subs Hosp L2
[2022-12-20] MEDS: 0.9% Normal Saline 1,000 ML 100 ML IV ×2 (09:06→17:17)
[2022-12-20 09:08] VITALS: BP 119/48; PULSE 71
[2022-12-20] MEDS: Metoprolol(XL)Succ 100 MG Tablet PO (09:08)
[2022-12-20] MEDS: Cholecalciferol (Vit D3) 125 MCG CAPSULE (5,000 UNITS) PO (09:08)
[2022-12-20] MEDS: Fluconazole 100 MG Tablet PO (09:09)
[2022-12-20] MEDS: Tamsulosin HCl 0.4 MG Capsule 0.8 MG PO (09:09)
[2022-12-20] MEDS: Pantoprazole Sodium 40 MG Tablet PO (09:09)
[2022-12-20] MEDS: Aspirin 81 MG TAB.CHEW PO (09:10)
[2022-12-20 10:51] VITALS: PULSE 71; RESP 18; TEMP 36.6; O2SAT 100
[2022-12-20 11:36] LABS: Bedside Glucose 255 mg/dL (74-106)
[2022-12-20 11:36] LABS: Bedside Glucose 173 mg/dL (74-106)
[2022-12-20] MEDS: Insulin Lispro 100 UNIT/ML INSULN.PEN SC ×3 (11:58→22:26)
--- NOTE | 2022-12-20 13:49 | PCM.PN.ID ---
Physical Exam Narrative Feeling much better, no fever, no abd pain, urine is clearing Const alert and no apparent distress General Appearance: cooperative Resp normal air movement and clear to auscultation bilaterally Cardio regular rate and regular rhythm GI soft to palpation, non-tender and non-distended Skin no rashes or lesions noted ID ID: Route of nutrition/ use of supplements: [] Nutritional Intake: [] IV Site: [] Pyle Catheter: [] Assessment & Plan Assessment/Plan (1) Acute renal failure: QUALIFIERS: Acute renal failure type: unspecified Qualified Code(s): N17.9 - Acute kidney failure, unspecified (2) Acute UTI: PLAN: Much improved with cefepime and fluconazole. Ucx again with small amount yeast. CT shows no further fluid collection, decreased R hydro with stent in place, some persistent gas. AKBAR much improved. If nothing else grows from cultures, plan will be for another 2 weeks po fluc at discharge. Will follow (3) History of bladder cancer:
[2022-12-20 17:39] LABS: Bedside Glucose 320 mg/dL (74-106)
[2022-12-20 22:10] VITALS: BP 120/81; PULSE 72; RESP 18; TEMP 37; O2SAT 100
[2022-12-20] MEDS: Atorvastatin Calcium 40 MG Tablet PO (22:23)
[2022-12-21 01:47] LABS: Bedside Glucose 328 mg/dL (74-106)
[2022-12-21 04:00] VITALS: BP 140/68; PULSE 66; RESP 16; TEMP 36.6; O2SAT 100
[2022-12-21] MEDS: 0.9% Normal Saline 1,000 ML 100 ML IV ×2 (06:07→16:24)
--- NOTE | 2022-12-21 06:11 | PN.URO_ITS ---
Subjective Subjective Patient continues to improve the urine is not more not milk anymore still have some sediment but improving and draining well he is not having any abdominal pain tolerating regular diet and ambulating. Objective Data Objective Data Vital Signs: Vital Signs Temp Pulse Resp BP Pulse Ox O2 Del Method 97.8 F 66 16 140/68 H 100 Room Air 12/21/22 04:00 12/21/22 04:00 12/21/22 04:00 12/21/22 04:00 12/21/22 04:00 12/21/22 04:00 Oxygen Delivery Method Room Air Weight: 84 kg Body Mass Index (BMI) 28.0 Intake & Output: Intake and Output for Last 24 Hours 12/19/22 12/20/22 12/21/22 23:59 23:59 23:59 Intake Total 2635 / 2635 3078.33 / 3078.33 1000 / 1000 Output Total 950 / 950 800 / 2500 1700 / 1700 Balance 1685 / 1685 2278.33 / 578.33 -700 / -700 Medical Nutrition Assessment Dietitian: Malnutrition Criteria Met Start: 12/19/22 11:10 Freq: Status: Active Protocol: Document 12/19/22 11:10 LO (Rec: 12/19/22 11:11 [id number]) Nutrition Malnutrition Evidence of Malnutrition Exists Yes Malnutrition (severe): Acute Illness/Injury Evidenced By Suboptimal Energy Intake ( Severe),Weight Loss (Severe) Clinical Problem Acute Disease or Injury Related Malnutrition Etiology severe related to recent bladder surgery and UTI Signs/Symptoms as evidenced by 5.8% weight loss in 2 weeks and <50% PO intake of estimated energy needs for 1 month. Status Active Problem Recommendation Dietitian Recommendations/Changes Continue CCD diet to manage blood glucose. Will order 120mL EPHP 4x with medpass to provide supplemental calories and protein. Lab / Micro Data Result Diagrams: 12/20/22 06:25 12/20/22 06:25 Labs: Laboratory Results - last 24 hr 12/20/22 06:04: POC Glucose 147 H 12/20/22 06:25: WBC 5.8, RBC 3.58 L, Hgb 10.4 L, Hct 33.1 L, MCV 92.5, MCH 29.1, MCHC 31.4 L D, RDW Std Deviation 47.9 H, RDW Coeff of Danielle 13.9, Plt Count 249, MPV 9.9, Immature Gran % (Auto) 0.300, Neut % (Auto) 55.5, Lymph % (Auto) 27.7, [place] % (Auto) 7.3, Eos % (Auto) 8.3 H, Baso % (Auto) 0.9, Absolute Neuts (auto) 3.2, Absolute Lymphs (auto) 1.60, Nucleated RBC % 0 12/20/22 06:25: Sodium 140, Potassium 5.2 H, Chloride 114 H, Carbon Dioxide 21.0, Anion Gap 5, BUN 75 H, Creatinine 3.31 H, Estim Creat Clear Calc 16.07, E st GFR (MDRD) Af Amer 23 L, Est GFR (MDRD) Non-Af 19 L, BUN/Creatinine Ratio 22.7 H, Glucose 155 H, Calcium 9.0 12/20/22 09:01: POC Glucose 173 H 12/20/22 11:18: POC Glucose 255 H 12/20/22 17:16: POC Glucose 320 H 12/20/22 22:26: POC Glucose 328 H Micro: Microbiology 12/18/22 19:35 Urine Catheter - Pyle Urine Culture - Final Presumptive C albicans Physical Exam Const alert and oriented x3 General Appearance: cooperative HEENT normocephalic, head/scalp atraumatic, EAC's normal and TM's normal bilaterally Eyes PERRL and EOMs intact bilaterally Pupil: sluggish Neck no lymphadenopathy, supple and no JVD General: trachea midline Lymph Lymphatic: no lymphadenopathy noted, lymphedema and lymphadenopathy Resp normal respiratory effort, normal air movement and clear to auscultation bilaterally Cardio regular rate, regular rhythm and peripheral pulses 2+ throughout GI soft to palpation, non-tender and non-distended Extremity normal capillary refill and no clubbing, cyanosis or edema General Extremity: no tenderness to palpation of joints or extremities Skin no rashes or lesions noted General Skin Exam: turgor normal Lesions: no lesions Rashes: no rashes Neuro CN's II-XII intact bilaterally Speech: speech normal Motor Exam: strength 5/5 throughout; Negative for general weakness Psych thought process normal, cooperative and affect normal Appearance: appropriate Assessment & Plan Assessment/Plan (1) Acute renal failure: QUALIFIERS: Acute renal failure type: unspecified Qualified Code(s): N17.9 - Acute kidney failure, unspecified PLAN: Continue with antibiotics and antifungal per ID recommendation continue with catheter decompression for bladder and perforation he has a stent on the right side for the tumor was involved in the right ureter. (2) Hyperkalemia: (3) Acute UTI: (4) Severe malnutrition:
[2022-12-21 06:21] LABS: Absolute Lymphocyte Count 1.15 X10^3/uL (0.83-4.51); Absolute Neutrophil Count 3.5 X10^3/uL (2.0-7.7); Basophil# 0.04 X10^3/uL; Basophil% 0.7 % (0-1); Eosinophil# 0.46 X10^3/uL; Eosinophils% 8.2 % (0-5); Hematocrit 31.4 % (40-54); Hemoglobin 10.3 g/dL (13.0-16.5); Lymphocyte # 1.15 X10^3/ul (0.83-4.51); Lymphocyte % 20.6 % (19-41); Mean Corp Hgb Conc 32.8 g/dL (32-36); Mean Corpuscular Hgb 30.5 pg (27.0-32.0); Mean Corpuscular Volume 92.9 fL (80-94); Mean Platelet Vol. 9.9 fl (6.2-12.0); Monocyte# 0.43 X10^3/uL; Monocyte% 7.7 % (0-10); NRBC Flagged by Analyzer 0 % (0-5); Neutrophil # 3.46 X10^3/uL (2.7-7.7); Neutrophil % 62.1 % (47-70); Platelet Count 231 K/mm3 (150-450); RBC Distribution Width SD 47.9 fl (35.1-43.9); Red Blood Count 3.38 M/mm3 (4.6-6.2); White Blood Count 5.6 K/mm3 (4.4-11.0)
[2022-12-21] MEDS: Insulin Lispro 100 UNIT/ML INSULN.PEN SC ×4 (06:36→22:05)
[2022-12-21 06:48] LABS: Anion Gap 5 (5-15); BUN 51 mg/dL (7-18); BUN/Creat Ratio 22.1 RATIO (10-20); Calcium,Total 8.8 mg/dL (8.5-10.1); Chloride 115 mmol/L (98-107); Creatinine, Serum 2.31 mg/dL (0.70-1.30); EST Glomerular Filtration Rate 29 mL/min (>60); Est Glom Filt Rate - Afr Amer 35 mL/min (>60); Estimated Creatinine Clearance 23.03 ml/min; Glucose 216 mg/dL (74-106); Potassium 5.2 mmol/L (3.5-5.1); Sodium Level 138 mmol/L (136-145)
[2022-12-21 06:59] LABS: Bedside Glucose 198 mg/dL (74-106)
--- NOTE | 2022-12-21 08:11 | PCM.PN.HOSP ---
Reason for Visit Reason for Visit: Diagnoses Type 2 diabetes mellitus without complications (12/18/22) Unspecified severe protein-calorie malnutrition (12/18/22) Hyperkalemia (12/18/22) Acute kidney failure, unspecified (12/18/22) Urinary tract infection, site not specified (12/18/22) Unspecified complication of genitourinary prosthetic device, implant and graft, initial encounter (12/18/22) Personal history of malignant neoplasm of bladder (12/18/22) Personal history of other endocrine, nutritional and metabolic disease (12/18/22) Subjective Subjective Feels well. Objective Data Objective Data Vital Signs: Vital Signs Temp Pulse Resp BP Pulse Ox O2 Del Method 36.6 C 66 16 140/68 H 100 Room Air 12/21/22 04:00 12/21/22 04:00 12/21/22 04:00 12/21/22 04:00 12/21/22 04:00 12/21/22 04:00 Oxygen Delivery Method Room Air Weight: 84 kg Body Mass Index (BMI) 28.0 Intake & Output: Intake and Output for Last 24 Hours 12/19/22 12/20/22 12/21/22 23:59 23:59 23:59 Intake Total 2635 / 2635 3078.33 / 3078.33 1000 / 1000 Output Total 950 / 950 800 / 2500 2550 / 2550 Balance 1685 / 1685 2278.33 / 578.33 -1550 / -1550 Medical Nutrition Assessment Dietitian: Malnutrition Criteria Met Start: 12/19/22 11:10 Freq: Status: Active Protocol: Document 12/19/22 11:10 (Rec: 12/19/22 11:11 [id number]) Nutrition Malnutrition Evidence of Malnutrition Exists Yes Malnutrition (severe): Acute Illness/Injury Evidenced By Suboptimal Energy Intake ( Severe),Weight Loss (Severe) Clinical Problem Acute Disease or Injury Related Malnutrition Etiology severe related to recent bladder surgery and UTI Signs/Symptoms as evidenced by 5.8% weight loss in 2 weeks and <50% PO intake of estimated energy needs for 1 month. Status Active Problem Recommendation Dietitian Recommendations/Changes Continue CCD diet to manage blood glucose. Will order 120mL EPHP 4x with medpass to provide supplemental calories and protein. Lab / Micro Data Result Diagrams: 12/21/22 05:34 12/21/22 05:34 Labs: Laboratory Results - last 24 hr 12/20/22 09:01: POC Glucose 173 H 12/20/22 11:18: POC Glucose 255 H 12/20/22 17:16: POC Glucose 320 H 12/20/22 22:26: POC Glucose 328 H 12/21/22 05:34: WBC 5.6, RBC 3.38 L, Hgb 10.3 L, Hct 31.4 L, MCV 92.9, MCH 30.5, MCHC 32.8, RDW Std Deviation 47.9 H, RDW Coeff of Danielle 14.0, Plt Count 231, MPV 9.9, Immature Gran % (Auto) 0.700, Neut % (Auto) 62.1, Lymph % (Auto) 20.6, [place] % (Auto) 7.7, Eos % (Auto) 8.2 H, Baso % (Auto) 0.7, Absolute Neuts (auto) 3.5, Absolute Lymphs (auto) 1.15, Nucleated RBC % 0 12/21/22 05:34: Sodium 138, Potassium 5.2 H, Chloride 115 H, Carbon Dioxide 18.0 L, Anion Gap 5, BUN 51 H, Creatinine 2.31 H, Estim Creat Clear Calc 23.03, Est GFR (MDRD) Af Amer 35 L, Est GFR (MDRD) Non-Af 29 L, BUN/Creatinine Ratio 22.1 H, Glucose 216 H, Calcium 8.8 12/21/22 06:36: POC Glucose 198 H Micro: Microbiology 12/18/22 19:35 Urine Catheter - Pyle Urine Culture - Final Presumptive C albicans Physical Exam Const alert and no apparent distress HEENT head/scalp atraumatic and moist oral mucous membranes Resp normal respiratory effort, no retractions, no use of accessory muscles and clear to auscultation bilaterally Cardio regular rate, regular rhythm, S1 normal heart sound and S2 normal heart sound GI normal to inspection, nondistended, normoactive bowel sounds, soft to palpation, non-tender and non-distended Assessment & Plan Assessment/Plan (1) Hyperkalemia: PLAN: Improving patient has received insulin and glucose in the emergency room and a dose of Kayexalate. Admission k of 7. Due to AKBAR and metabolic acidosis (HCO3 17 on admission) Improved to 5.2 Correct underlying cause. Monitor (2) Acute renal failure: QUALIFIERS: Acute renal failure type: unspecified Qualified Code(s): N17.9 - Acute kidney failure, unspecified PLAN: Improving Admission creatinine 5.27, down to 3.3. Creatinine was 1.83 on 12/04 Suspect post-obstructive Continue to Hold lisinopril With metabolic acidosis HLIV (3) Pyle catheter problem: PLAN: per (4) DM II (diabetes mellitus, type II), controlled: PLAN: given AKBAR, metformin, Jardiance and glimepiride were held. Will resume as kidney function has continued to improve continue SSI (5) Acute UTI: PLAN: ID following. Started on cefepime and fluconazole. follow up UCx. PLAN: Plan Medically stable for discharge. The hospitalist will sign off, please call with questions. Charges/Coding Visit Charges Inpatient E&M: 28708 Subs Hosp L2
[2022-12-21 08:40] VITALS: BP 129/61; PULSE 64; RESP 18; TEMP 36.7; O2SAT 100
[2022-12-21 08:49] VITALS: BP 129/61; PULSE 64
[2022-12-21] MEDS: Metoprolol(XL)Succ 100 MG Tablet PO (08:49)
[2022-12-21] MEDS: Tamsulosin HCl 0.4 MG Capsule 0.8 MG PO (08:50)
[2022-12-21] MEDS: Fluconazole 100 MG Tablet PO (08:50)
[2022-12-21] MEDS: Aspirin 81 MG TAB.CHEW PO (08:50)
[2022-12-21] MEDS: Pantoprazole Sodium 40 MG Tablet PO (08:50)
[2022-12-21] MEDS: Empagliflozin 25 MG Tablet PO (09:53)
--- NOTE | 2022-12-21 10:50 | CASEMGMT ---
Discharge Planning HH list created and given to GALINA Espino, Discharge Planning Asst.
--- NOTE | 2022-12-21 11:27 | PCM.PN.ID ---
Physical Exam Narrative Feeling better, no fever, no abd pain Const alert and no apparent distress Resp normal air movement and clear to auscultation bilaterally Cardio regular rate and regular rhythm GI soft to palpation, non-tender and non-distended Skin no rashes or lesions noted ID ID: Route of nutrition/ use of supplements: [] Nutritional Intake: [] IV Site: [] Pyle Catheter: [] Assessment & Plan Assessment/Plan (1) Acute renal failure: QUALIFIERS: Acute renal failure type: unspecified Qualified Code(s): N17.9 - Acute kidney failure, unspecified (2) Acute UTI: PLAN: Much improved with cefepime and fluconazole. Ucx again with small amount yeast. CT shows no further fluid collection, decreased R hydro with stent in place, some persistent gas. AKBAR much improved, better today. If nothing else grows from cultures, plan will be for another 2 weeks po fluc at discharge. Will follow (3) History of bladder cancer:
[2022-12-21 12:07] LABS: Bedside Glucose 239 mg/dL (74-106)
[2022-12-21 14:40] VITALS: BP 126/68; PULSE 66; RESP 18; TEMP 36.6; O2SAT 98
--- NOTE | 2022-12-21 14:53 | CASEMGMT ---
GALINA CM In to discuss HHC with patient and . Patient and agreeable to HHC. A list of HHC providers including quality and resource use data and consistent with the patient?s preferred geographical region, medical needs, and insurance network were provided from the [employer] Guide. Patient and prefer [facility]. GALINA BURRIS left message with [facility] with referral, awaiting acceptance. CM will continue to follow this patient and plan for a safe discharge.
[2022-12-21] MEDS: metFORMIN HCl 1,000 MG Tablet 1000 MG PO (16:20)
[2022-12-21 16:56] LABS: Bedside Glucose 270 mg/dL (74-106)
[2022-12-21 21:55] VITALS: BP 156/74; PULSE 75; RESP 16; TEMP 36.8; O2SAT 99
[2022-12-21] MEDS: Atorvastatin Calcium 40 MG Tablet PO (22:05)
[2022-12-22 00:21] LABS: Bedside Glucose 296 mg/dL (74-106)
[2022-12-22] MEDS: 0.9% Normal Saline 1,000 ML 100 ML IV (02:25)
[2022-12-22 03:56] VITALS: BP 141/62; PULSE 67; RESP 16; TEMP 36.7; O2SAT 98
[2022-12-22] MEDS: Insulin Lispro 100 UNIT/ML INSULN.PEN SC ×2 (06:25→11:24)
[2022-12-22 06:49] LABS: Bedside Glucose 174 mg/dL (74-106)
[2022-12-22 09:35] VITALS: BP 148/71; PULSE 71; RESP 18; TEMP 36.7; O2SAT 97
[2022-12-22] MEDS: Cholecalciferol (Vit D3) 125 MCG CAPSULE (5,000 UNITS) PO (09:39)
[2022-12-22] MEDS: Tamsulosin HCl 0.4 MG Capsule 0.8 MG PO (09:39)
[2022-12-22] MEDS: Pantoprazole Sodium 40 MG Tablet PO (09:39)
[2022-12-22] MEDS: Glimepiride 4 MG Tablet PO (09:39)
[2022-12-22] MEDS: Aspirin 81 MG TAB.CHEW PO (09:39)
[2022-12-22] MEDS: metFORMIN HCl 1,000 MG Tablet 1000 MG PO (09:39)
[2022-12-22 09:40] VITALS: BP 148/71; PULSE 71
[2022-12-22] MEDS: Empagliflozin 25 MG Tablet PO (09:40)
[2022-12-22] MEDS: Metoprolol(XL)Succ 100 MG Tablet PO (09:40)
[2022-12-22] MEDS: Fluconazole 100 MG Tablet PO (09:40)
[2022-12-22 11:49] LABS: Bedside Glucose 199 mg/dL (74-106)
--- NOTE | 2022-12-22 13:40 | PCM.DC.SUM ---
Providers Date of Admission: 12/18/22 Primary Care Physician: Dr. Del Fox DO Consultations 12/18/22 22:36 Consult: Infectious Disease Routine Consulting Provider: Milind Street Reason for Consult: acute uti, akbar EMERGENT Consult: No MD Notified: Yes Date Notified: 12/18/22 Time Notified: 06:49 Method of Notification: Text 12/18/22 22:37 Consult: Hospitalist Routine Consulting Provider: Jamal Dutton Reason for Consult: abnormal potassium level EMERGENT Consult: No Notified: Yes Date Notified: 12/18/22 Time Notified: 22:37 Method of Notification: Text Reason For Visit: ACUTE UTI/ BLADDER CANCER / AKBAR/ DEHYDRATION Diagnosis Discharge Diagnosis (1) Hyperkalemia: Status: Acute Code(s): E87.5 - Hyperkalemia (2) Acute renal failure: Status: Acute Code(s): N17.9 - Acute kidney failure, unspecified Qualifiers: Acute renal failure type: unspecified Qualified Code(s): N17.9 - Acute kidney failure, unspecified Plan: Continue with antibiotics and antifungal per ID recommendation continue with catheter decompression for bladder and perforation he has a stent on the right side for the tumor was involved in the right ureter. (3) Pyle catheter problem: Status: Inactive Code(s): T83.9XXA - Unspecified complication of genitourinary prosthetic device, implant and graft, initial encounter (4) DM II (diabetes mellitus, type II), controlled: Status: Acute Code(s): E11.9 - Type 2 diabetes mellitus without complications (5) Acute UTI: Status: Acute Code(s): N39.0 - Urinary tract infection, site not specified Medications at Discharge Home Medications atorvastatin 10 mg tablet 40 mg PO QHS Check with primary doctor 12/30/14 glimepiride 4 mg tablet 4 mg PO DAILY Check with primary doctor 12/30/14 cholecalciferol (vitamin D3) 125 mcg (5,000 unit) capsule 125 mcg PO DAILY Check with primary doctor 12/02/22 empagliflozin 25 mg tablet (Jardiance) 25 mg PO DAILY Check with primary doctor 12/02/22 metformin 1,000 mg tablet 1,000 mg PO BID Check with primary doctor 12/02/22 metoprolol succinate 100 mg tablet,extended release 24 hr 100 mg PO DAILY Check with primary doctor 12/02/22 pantoprazole 40 mg tablet,delayed release 40 mg PO DAILY Check with primary doctor 12/02/22 tamsulosin 0.4 mg capsule 0.8 mg PO DAILY Check with primary doctor 12/02/22 aspirin 81 mg capsule 81 mg PO DAILY Cardiac 12/18/22 fluconazole 100 mg tablet (Diflucan) 100 mg PO BID #28 tabs 12/22/22 Hospital Course Summary of Care Provided Hospital Course: Patient was admitted to the hospital for acute renal failure urinary tract infection with Corina he was seen by infectious disease consulted the medical service for medical management during his hospital course he improved greatly tolerating regular diet he passed physical therapy as he is going go home with physical therapy at home with a walker. Diet ID recommended 2 weeks of Diflucan which go home with that medication and he will follow-up in my office to have the catheter removed. And then will remove the stent about a month or so from now. Physical Exam Const alert and oriented x3 General Appearance: cooperative HEENT normocephalic, head/scalp atraumatic, EAC's normal and TM's normal bilaterally Eyes PERRL and EOMs intact bilaterally Pupil: sluggish Neck no lymphadenopathy, supple and no JVD General: trachea midline Lymph Lymphatic: no lymphadenopathy noted, lymphedema and lymphadenopathy Resp normal respiratory effort, normal air movement and clear to auscultation bilaterally Cardio regular rate, regular rhythm and peripheral pulses 2+ throughout GI soft to palpation, non-tender and non-distended Extremity normal capillary refill and no clubbing, cyanosis or edema General Extremity: no tenderness to palpation of joints or extremities Skin no rashes or lesions noted General Skin Exam: turgor normal Lesions: no lesions Rashes: no rashes Neuro CN's II-XII intact bilaterally Speech: speech normal Motor Exam: strength 5/5 throughout; Negative for general weakness Psych thought process normal, cooperative and affect normal Appearance: appropriate Medical Records Data Medical Nutrition Assessment Dietitian: Malnutrition Criteria Met Start: 12/19/22 11:10 Freq: Status: Active Protocol: Document 12/19/22 11:10 LO (Rec: 12/19/22 11:11 [id number]) Nutrition Malnutrition Evidence of Malnutrition Exists Yes Malnutrition (severe): Acute Illness/Injury Evidenced By Suboptimal Energy Intake ( Severe),Weight Loss (Severe) Clinical Problem Acute Disease or Injury Related Malnutrition Etiology severe related to recent bladder surgery and UTI Signs/Symptoms as evidenced by 5.8% weight loss in 2 weeks and <50% PO intake of estimated energy needs for 1 month. Status Active Problem Recommendation Dietitian Recommendations/Changes Continue CCD diet to manage blood glucose. Will order 120mL EPHP 4x with medpass to provide supplemental calories and protein. Weight / BMI Weight Weight: 84 kg Body Mass Index (BMI) 28.0 ABG / Lab / Microbiology Data Result Diagrams: 12/21/22 05:34 12/21/22 05:34 Laboratory: Laboratory Results - last 24 hr 12/21/22 16:16: POC Glucose 270 H 12/21/22 21:58: POC Glucose 296 H 12/22/22 06:23: POC Glucose 174 H 12/22/22 11:21: POC Glucose 199 H Microbiology: Microbiology 12/18/22 19:35 Urine Catheter - Pyle Urine Culture - Final Presumptive C albicans D/C Instructions Discharge Diet: No restrictions, Light diet - advance as tolerated and Soft diet Call your doctor if you observe: Fever of 101 or Higher Please Follow Up With: Jared Hankins MD When: 2 weeks. Meaningful Use Info Meaningful Use Diagnoses (Choose all that apply): None applicable Discharge Plan Admission Admit Date/Time: 12/18/22 22:34 Primary Reason for Your Visit: infection Attending Provider: Jared Hankins Primary Care Provider: Dle Fox Consulting Providers: Greg Arellano ; Jamal Dutton ; Milind Street Discharge Orders/Prescriptions Prescriptions: New fluconazole [Diflucan] 100 mg tablet 100 mg PO BID Qty: 28 0RF Continued atorvastatin 10 MG tablet 40 mg PO QHS glimepiride 4 MG tablet 4 mg PO DAILY metoprolol succinate 100 mg tablet extended release 24 hr 100 mg PO DAILY tamsulosin 0.4 mg Capsule 0.8 mg PO DAILY pantoprazole 40 mg tablet,delayed release (DR/EC) 40 mg PO DAILY metformin 1,000 mg Tablet 1,000 mg PO BID Jardiance 25 mg tablet 25 mg PO DAILY cholecalciferol (vitamin D3) 125 mcg (5,000 unit) capsule 125 mcg PO DAILY Label Comments: TAKE 1 CAPSULE BY MOUTH EVERY DAY aspirin 81 mg Capsule 81 mg PO DAILY Discontinued lisinopril 5 mg tablet 5 mg PO DAILY Referrals / Follow Up: Jared Hankins MD [Med Staff - Active Staff] - Del Fox DO [Primary Care Provider] - Disposition Discharge Orders: Discharge Patient (Routine); Ordered 12/22/22 Ordered By: Dr. Jared Hankins
--- NOTE | 2022-12-22 14:28 | PCM.PN.ID ---
Physical Exam Narrative Feeling well. No fever, urine improved. No abd pain. Const alert and no apparent distress General Appearance: cooperative Resp normal air movement and clear to auscultation bilaterally Cardio regular rate and regular rhythm GI soft to palpation, non-tender and non-distended Skin no rashes or lesions noted ID ID: Route of nutrition/ use of supplements: [] Nutritional Intake: [] IV Site: [] Pyle Catheter: [] Assessment & Plan Assessment/Plan (1) Acute renal failure: QUALIFIERS: Acute renal failure type: unspecified Qualified Code(s): N17.9 - Acute kidney failure, unspecified (2) Acute UTI: PLAN: Much improved with cefepime and fluconazole. Ucx again with small amount yeast. CT shows no further fluid collection, decreased R hydro with stent in place, some persistent gas. AKBAR much improved. Ok for home with another 2 weeks po fluc at discharge. Will follow as needed (3) History of bladder cancer:
--- NOTE | 2022-12-22 14:45 | CASEMGMT ---
RN CM receive update that [facility] is able to accept patient with Sunday start of care. RN CM into patient's room to notified of acceptance with [facility] and start of care for Sunday. Patient and voiced understand. Patient and denied further needs at discharge and had no further questions or concern at this time.
[2022-12-22 15:24] VITALS: BP 148/71; PULSE 71; RESP 18; TEMP 36.7; O2SAT 97
== END 2022-12-22 15:47 | disposition home health service (06) | DRG 862 ==
LOC: ED 19:43 → MS3 22:44 → PCU 23:33
PROVIDERS: Admitting Provider Urology; Emergency Provider Student in an Organized Health Care Education/Training Program; PCP Student in an Organized Health Care Education/Training Program; Visit Provider Urology
DX: T81.49XA Infection following a procedure, other surgical site, initial encounter (principal); E43 Unspecified severe protein-calorie malnutrition; N17.9 Acute kidney failure, unspecified; E87.20 Acidosis, unspecified; E87.1 Hypo-osmolality and hyponatremia; N13.6 Pyonephrosis; N99.71 Accidental puncture and laceration of a genitourinary system organ or structure during a genitourinary system procedure; B37.49 Other urogenital candidiasis; E11.9 Type 2 diabetes mellitus without complications; E87.5 Hyperkalemia; N36.8 Other specified disorders of urethra; R33.9 Retention of urine, unspecified; Z79.82 Long term (current) use of aspirin; Z79.84 Long term (current) use of oral hypoglycemic drugs; Z79.899 Other long term (current) drug therapy; Z85.51 Personal history of malignant neoplasm of bladder; Z68.28 Body mass index [BMI] 28.0-28.9, adult
CPT/HCPCS: 36415; 51702; 74176; 80048; 81001; 82962; 85025; 87086; 87088; 93005; 97162; 97166; 97530; 97535; 97802; 97803; 99282; 99285; J7030; A4216; J0612

== ENCOUNTER 2023-03-14 11:00 | Outpatient (RCR) | payer MEDICARE, OTHER, SELFPAY ==
--- NOTE | 2023-01-23 11:16 | HP.PTEVAL ---
Patient's Visit Information Visit Information Visit Information: MIREYA LIM is a 82 year old M referred to Physical Therapy by Dr. Del Fox DO with a diagnosis of Unsteady gait.. Date of Evaluation: 01/23/23 Physical Therapist: Greg Villanueva, DPT, OCS, CSCS Visit Plan Frequency: 3x /Week Duration: 4-6 Weeks Plan: 3x/week for 4-6 weeks for... 1. vestibular focussed balance ex to HEP 2. L hip strength to HEP 3. Teach general ex on machines and progressions/set up for [employer] program when able with list Subjective Subjective: Had a bad bacterial infection and spent time in hospital after removing bladder tumor. Operation was november 17 and things went down hill. He lost 30# in two weeks and was in hospital for 2 days then 5 days. Had home health and January with exercises at sink and chair. No falls but balance is not great. Strength is improving but was very week. Used WC for a long time but now able to walk. Live with , one story house. 3 steps to enter with rail and they are OK now. Basic ADLS dressing showering in chair and bathroom I. Retired. Activiites prior : cutting grass and lawn work and not back to that. Hobbies: golf but not in two years, back pain held him back. Would like to get back to cutting grass and boating etc. Not sure balance is good enough to walk on dock. No ex prior except walking the dog and housework. Is now doing sink exercises at home, skipped last week due to tweak in groin. Pain LBP: Pain Intensity (Out of 10): 0 Pain Intensity Range: 0 and 4 Comment: standing is worse. Objective Objective: L trendelenberg gait,(broke femur when 12, but did not always walk this way). Has wedge in L shoe as that leg is shorter 3/8 inch. [place] L stance time slightly. Fair balance. Transfers chair I without UE. Steps reciprocal with one rail. hip strength L 3+ abd and ext and R 4-, flexion 4- B. Knee flexion and extension 4/5 B. ankle strength 4/5 B in all directions. reflexes 1/3 patella and achilles Sensation WNL to gross light touch B LE. coordination to reciprocal toe tap and heel tap is fair. UE AROM WFL. Balance/Special Test Scores Functional Gait Assessment Score: 22 % Disability: 26.6700 CATSIB Score (Max score 120 seconds): 97 Lower Extremity Functional Score: 36 Goals Goal 1:: FGA score 25/30 to show improved balance Goal Time Frame: 4-6 Weeks Goal 2:: LEFS 55 Goal Time Frame: 4-6 Weeks Goal 3:: I appropriate strength adn balance ex via silver sneakers Goal Time Frame: 4-6 Weeks Goal 4:: Comfortable walking on boat Goal Time Frame: 4-6 Weeks Rehabilitation Potential Physical Therapy Diagnosis: unsteady gait and weakness after recent hospital stay, diminished mobility Rehabilitation Potential: Good Anticipated Interventions Patient/Client Instruction: Educate patient on: Condition and Plan of Care For the Purpose of:: To increase ROM, To improve nutrient delivery to tissue and To improve muscle performance and motor function Therapeutic Exercise to Include: Strength training, Balance training, Postural training, Flexibilty training and Gait and locomotor training For the Purpose of:: To decrease pain, To decrease swelling/inflammation, To improve nutrient delivery to tissue, To increase oxygenation perfusion, To improve muscle performance and motor function, To increase tolerance to activity/condition/position, To improve gait and locomotor functions and To improve health of tissue Text: Thank you for the opportunity to evaluate your patient. For Medicare and Medicare HMO plans, please review the plan of care and approve it. It will need to be FAXED BACK to us at [phone] for Medicare purposes. For Medicare only, by signing this I certify the plan of care. Please let me know if there are questions or concerns regarding this plan of care. Physician Signature: Date:
--- NOTE | 2023-03-14 11:52 | HP.PTDCSUM ---
Discharge Summary D/C summary: It has been my pleasure to treat MIREYA LIM referred by Dr. Del Fox DO, with the diagnosis of Unsteady gait. for a total of 17 visit(s). Discharge Date: 03/14/23 Please see the following information for a summary of their discharge status. Subjective Subjective: Doing a moderate progressive workout. Wallking is still hardest thing due to B hip pain. Longer walks at football stadiums cause him to need rest. Activities are mostly normal but starting to get more busy with yard work. Mowed lawn again. Will weed whack this week. Sleep is OK. Saw doctor last week adn doing well. Had EKG and is OK pumping at 50%. Pain LBP: Pain Intensity (Out of 10): Unrated L SH: Pain Intensity (Out of 10): Unrated Overall Improvement % Improvement: 75 Objective Objective/Function: FGa is +6 and doing well getting around. will try golf swing . 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 Jc I. Goals Goal 1:: FGA score 25/30 to show improved balance Goal Progress: Goal Met Goal 2:: LEFS 55 Goal Progress: Progressing Goal 3:: I appropriate strength adn balance ex via [employer] Goal Progress: Goal Met Goal 4:: Comfortable walking on boat Goal Progress: feels like he could Plan Plan: d/c D/C Information Discharge Comments: Will continue in gymj as [employer] member. d/c sentence: If there are questions or concerns regarding this patient's physical therapy, please feel free to call me at [phone]. Thank you for the referral of this patient. Sincerely, Greg Villanueva, DPT, OCS, CSCS Balance/Gait/Functional tests Balance/Special Test Scores Functional Gait Assessment Score: 28 % Disability: 6.6700 CATSIB Score (Max score 120 seconds): 97 Lower Extremity Functional Score: 44 Improvement % Improvement: 75
== END 2023-03-14 15:22 | disposition home or self-care (01) ==
LOC: PT 11:00
PROVIDERS: PCP Student in an Organized Health Care Education/Training Program; Referring Provider Student in an Organized Health Care Education/Training Program; Visit Provider Student in an Organized Health Care Education/Training Program
DX: R26.81 Unsteadiness on feet (principal)
CPT/HCPCS: 97110; 97162; 97164; 97530

== ENCOUNTER → 2023-07-26 | Outpatient (CLI) | payer MEDICARE, OTHER, SELFPAY ==
--- OUTSIDE RECORDS SUMMARY | 2023-07-26 16:38 | XMS RPT_ITS | CCD ---
Author Name Unknown Address [address] [place] [address] Organization [facility] Care Team Providers Care Hull Drafter Name Role Phone MICHAEL MIDDLETON DO Primary Care Physician ([id number] Shasta PT, Lilian Unavailable Unavailable BAGLEY PA-C, DAY Attending Unavailable HALKO DO, Primary Care Unavailable HALKO DO, Attending Unavailable HALKO DO, Primary Care Unavailable HALKO DO, Attending Unavailable HALKO DO, Primary Care Unavailable HALKO DO, Attending Unavailable HALKO DO, Primary Care Unavailable HALKO DO, Attending Unavailable HALKO DO, Primary Care Unavailable BAGLEY PA-C, DAY Attending Unavailable HALKO DO, Primary Care Unavailable HALKO DO, Attending Unavailable HALKO DO, Primary Care Unavailable HALKO DO, Attending Unavailable HALKO DO, Primary Care Unavailable BAGLEY PA-C, DAY Attending Unavailable HALKO DO, Primary Care Unavailable HALKO DO, Attending Unavailable HALKO DO, Primary Care Unavailable HALKO DO, Attending Unavailable HALKO DO, Primary Care Unavailable BAGLEY PA-C, DAY Attending Unavailable HALKO DO, Primary Care Unavailable HALKO DO, Attending Unavailable HALKO DO, Primary Care Unavailable KRISSY ARMSTRONG, DR DIONNE HDZ Attending Nidhi lable HALKO DO, Primary Care Unavailable DR DIONNE REY MD Attending Nancyi lable HALKO DO, Primary Care Unavailable HALKO DO, Attending Unavailable HALKO DO, Primary Care Unavailable HALKO DO, Attending Unavailable HALKO DO, Primary Care Unavailable Allergies Allergy Classification Reported Allergen(s) Allergy Type Date of Onset Reaction(s) Facility (14 sources) Acetaminophen / HYDROcodone; Translations: [acetaminophen-hyd rocodone] Drug Allergy Nausea (finding), Vomiting (disorder) [facility] Work Phone: Medications Current Medications Medication Drug Class(es) Dates Sig (Normalized) Sig (Original) acetaminophen 325 mg / oxyCODONE hydrochloride 2.5 mg oral tablet (1 source) Opioid Agonist Start: 11-17-2022 End: 11-24-2022 take 1 tablet by mouth every four hours as needed for pain Endocet 2.5/325 oral tablet Dose = 1 tab(s), Oral, q4h, PRN for pain, X 7 day(s), # 12 tab(s), 0 Refill(s), Pharmacy: [facility]/pharmacy #[id number], Bladder cancer, 175.3, cm, 11/17/22 13:00:00 EDT, Height, 97.7 Start Date: 11/17/22 Stop Date: 11/24/22 Status: Ordered apixaban 5 mg oral tablet (2 sources) Factor Xa Inhibitor Start: 03-27-2023 Eliquis 5 mg oral tablet Dose : 5 mg = 1 tab(s), Oral, BID, # 180 tab(s), 1 Refill(s), Pharmacy: [facility]/pharmacy #[id number], 175, cm, 03/09/23 13:23:00 EDT, Height, 93.3, kg, 03/09/23 13:23:00 EDT, Dosing Weight Start Date: 03/27/23 Status: Ordered ascorbic acid 500 mg oral tablet (1 source) Vitamin C Start: 07-23-2019 Vitamin C 500 mg oral tablet Dose : 500 mg = 1 tab(s), Oral, qDay, 0 Refill(s) Start Date: 07/23/19 Status: Ordered aspirin 81 mg delayed release oral tablet (16 sources) Platelet Aggregation Inhibitor, Nonsteroidal Anti-inflammatory Drug Start: 11-07-2018 aspirin 81 mg oral delayed release tablet Dose : 81 mg = 1 tab(s), Oral, Daily, 0 Refill(s) Start Date: 11/07/18 Status: Ordered Completed/Discontinued Medications Medication Drug Class(es) Dates Sig (Normalized) Sig (Original) fluconazole 100 mg oral tablet (1 source) Azole Antifungal Start: 01-01-2023 Diflucan 100 mg oral tablet Dose : 100 mg = 1 tab(s), Oral, qDay, 0 Refill(s), 87.9 Start Date: 01/01/23 Status: Ordered Problems Active Problems Problem Classification Problem Date Documented Da te Episodic/Chronic Anxiety disorders (16 sources) Mixed anxiety and depressive disorder; Translations: [Anxiety] 07-30-2020 Chronic Blindness and vision defects (16 sources) Wears glasses 11-26-2020 Episodic Cancer of bladder (8 sources) Malignant tumor of urinary bladder; Translations: [Malignant neoplasm of bladder, unspecified] Onset: 11-17-2022 Chronic Cardiac dysrhythmias (2 sources) Paroxysmal atrial fibrillation 03-27-2023 Chronic Chronic kidney disease (17 sources) Chronic kidney disease stage 3; Translations: [Chronic kidney disease] 09-18-2019 Chronic Past or Other Problems Problem Classification Problem Date Documented Da te Episodic/Chronic Neoplasms of unspecified nature or uncertain behavior (2 sources) Neoplasm of uncertain behavior of bladder; Translations: [Neoplasm of uncertain behavior of bladder] Onset: 11-17-2022 Episodic Superficial injury; contusion (2 sources) Contusion of abdominal wall, initial encounter; Translations: [Contusion of abdominal wall, initial encounter] Onset: 10-11-2022 Episodic Results Test Name Value Interpretation Reference Range Facil ity Vital Signs Date Time Vital Sign Value Performing Clinician Faci lity 11-17-2022 16:49-0400 Body temperature 97.52 [degF] DR DIONNE REY MD [facility] 11-17-2022 16:49-0400 Diastolic Blood Pressure Non-Invasive [address] DIONNE REY MD [facility] 11-17-2022 16:49-0400 Heart rate 54 /min DR DIONNE REY MD [facility] 11-17-2022 16:49-0400 Respiratory rate 16 /min DR DIONNE REY MD [facility] 11-17-2022 16:49-0400 Systolic Blood Pressure Non-Invasive [address] DIONNE REY MD [facility] 11-17-2022 16:16-0400 Diastolic Blood Pressure Non-Invasive [address] DIONNE REY MD [facility] 11-17-2022 16:16-0400 Respiratory rate 16 /min DR DIONNE REY MD [facility] 11-17-2022 16:16-0400 Systolic Blood Pressure Non-Invasive [address] DIONNE REY MD [facility] 11-17-2022 15:51-0400 Diastolic Blood Pressure Non-Invasive [address] DIONNE REY MD [facility] 11-17-2022 15:51-0400 Heart rate 52 /min DR DIONNE REY MD [facility] 11-17-2022 15:51-0400 Respiratory rate 17 /min DR DIONNE REY MD [facility] 11-17-2022 15:51-0400 Systolic Blood Pressure Non-Invasive [address] DIONNE REY MD [facility] 11-17-2022 15:34-0400 Heart rate 50 /min DR DIONNE REY MD [facility] 11-17-2022 15:31-0400 Heart rate 50 /min DR DIONNE REY MD [facility] 11-17-2022 14:50-0400 Body temperature 96.8 [degF] DR DIONNE REY MD [facility] 11-17-2022 14:45-0400 Respiratory Rate - Anes 14 br/min DR DIONNE REY MD [facility] 11-17-2022 14:40-0400 Respiratory Rate - Anes 17 br/min DR DIONNE REY MD [facility] 11-17-2022 14:35-0400 Respiratory Rate - Anes 17 br/min DR DIONNE REY MD [facility] 11-17-2022 12:38-0400 Body height 175.[address] DIONNE REY MD [facility] 11-17-2022 12:38-0400 Body temperature 97.52 [degF] DR DIONNE REY MD [facility] 11-17-2022 12:38-0400 Body weight 97.[address] DIONNE REY MD [facility] 11-17-2022 12:38-0400 Heart rate 71 /min DR DIONNE REY MD [facility] 11-03-2022 11:23-[address] DIONNE REY MD [facility] 11-03-2022 11:23-0400 Body height 175.[address] DIONNE REY MD [facility] 11-03-2022 11:23-0400 Body weight 97.[address] DIONNE REY MD [facility] 11-03-2022 11:23-0400 Body weight 31.79 kg/m2 DR DIONNE REY MD [facility] 11-03-2022 11:23-0400 Diastolic Blood Pressure Non-Invasive [address] DIONNE REY MD [facility] 11-03-2022 11:23-0400 Heart rate 67 /min DR DIONNE REY MD [facility] 11-03-2022 11:23-0400 Respiratory rate 20 /min DR DIONNE REY MD [facility] 11-03-2022 11:23-0400 Systolic Blood Pressure Non-Invasive [address] DIONNE REY MD [facility] Encounters Encounter Date Encounter Type Care Provider Facility Start: 05-03-2023 End: 05-04-2023 ambulatory DAYEVE BAGLEY PA-C Facility:B Start: 04-19-2023 End: 04-20-2023 ambulatory DAY BAGLEY PA-C Facility:B Start: 04-19-2023 End: 04-19-2023 Patient encounter procedure DAY BAGLEY PA-C [facility] Start: 04-06-2023 End: 04-07-2023 ambulatory HALKO DO Facility:B Start: 04-06-2023 End: 04-06-2023 Patient encounter procedure HALKO DO [facility] Start: 03-16-2023 End: 03-17-2023 ambulatory HALKO DO Facility:B Start: 03-16-2023 End: 03-16-2023 Patient encounter procedure HALKO DO [facility] Start: 03-01-2023 End: 03-02-2023 ambulatory DAYEVE BAGLEY PA-C Facility:B Start: 03-01-2023 End: 03-01-2023 Patient encounter procedure DAY BAGLEY PA-C [facility] Start: 02-26-2023 End: 02-27-2023 ambulatory HALKO DO Facility:B Start: 02-26-2023 End: 02-26-2023 Patient encounter procedure HALKO DO [facility] Start: 02-19-2023 End: 02-20-2023 ambulatory HALKO DO Facility:B Start: 02-19-2023 End: 02-19-2023 Patient encounter procedure HALKO DO [facility] Start: 01-04-2023 End: 01-05-2023 ambulatory HALKO DO Facility:B Start: 01-04-2023 End: 01-04-2023 Patient encounter procedure HALKO DO [facility] Start: 01-01-2023 End: 01-02-2023 ambulatory HALKO DO Facility:B Start: 11-17-2022 End: 11-17-[address] DIONNE REY MD Facility:B Start: 11-17-2022 End: 11-17-[address] DIONNE REY MD [facility] Start: 11-03-2022 End: 11-04-[address] DIONNE REY MD Facility:B Start: 11-03-2022 End: 11-03-[address] DIONNE REY MD [facility] Start: 10-24-2022 End: 10-25-2022 ambulatory HALKO DO Facility:B Start: 10-12-2022 End: 10-13-2022 ambulatory HALKO DO Facility:B Start: 10-12-2022 End: 10-12-2022 Patient encounter procedure HALKO DO [facility] Start: 10-11-2022 End: 10-16-2022 ambulatory HALKO DO Facility:B Start: 07-14-2022 End: 07-15-2022 ambulatory HALKO DO Facility:B Start: 07-14-2022 End: 07-14-2022 Patient encounter procedure HALKO DO [facility] Start: 04-11-2022 End: 04-11-[address] HERLINDA KILPATRICK MD [facility] Start: 03-14-2022 End: 03-14-2022 Patient encounter procedure MICHAEL MIDDLETON DO [facility] Start: 03-02-2022 End: 06-02-2022 Physical therapy management MICHAEL MIDDLETON DO [facility] Start: 02-24-2022 End: 02-24-2022 Patient encounter procedure MICHAEL MIDDLETON DO [facility] Start: 09-29-2021 End: 09-29-[address] HERLINDA KILPATRICK MD [facility] Procedures Date Procedure Procedure Detail Performing Clinician Start: 11-17-2022 TUR - electroresecti on of bladder DR DIONNE REY MD Start: 03-29-[address] HERLINDA KILPATRICK MD Immunizations Immunization Date Immunization Notes Care Provider Fa allison 04-13-2023 [id number](tozinam era n [id number])lilia BAGLEY PA-C [facility] [place] 04-12-2022 influenza virus vaccine, unspecified formulation MICHAEL MIDDLETON DO [facility] Payers Date Payer Category Payer Medicare [id number] 2022 Unknown [id number] 1940 Unknown [id number] 2.16.8 [id number] 1938 Unknown [id number] 2.16.8 [id number] 1938 Unknown [id number] 2.16.8 [id number] 1938 Unknown [id number] 2.16.8 40.1.841629.3.579.2.62 1938 Unknown [id number] 2.16.8 [id number] 1938 Unknown [id number] 2.16.8 [id number] 1938 Unknown [id number] 2.16.8 [id number] 1938 Unknown [id number] 2.16.8 40.1.759348.3.579.2.62 1938 Unknown [id number] 2.16.8 40.1.146277.3.579.2. 1938 Unknown [id number] 2.16.8 [id number] 1938 Unknown [id number] 2.16.8 40.1.639659.3.579.2.62 1938 Unknown [id number] 2.16.8 [id number] 1938 Unknown [id number] 2.16.8 40.1.540832.3.579.2.62 1938 Unknown [id number] 2.16.8 40.1.043654.3.579.2.62 1938 Unknown [id number] 2.16.8 40.1.753961.3.579.2.62 1938 Unknown [id number] 2.16.8 [id number] 1938 Unknown [id number] 2.16.8 [id number] Social History Date Type Detail Facility Start: 07-23-2019 End: 11-03-2022 Ex-smoker (finding) [facility] Procedure Code Equipment Code Equipment Origin al Text Equipment Identifier Dates Blood Glucose Te st Strips Start: 01-28-2020 one strip, Other , TID, check BGT 1x/day; dispense #100 Monica Contour test strips for 90 day supply, 3 refills; dx E11.9, # 100 EA, 3 Refill(s), [id number] 174, cm, 12/30/21 9:22:00 EDT, Height, 92.6, kg, 12/30/21 9:22:00 EDT, Dosing... Start: 12-30-2021 See Instructions , check BGT 1x/day, dipsense #100 Monica Contour test strips for 90 day supply, 3 refills; dx E11.9., # 100 EA, 3 Refill(s), [id number], 174, cm, 12/30/21 9:22:00 EDT, Height, 92.6 Start: 12-30-2021 one strip, Other , TID, check BGT 1x/day; dispense #100 Monica Contour test strips for 90 day supply, 3 refills; dx E11.9, # 100 EA, 3 Refill(s), Pharmacy: [facility]/pharmacy #[id number], 174, cm, 12/30/21 9:22:00 EDT, Height, 92.6, kg, 12/30/21 9:22:00 EDT, Dosing... Start: 12-30-2021 See Instructions , check BGT 1x/day, dipsense #100 Monica Contour test strips for 90 day supply, 3 refills; dx E11.9., # 100 EA, 3 Refill(s), Pharmacy: [facility]/pharmacy #[id number], 174, cm, 12/30/21 9:22:00 EDT, Height, 92.6 Start: 12-30-2021 one strip, Other , TID, check BGT 1x/day; dispense #100 Monica Contour test strips for 90 day supply, 3 refills; dx E11.9, # 100 EA, 3 Refill(s), Pharmacy: [facility]/pharmacy #[id number], 174, cm, 12/30/21 9:22:00 EDT, Height, 92.6, kg, 12/30/21 9:22:00 EDT, Dosing... Start: 12-30-2021 See Instructions , check BGT 1x/day, dipsense #100 Monica Contour test strips for 90 day supply, 3 refills; dx E11.9., # 100 EA, 3 Refill(s), [id number], 174, cm, 12/30/21 9:22:00 EDT, Height, 92.6 Start: 12-30-2021 one strip, Other , TID, check BGT 1x/day; dispense #100 Monica Contour test strips for 90 day supply, 3 refills; dx E11.9, # 100 EA, 3 Refill(s), Pharmacy: [facility] #[id number], 174, cm, 12/30/21 9:22:00 EDT, Height, 92.6, kg, 12/30/21 9:22:00 EDT, Dosing... Start: 12-30-2021 See Instructions , check BGT 1x/day, dipsense #100 Monica Contour test strips for 90 day supply, 3 refills; dx E11.9., # 100 EA, 3 Refill(s), [id number], 174, cm, 12/30/21 9:22:00 EDT, Height, 92.6 Start: 12-30-2021 one strip, Other , TID, check BGT 1x/day; dispense #100 Monica Contour test strips for 90 day supply, 3 refills; dx E11.9, # 100 EA, 3 Refill(s), [id number], 174, cm, 12/30/21 9:22:00 EDT, Height, 92.6, kg, 12/30/21 9:22:00 EDT, Dosing... Start: 12-30-2021 See Instructions , check BGT 1x/day, dipsense #100 Monica Contour test strips for 90 day supply, 3 refills; dx E11.9., # 100 EA, 3 Refill(s), [id number], 174, cm, 12/30/21 9:22:00 EDT, Height, 92.6 Start: 12-30-2021 one strip, Other , TID, check BGT 1x/day; dispense #100 Monica Contour test strips for 90 day supply, 3 refills; dx E11.9, # 100 EA, 3 Refill(s), Pharmacy: [facility]/pharmacy #[id number], 174, cm, 12/30/21 9:22:00 EDT, Height, 92.6, kg, 12/30/21 9:22:00 EDT, Dosing... Start: 12-30-2021 See Instructions , check BGT 1x/day, dipsense #100 Monica Contour test strips for 90 day supply, 3 refills; dx E11.9., # 100 EA, 3 Refill(s), Pharmacy: [facility]/pharmacy #[id number], 174, cm, 12/30/21 9:22:00 EDT, Height, 92.6 Start: 12-30-2021 one strip, Other , TID, check BGT 1x/day; dispense #100 Monica Contour test strips for 90 day supply, 3 refills; dx E11.9, # 100 EA, 3 Refill(s), Pharmacy: [facility]/pharmacy #[id number], 174, cm, 12/30/21 9:22:00 EDT, Height, 92.6, kg, 12/30/21 9:22:00 EDT, Dosing... Start: 12-30-2021 See Instructions , check BGT 1x/day, dipsense #100 Monica Contour test strips for 90 day supply, 3 refills; dx E11.9., # 100 EA, 3 Refill(s), Pharmacy: [facility]/pharmacy #[id number], 174, cm, 12/30/21 9:22:00 EDT, Height, 92.6 Start: 12-30-2021 one strip, Other , TID, check BGT 1x/day; dispense #100 Monica Contour test strips for 90 day supply, 3 refills; dx E11.9, # 100 EA, 3 Refill(s), Pharmacy: [facility]/pharmacy #[id number], 174, cm, 12/30/21 9:22:00 EDT, Height, 92.6, kg, 12/30/21 9:22:00 EDT, Dosing... Start: 12-30-2021 See Instructions , check BGT 1x/day, dipsense #100 Monica Contour test strips for 90 day supply, 3 refills; dx E11.9., # 100 EA, 3 Refill(s), [id number], 174, cm, 12/30/21 9:22:00 EDT, Height, 92.6 Start: 12-30-2021 See Instructions , dx E11.9, test BGT once daily; dispense #100 Monica contour test strips for 90 day supply, 3 refills, # 100 EA, 3 Refill(s), [id number], 175.3, cm, 11/17/22 13:00:00 EDT, Height, 97.7, kg, 11/17/22 13:00:00 EDT, Dosi... Start: 12-20-2022 See Instructions , check BGT 1x/day, dipsense #100 Monica Contour test strips for 90 day supply, 3 refills; dx E11.9., # 100 EA, 3 Refill(s), [id number], 174, cm, 12/30/21 9:22:00 EDT, Height, 92.6 Start: 12-30-2021 See Instructions , dx E11.9, test BGT once daily; dispense #100 Monica contour test strips for 90 day supply, 3 refills, # 100 EA, 3 Refill(s), [id number], 175.3, cm, 11/17/22 13:00:00 EDT, Height, 97.7, kg, 11/17/22 13:00:00 EDT, Dosing Weight Start: 12-20-2022 See Instructions , check BGT 2x/day, dipsense #100 Monica Contour test strips for 90 day supply, dx E11.9., # 200 EA, 0 Refill(s), [id number], 175, cm, 01/26/23 13:12:00 EDT, Height, 93.1, kg, 01/26/23 13:12:00 EDT, Dosing Weight Start: 02-16-2023 See Instructions , dx E11.9, test BGT once daily; dispense #100 Monica contour test strips for 90 day supply, 3 refills, # 100 EA, 3 Refill(s), [id number], 175.3, cm, 11/17/22 13:00:00 EDT, Height, 97.7, kg, 11/17/22 13:00:00 EDT, Dosing Weight Start: 12-20-2022 See Instructions , check BGT 2x/day, dipsense #200 Monica Contour test strips for 90 day supply, 3 refills, dx E11.65, Z79.4., # 200 EA, 3 Refill(s), Pharmacy: [facility] #4605, 175, cm, 02/20/23 11:40:00 EDT, Height, 99.4, kg, 02/20/23 11:40:00 EDT, Dosing Weight Start: 02-20-2023 See Instructions , dx E11.9, test BGT once daily; dispense #100 Monica contour test strips for 90 day supply, 3 refills, # 100 EA, 3 Refill(s), Pharmacy: [facility] #4605, 175.3, cm, 11/17/22 13:00:00 EDT, Height, 97.7, kg, 11/17/22 13:00:00 EDT, Dosing Weight Start: 12-20-2022 See Instructions , check BGT 2x/day, dipsense #200 Monica Contour test strips for 90 day supply, 3 refills, dx E11.65, Z79.4., # 200 EA, 3 Refill(s), Pharmacy: [facility] #4605, 175, cm, 02/20/23 11:40:00 EDT, Height, 99.4, kg, 02/20/23 11:40:00 EDT, Dosing Weight Start: 02-20-2023 See Instructions , dx E11.9, test BGT once daily; dispense #100 Monica contour test strips for 90 day supply, 3 refills, # 100 EA, 3 Refill(s), [id number], 175.3, cm, 11/17/22 13:00:00 EDT, Height, 97.7, kg, 11/17/22 13:00:00 EDT, Dosing Weight Start: 12-20-2022 See Instructions , check BGT 2x/day, dipsense #200 Monica Contour test strips for 90 day supply, 3 refills, dx E11.65, Z79.4., # 200 EA, 3 Refill(s), [id number], 175, cm, 02/20/23 11:40:00 EDT, Height, 99.4, kg, 02/20/23 11:40:00 EDT, Dosing Weight Start: 02-20-2023 See Instructions , dx E11.9, test BGT once daily; dispense #100 Monica contour test strips for 90 day supply, 3 refills, # 100 EA, 3 Refill(s), [id number], 175.3, cm, 11/17/22 13:00:00 EDT, Height, 97.7, kg, 11/17/22 13:00:00 EDT, Dosing Weight Start: 12-20-2022 See Instructions , check BGT 2x/day, dipsense #200 Monica Contour test strips for 90 day supply, 3 refills, dx E11.65, Z79.4., # 200 EA, 3 Refill(s), [id number], 175, cm, 02/20/23 11:40:00 EDT, Height, 99.4, kg, 02/20/23 11:40:00 EDT, Dosing Weight Start: 02-20-2023 See Instructions , dx E11.9, test BGT once daily; dispense #100 Monica contour test strips for 90 day supply, 3 refills, # 100 EA, 3 Refill(s), [id number], 175.3, cm, 11/17/22 13:00:00 EDT, Height, 97.7, kg, 11/17/22 13:00:00 EDT, Dosing Weight Start: 12-20-2022 See Instructions , check BGT 2x/day, dipsense #200 Monica Contour test strips for 90 day supply, 3 refills, dx E11.65, Z79.4., # 200 EA, 3 Refill(s), [id number], 175, cm, 02/20/23 11:40:00 EDT, Height, 99.4, kg, 02/20/23 11:40:00 EDT, Dosing Weight Start: 02-20-2023 Functional Status Date Assessment Result Facility 11-17-2022 Functional Status Awake [facility] 11-17-2022 Functional Status [facility] 11-17-2022 Functional Status Maintained [facility] 11-03-2022 Functional Status Sensory Deficits None A [facility] 03-02-2022 Functional Status Objective: Sensation: Grossly intact but slight decreased L4-L5 region/L lateral knee. Cardiovascular screen: O2 sat: 96% BP: 110/72 HR: 52 bpm Reflexes: Quads R:0+ L: 0+ Achilles R: 0+ L: 1+ Gait: L trendelenburg gait, RLE has mild circumduction and mild excess heel whip. Trunk AROM: Not tested Repeated Motion Testing: not tested Special Tests: Slump: - Hip Screen: Hip IR: see chart decreased on the L [facility] Mental Status Date Assessment Result Facility 11-17-2022 Mental Status Orientation Oriented x 4 [facility] 11-17-2022 Mental Status [facility] 03-14-2022 Mental Status Orientation Asse ssment Oriented x 4 [facility] Clinical Notes 11-17-2022 LaboratoryRadiologyLaboratoryRadiologyLaboratoryRadiologyLaboratoryRadiologyLabo ratoryRadiologyLaboratoryRadiologyLaboratoryRadiologyLaboratoryRadiologyLaborato ryRadiologyLaboratoryLaboratory Note Date & Type Note Facility 11-17-2022 Hospital Discharg e instructions Patient Education 11/17/2022 15:40:48 Ureteral Stent Implantation, Care After Ureteral Stent Implantation, Care After This sheet gives you information about how to care for yourself after your procedure. Your health care provider may also give you more specific instructions. If you have problems or questions, contact your health care provider. What can I expect after the procedure? After the procedure, it is common to have: Nausea. Mild pain when you urinate. You may feel this pain in your lower back or lower abdomen. The pain should stop within a few minutes after you urinate. This may last for up to 1 week. A small amount of blood in your urine for several days. Follow these instructions at home: Medicines Take aomo-kkf-gswvenk and prescription medicines only as told by your health care provider. If you were prescribed an antibiotic medicine, take it as told by your health care provider. Do not stop taking the antibiotic even if you start to feel better. Do not drive for 24 hours if you were given a sedative during your procedure. Ask your health care provider if the medicine prescribed to you requires you to avoid driving or using heavy machinery. Activity Rest as told by your health care provider. Avoid sitting for a long time without moving. Get up to take short walks every 1 2 hours. This is important to improve blood flow and breathing. Ask for help if you feel weak or unsteady. Return to your normal activities as told by your health care provider. Ask your health care provider what activities are safe for you. General instructions Watch for any blood in your urine. Call your health care provider if the amount of blood in your urine increases. If you have a catheter: ?Follow instructions from your health care provider about taking care of your catheter and collection bag. ?Do not take baths, swim, or use a hot tub until your health care provider approves. Ask your health care provider if you may take showers. You may only be allowed to take sponge baths. Drink enough fluid to keep your urine pale yellow. Do not use any products that contain nicotine or tobacco, such as cigarettes, e-cigarettes, and chewing tobacco. These can delay healing after surgery. If you need help quitting, ask your health care provider. Keep all follow-up visits as told by your health care provider. This is important. Contact a health care provider if: You have pain that gets worse or does not get better with medicine, especially pain when you urinate. You have difficulty urinating. You feel nauseous or you vomit repeatedly during a period of more than 2 days after the procedure. Get help right away if: Your urine is dark red or has blood clots in it. You are leaking urine (have incontinence). The end of the stent comes out of your urethra. You cannot urinate. You have sudden, sharp, or severe pain in your abdomen or lower back. You have a fever. You have swelling or pain in your legs. You have difficulty breathing. Summary After the procedure, it is common to have mild pain when you urinate that goes away within a few minutes after you urinate. This may last for up to 1 week. Watch for any blood in your urine. Call your health care provider if the amount of blood in your urine increases. Take soyx-osp-lxdnvke and prescription medicines only as told by your health care provider. Drink enough fluid to keep your urine pale yellow. This information is not intended to replace advice given to you by your health care provider. Make sure you discuss any questions you have with your health care provider. Document Released: 02/25/2014 Document Revised: 04/01/2019 Document Reviewed: 04/02/2019 [employer] Patient Education 2020 bright box. 11/17/2022 15:40:48 General Anesthesia, Adult, Care After General Anesthesia, Adult, Care After This sheet gives you information about how to care for yourself after your procedure. Your health care provider may also give you more specific instructions. If you have problems or questions, contact your health care provider. What can I expect after the procedure? After the procedure, the following side effects are common: Pain or discomfort at the IV site. Nausea. Vomiting. Sore throat. Trouble concentrating. Feeling cold or chills. Weak or tired. Sleepiness and fatigue. Soreness and body aches. These side effects can affect parts of the body that were not involved in surgery. Follow these instructions at home: For at least 24 hours after the procedure: Have a responsible adult stay with you. It is important to have someone help care for you until you are awake and alert. Rest as needed. Do not: ?Participate in activities in which you could fall or become injured. ?Drive. ?Use heavy machinery. ?Drink alcohol. ?Take sleeping pills or medicines that cause drowsiness. ?Make important decisions or sign legal documents. ?Take care of children on your own. Eating and drinking Follow any instructions from your health care provider about eating or drinking restrictions. When you feel hungry, start by eating small amounts of foods that are soft and easy to digest (bland), such as toast. Gradually return to your regular diet. Drink enough fluid to keep your urine pale yellow. If you vomit, rehydrate by drinking water, juice, or clear broth. General instructions If you have sleep apnea, surgery and certain medicines can increase your risk for breathing problems. Follow instructions from your health care provider about wearing your sleep device: ?Anytime you are sleeping, including during daytime naps. ?While taking prescription pain medicines, sleeping medicines, or medicines that make you drowsy. Return to your normal activities as told by your health care provider. Ask your health care provider what activities are safe for you. Take ftbu-zrf-vgcyybq and prescription medicines only as told by your health care provider. If you smoke, do not smoke without supervision. Keep all follow-up visits as told by your health care provider. This is important. Contact a health care provider if: You have nausea or vomiting that does not get better with medicine. You cannot eat or drink without vomiting. You have pain that does not get better with medicine. You are unable to pass urine. You develop a skin rash. You have a fever. You have redness around your IV site that gets worse. Get help right away if: You have difficulty breathing. You have chest pain. You have blood in your urine or stool, or you vomit blood. Summary After the procedure, it is common to have a sore throat or nausea. It is also common to feel tired. Have a responsible adult stay with you for the first 24 hours after general anesthesia. It is important to have someone help care for you until you are awake and alert. When you feel hungry, start by eating small amounts of foods that are soft and easy to digest (bland), such as toast. Gradually return to your regular diet. Drink enough fluid to keep your urine pale yellow. Return to your normal activities as told by your health care provider. Ask your health care provider what activities are safe for you. This information is not intended to replace advice given to you by your health care provider. Make sure you discuss any questions you have with your health care provider. Document Released: 10/01/2001 Document Revised: 06/28/2018 Document Reviewed: 02/08/2018 [employer] Patient Education 2020 bright box. 11/17/2022 15:39:26 Transurethral Resection of Bladder Tumor Transurethral Resection of Bladder Tumor Transurethral resection of a bladder tumor is the removal (resection) of a cancerous growth (tumor) on the inside wall of the bladder. The bladder is the organ that holds urine. The tumor is removed through the tube that carries urine out of the body (urethra). In a transurethral resection, a thin telescope with a light, a tiny camera, and an electric cutting edge (resectoscope) is passed through the urethra. In men, the opening of the urethra is at the end of the penis. In women, it is just above the opening of the vagina. Tell a health care provider about: Any allergies you have. All medicines you are taking, including vitamins, herbs, eye drops, creams, and udtd-wbb-nplgtqh medicines. Any problems you or family members have had with anesthetic medicines. Any blood disorders you have. Any surgeries you have had. Any medical conditions you have. Any recent urinary tract infections you have had. Whether you are or may be . What are the risks? Generally, this is a safe procedure. However, problems may occur, including: Infection. Bleeding. Allergic reactions to medicines. Damage to nearby structures or organs, such as: ?The urethra. ?The tubes that drain urine from the kidneys into the bladder (ureters). Pain and burning during urination. Difficulty urinating due to partial blockage of the urethra. Inability to urinate (urinary retention). What happens before the procedure? Staying hydrated Follow instructions from your health care provider about hydration, which may include: Up to 2 hours before the procedure you may continue to drink clear liquids, such as water, clear fruit juice, black coffee, and plain tea. Eating and drinking restrictions Follow instructions from your health care provider about eating and drinking, which may include: 8 hours before the procedure stop eating heavy meals or foods, such as meat, fried foods, or fatty foods. 6 hours before the procedure stop eating light meals or foods, such as toast or cereal. 6 hours before the procedure stop drinking milk or drinks that contain milk. 2 hours before the procedure stop drinking clear liquids. Medicines Ask your health care provider about: Changing or stopping your regular medicines. This is especially important if you are taking diabetes medicines or blood thinners. Taking medicines such as aspirin and ibuprofen. These medicines can thin your blood. Do not take these medicines unless your health care provider tells you to take them. Taking ayhw-rkz-yklndvv medicines, vitamins, herbs, and supplements. Tests You may have exams or tests, including: Physical exam. Blood tests. Urine tests. Electrocardiogram (ECG). This test measures the electrical activity of the heart. General instructions Plan to have someone take you home from the hospital or clinic. Ask your health care provider how your surgical site will be marked or identified. Ask your health care provider what steps will be taken to help prevent infection. These may include: ? Washing skin with a germ-killing soap. ? Taking antibiotic medicine. What happens during the procedure? An IV will be inserted into one of your veins. You will be given one or more of the following: ?A medicine to help you relax (sedative). ?A medicine to make you fall asleep (general anesthetic). ?A medicine that is injected into your spine to numb the area below and slightly above the injection site (spinal anesthetic). Your legs will be placed in foot rests (stirrups) so that your legs are apart and your knees are bent. The resectoscope will be passed through your urethra and into your bladder. The part of your bladder that is affected by the tumor will be resected using the cutting edge of the resectoscope. The resectoscope will be removed. A thin, flexible tube (catheter) will be passed through your urethra and into your bladder. The catheter will drain urine into a bag outside of your body. ?Fluid may be passed through the catheter to keep the catheter open. The procedure may vary among health care providers and hospitals. What happens after the procedure? Your blood pressure, heart rate, breathing rate, and blood oxygen level will be monitored until you leave the hospital or clinic. You may continue to receive fluids and medicines through an IV. You will have some pain. You will be given pain medicine to relieve pain. You will have a catheter to drain your urine. ?You will have blood in your urine. Your catheter may be kept in until your urine is clear. ?The amount of urine will be monitored. If necessary, your bladder may be rinsed out (irrigated) by passing fluid through your catheter. You will be encouraged to walk around as soon as possible. You may have to wear compression stockings. These stockings help to prevent blood clots and reduce swelling in your legs. Do not drive for 24 hours if you were given a sedative during your procedure. Summary Transurethral resection of a bladder tumor is the removal (resection) of a cancerous growth (tumor) on the inside wall of the bladder. To do this procedure, your health care provider uses a thin telescope with a light, a tiny camera, and an electric cutting edge (resectoscope). Follow your health care provider's instructions. You may need to stop or change certain medicines, and you may be told to stop eating and drinking several hours before the procedure. Your blood pressure, heart rate, breathing rate, and blood oxygen level will be monitored until you leave the hospital or clinic. You may have to wear compression stockings. These stockings help to prevent blood clots and reduce swelling in your legs. This information is not intended to replace advice given to you by your health care provider. Make sure you discuss any questions you have with your health care provider. Document Released: 04/21/2010 Document Revised: 01/24/2019 Document Reviewed: 01/24/2019 [employer] Patient Education 2020 bright box. Follow Up Care 10/24/2022 08:37:23 With:DIONNE REY MD, [employer] Address: [address] [place] [phone] When: Unknown Comments:Make an appointment to see Dr. Rey in 2 weeks from today. [facility] 11-17-2022 Summary of episod e note Discharge Instructions Thank you for allowing [facility] to assist you with your healthcare needs. The following is important discharge information regarding your hospital visit. Your Care Team MICHAEL MIDDLETON DO Your Diagnosis Bladder cancer What to do next Scheduled Follow-Up Appointments Appointment Type When With Where Contact InformationCV Procedure - [facility] Echo 11/29/2022 09:00 AM [facility] Radiology [phone] PC Well[facility] Medicare 01/01/2023 09:00 AM [facility] MICHAEL MIDDLETON DO [facility] Follow Up Appointments Follow Up with DIONNE REY MD, [employer] When Why: Make an appointment to see Dr. Rey in 2 weeks from today. Where: [address] [place] [phone] Allergies NKA Medications Please ask your primary doctor or pharmacist before taking any other medication not listed, including over the counter drugs, herbal medications, vitamins and or supplements as they may interact with your home medications. What How Much When Why Instructions Last Dose New acetaminophen-oxyCODONE (Endocet 2.5/ 325 oral tablet) 1 tab(s) by mouth Every 4 hours as needed for for pain Bladder cancer Duration: [address] [facility]/pharmacy #[id number] New ciprofloxacin (Cipro 500 mg oral tablet) 1 tab(s) by mouth Every 24 hours Duration: [address] [facility]/pharmacy #[id number] Unchanged ammonium lactate topical (ammonium lactate 12% topical cream) 1 application Topical Two (2) times a day Unchanged ascorbic acid (Vitamin C 500 mg oral tablet) 1 tab(s) by mouth Once a day Unchanged aspirin (aspirin 81 mg oral delayed release tablet) 1 tab(s) by mouth Every day Unchanged atorvastatin (atorvastatin 40 mg oral tablet) 1 tab(s) by mouth Once a day Duration: 90 Days Unchanged cholecalciferol (cholecalciferol 125 mcg (5000 intl units) oral capsule) 1 cap by mouth Once a day Duration: 90 Days Unchanged DME (Blood Glucose Test Strips) one strip Other Three (3) times a day check BGT 1x/ day; dispense #100 Monica Contour test strips for 90 day supply, 3 refills; dx E11.9 Unchanged DME (DME MISCellaneous) See instructions check BGT 1x/ day, dipsense #100 Monica Contour test strips for 90 day supply, 3 refills; dx E11.9. Unchanged empagliflozin (Jardiance 25 mg oral tablet) 1 tab(s) by mouth Once a day (in the morning) Duration: 90 Days Unchanged furosemide (Lasix 20 mg oral tablet) 1 tab(s) by mouth Once a day Unchanged glimepiride (glimepiride 4 mg oral tablet) 1 tab(s) by mouth Once a day Unchanged lisinopril (lisinopril 5 mg oral tablet) 1 tab(s) by mouth Every day Unchanged metFORMIN (metFORMIN 1000 mg oral tablet (IR)) 1 tab(s) by mouth Two (2) times a day Duration: 90 Days Unchanged metoprolol (Metoprolol Succinate ER 100 mg oral TABLET extended release) 1 tab(s) by mouth Once a day Duration: 90 Days Unchanged nitroGLYcerin (nitroglycerin 0.4 mg sublingual tablet) 1 tab(s) under the tongue Every 5 minutes as needed for for chest pain Unchanged pantoprazole (pantoprazole 40 mg oral enteric coated tablet) 1 tab(s) by mouth Once a day Duration: 90 Days Unchanged tamsulosin (tamsulosin 0.4 mg oral capsule) 2 cap by mouth Once a day Duration: 90 Days [address]acy Information [facility]/pharmacy #[id number]: [address], [place] [phone] Please take this list to your next doctor s visit. Bring all medications you take, including over the counter medications, herbals and other supplements with you to your doctor s visit. Patients and families are reminded to discard old lists and to update any records with all medication providers or retail pharmacies. Education [employer] Ureteral Stent Implantation, Care After This sheet gives you information about how to care for yourself after your procedure. Your health care provider may also give you more specific instructions. If you have problems or questions, contact your health care provider. What can I expect after the procedure? After the procedure, it is common to have: Nausea. Mild pain when you urinate. You may feel this pain in your lower back or lower abdomen. The pain should stop within a few minutes after you urinate. This may last for up to 1 week. A small amount of blood in your urine for several days. Follow these instructions at home: Medicines Take ghxi-wqg-humczfs and prescription medicines only as told by your health care provider. If you were prescribed an antibiotic medicine, take it as told by your health care provider. Do not stop taking the antibiotic even if you start to feel better. Do not drive for 24 hours if you were given a sedative during your procedure. Ask your health care provider if the medicine prescribed to you requires you to avoid driving or using heavy machinery. Activity Rest as told by your health care provider. Avoid sitting for a long time without moving. Get up to take short walks every 1 2 hours. This is important to improve blood flow and breathing. Ask for help if you feel weak or unsteady. Return to your normal activities as told by your health care provider. Ask your health care provider what activities are safe for you. General instructions Watch for any blood in your urine. Call your health care provider if the amount of blood in your urine increases. If you have a catheter: ? Follow instructions from your health care provider about taking care of your catheter and collection bag. ? Do not take baths, swim, or use a hot tub until your health care provider approves. Ask your health care provider if you may take showers. You may only be allowed to take sponge baths. Drink enough fluid to keep your urine pale yellow. Do not use any products that contain nicotine or tobacco, such as cigarettes, e-cigarettes, and chewing tobacco. These can delay healing after surgery. If you need help quitting, ask your health care provider. Keep all follow-up visits as told by your health care provider. This is important. Contact a health care provider if: You have pain that gets worse or does not get better with medicine, especially pain when you urinate. You have difficulty urinating. You feel nauseous or you vomit repeatedly during a period of more than 2 days after the procedure. Get help right away if: Your urine is dark red or has blood clots in it. You are leaking urine (have incontinence). The end of the stent comes out of your urethra. You cannot urinate. You have sudden, sharp, or severe pain in your abdomen or lower back. You have a fever. You have swelling or pain in your legs. You have difficulty breathing. Summary After the procedure, it is common to have mild pain when you urinate that goes away within a few minutes after you urinate. This may last for up to 1 week. Watch for any blood in your urine. Call your health care provider if the amount of blood in your urine increases. Take uctf-xgn-pbzbbqy and prescription medicines only as told by your health care provider. Drink enough fluid to keep your urine pale yellow. This information is not intended to replace advice given to you by your health care provider. Make sure you discuss any questions you have with your health care provider. Document Released: 02/25/2014 Document Revised: 04/01/2019 Document Reviewed: 04/02/2019 [employer] Patient Education 2020 bright box. General Anesthesia, Adult, Care After This sheet gives you information about how to care for yourself after your procedure. Your health care provider may also give you more specific instructions. If you have problems or questions, contact your health care provider. What can I expect after the procedure? After the procedure, the following side effects are common: Pain or discomfort at the IV site. Nausea. Vomiting. Sore throat. Trouble concentrating. Feeling cold or chills. Weak or tired. Sleepiness and fatigue. Soreness and body aches. These side effects can affect parts of the body that were not involved in surgery. Follow these instructions at home: For at least 24 hours after the procedure: Have a responsible adult stay with you. It is important to have someone help care for you until you are awake and alert. Rest as needed. Do not: ? Participate in activities in which you could fall or become injured. ? Drive. ? Use heavy machinery. ? Drink alcohol. ? Take sleeping pills or medicines that cause drowsiness. ? Make important decisions or sign legal documents. ? Take care of children on your own. Eating and drinking Follow any instructions from your health care provider about eating or drinking restrictions. When you feel hungry, start by eating small amounts of foods that are soft and easy to digest (bland), such as toast. Gradually return to your regular diet. Drink enough fluid to keep your urine pale yellow. If you vomit, rehydrate by drinking water, juice, or clear broth. General instructions If you have sleep apnea, surgery and certain medicines can increase your risk for breathing problems. Follow instructions from your health care provider about wearing your sleep device: ? Anytime you are sleeping, including during daytime naps. ? While taking prescription pain medicines, sleeping medicines, or medicines that make you drowsy. Return to your normal activities as told by your health care provider. Ask your health care provider what activities are safe for you. Take jsof-sck-nukjoic and prescription medicines only as told by your health care provider. If you smoke, do not smoke without supervision. Keep all follow-up visits as told by your health care provider. This is important. Contact a health care provider if: You have nausea or vomiting that does not get better with medicine. You cannot eat or drink without vomiting. You have pain that does not get better with medicine. You are unable to pass urine. You develop a skin rash. You have a fever. You have redness around your IV site that gets worse. Get help right away if: You have difficulty breathing. You have chest pain. You have blood in your urine or stool, or you vomit blood. Summary After the procedure, it is common to have a sore throat or nausea. It is also common to feel tired. Have a responsible adult stay with you for the first 24 hours after general anesthesia. It is important to have someone help care for you until you are awake and alert. When you feel hungry, start by eating small amounts of foods that are soft and easy to digest (bland), such as toast. Gradually return to your regular diet. Drink enough fluid to keep your urine pale yellow. Return to your normal activities as told by your health care provider. Ask your health care provider what activities are safe for you. This information is not intended to replace advice given to you by your health care provider. Make sure you discuss any questions you have with your health care provider. Document Released: 10/01/2001 Document Revised: 06/28/2018 Document Reviewed: 02/08/2018 [employer] Patient Education 2020 bright box. Transurethral Resection of Bladder Tumor Transurethral resection of a bladder tumor is the removal (resection) of a cancerous growth (tumor) on the inside wall of the bladder. The bladder is the organ that holds urine. The tumor is removed through the tube that carries urine out of the body (urethra). In a transurethral resection, a thin telescope with a light, a tiny camera, and an electric cutting edge (resectoscope) is passed through the urethra. In men, the opening of the urethra is at the end of the penis. In women, it is just above the opening of the vagina. Tell a health care provider about: Any allergies you have. All medicines you are taking, including vitamins, herbs, eye drops, creams, and dzan-btq-eakyodb medicines. Any problems you or family members have had with anesthetic medicines. Any blood disorders you have. Any surgeries you have had. Any medical conditions you have. Any recent urinary tract infections you have had. Whether you are or may be . What are the risks? Generally, this is a safe procedure. However, problems may occur, including: Infection. Bleeding. Allergic reactions to medicines. Damage to nearby structures or organs, such as: ? The urethra. ? The tubes that drain urine from the kidneys into the bladder (ureters). Pain and burning during urination. Difficulty urinating due to partial blockage of the urethra. Inability to urinate (urinary retention). What happens before the procedure? Staying hydrated Follow instructions from your health care provider about hydration, which may include: Up to 2 hours before the procedure you may continue to drink clear liquids, such as water, clear fruit juice, black coffee, and plain tea. Eating and drinking restrictions Follow instructions from your health care provider about eating and drinking, which may include: 8 hours before the procedure stop eating heavy meals or foods, such as meat, fried foods, or fatty foods. 6 hours before the procedure stop eating light meals or foods, such as toast or cereal. 6 hours before the procedure stop drinking milk or drinks that contain milk. 2 hours before the procedure stop drinking clear liquids. Medicines Ask your health care provider about: Changing or stopping your regular medicines. This is especially important if you are taking diabetes medicines or blood thinners. Taking medicines such as aspirin and ibuprofen. These medicines can thin your blood. Do not take these medicines unless your health care provider tells you to take them. Taking kfwk-lig-lknptwu medicines, vitamins, herbs, and supplements. Tests You may have exams or tests, including: Physical exam. Blood tests. Urine tests. Electrocardiogram (ECG). This test measures the electrical activity of the heart. General instructions Plan to have someone take you home from the hospital or clinic. Ask your health care provider how your surgical site will be marked or identified. Ask your health care provider what steps will be taken to help prevent infection. These may include: ? Washing skin with a germ-killing soap. ? Taking antibiotic medicine. What happens during the procedure? An IV will be inserted into one of your veins. You will be given one or more of the following: ? A medicine to help you relax (sedative). ? A medicine to make you fall asleep (general anesthetic). ? A medicine that is injected into your spine to numb the area below and slightly above the injection site (spinal anesthetic). Your legs will be placed in foot rests (stirrups) so that your legs are apart and your knees are bent. The resectoscope will be passed through your urethra and into your bladder. The part of your bladder that is affected by the tumor will be resected using the cutting edge of the resectoscope. The resectoscope will be removed. A thin, flexible tube (catheter) will be passed through your urethra and into your bladder. The catheter will drain urine into a bag outside of your body. ? Fluid may be passed through the catheter to keep the catheter open. The procedure may vary among health care providers and hospitals. What happens after the procedure? Your blood pressure, heart rate, breathing rate, and blood oxygen level will be monitored until you leave the hospital or clinic. You may continue to receive fluids and medicines through an IV. You will have some pain. You will be given pain medicine to relieve pain. You will have a catheter to drain your urine. ? You will have blood in your urine. Your catheter may be kept in until your urine is clear. ? The amount of urine will be monitored. If necessary, your bladder may be rinsed out (irrigated) by passing fluid through your catheter. You will be encouraged to walk around as soon as possible. You may have to wear compression stockings. These stockings help to prevent blood clots and reduce swelling in your legs. Do not drive for 24 hours if you were given a sedative during your procedure. Summary Transurethral resection of a bladder tumor is the removal (resection) of a cancerous growth (tumor) on the inside wall of the bladder. To do this procedure, your health care provider uses a thin telescope with a light, a tiny camera, and an electric cutting edge (resectoscope). Follow your health care provider's instructions. You may need to stop or change certain medicines, and you may be told to stop eating and drinking several hours before the procedure. Your blood pressure, heart rate, breathing rate, and blood oxygen level will be monitored until you leave the hospital or clinic. You may have to wear compression stockings. These stockings help to prevent blood clots and reduce swelling in your legs. This information is not intended to replace advice given to you by your health care provider. Make sure you discuss any questions you have with your health care provider. Document Released: 04/21/2010 Document Revised: 01/24/2019 Document Reviewed: 01/24/2019 [employer] Patient Education 2020 bright box. Additional Information VACCINATE! IT SAVES LIVES! Members of the community who have not yet received the COVID-19 vaccine and would like to receive it can visit one of [facility] vaccine clinics. There are many vaccine clinic locations within the [facility]. For locations and available times, please visit https://gettheshot.coronavirus.[place].gov/. It is important to note that some COVID mobile vaccine clinics are held outdoors and may be canceled in rainy or stormy conditions. To learn more about pediatric vaccinations (ages 5-11), we invite you to visit the [facility] webpage. [email or web address] To learn more about the COVID-19 vaccine, we invite you to visit the CDC website for a list of frequently asked questions.https://www.cdc.gov/cor onavirus/2019-ncov/vaccines/faq.h tml [employer] Patient Portal Access Instructions: Stay connected with your healthcare team and access your personal medical information anytime with the [employer] Patient Portal. Please follow the directions below to create your [employer] account: 1.Access the email account you provided upon registration to the hospital/physician office.2.Look for an invitation email from [facility].3.Open the email and access the invitation link: Accept Invitation to [employer].4.Fill in the required malin to create your account. To access your account, visit [email or web address]. Click the blue button labeled Access Patient Portal and then log in with the username and password that you created in the steps above. You will be able to view your test results, lab results, a summary of your visits, upcoming appointments and more. There is also a convenient messaging option where you can send secure messages to your provider. In addition, you will have the ability to download any documents or summaries to your computer and/or send the information securely to a physician. Remember that your healthcare information is confidential, so carefully consider who you will allow to register on the [employer] Patient Portal for access to your information. You can also access the [employer] Patient Portal on the [employer] johana. Simply click on Patient Portal and then log into your account. If you would like to receive a full copy of your medical records, please contact the [facility] Medical Records Department by calling [phone], Sunday through Sunday between 8 a.m. and 4:30 p.m. HOW TO SAFELY DISPOSE OF PRESCRIPTION MEDICATIONS Please use one of the following methods to safely dispose of your unused medications. 1.Use a drug disposal kit: the drug disposal pouch allows you to safely discard your old and unused drugs. Ask your nurse to give you one when you are discharged.2.Visit a local take-back location: Many local pharmacies and police departments have programs that collect old and unwanted prescription drugs. Call your local pharmacy or go to http://bit.[employer]2H0Ta2h to find one close to you.3.Make use of household items: Use cat litter or old coffee grounds to dispose medications if other options are not available. Mix your drugs with these household products, seal them in an airtight container and throw it into the garbage. Call [facility]: [phone] to be sure your drugs can be disposed of in this way. Some medicines may require a different approach.4.Never flush your medications down the toilet. IF YOU HAVE BEEN PRESCRIBED AN OPIOID FOR PAIN If you have been prescribed an opioid (such as hydrocodone, oxycodone or morphine), it is critical to understand the possible side effects and risks of opioid pain medications. Even when taken as directed, opioids can have several side effects including: Tolerance, meaning you might need to take more of a medication for the same pain relief. Nausea, vomiting and/or constipation. Sleepiness, dizziness, dry mouth, confusion, depression or itching. Physical dependence, meaning you have withdrawal symptoms when a medication is stopped, can develop within a few days. KNOW YOUR RESPONSIBILITIES It is important to know exactly how much and how often to take the opioid pain medications you are prescribed. Never take opioids in higher amounts or more often than prescribed. Do not combine opioids with alcohol or other drugs that cause drowsiness, such as benzodiazepines, also known as benzos, including diazepam and alprazolam, muscle relaxants or sleep aids. Never sell or share prescription opioids. This is illegal. Store opioids in a secure place and out of reach of others (including children, family, friends and visitors). The last page of this document has been signed and retained as a CHART COPY. Signatures Patient Education Materials Ureteral Stent Implantation, Care After General Anesthesia, Adult, Care After Transurethral Resection of Bladder Tumor Medication Leaflets My discharge plan and instructions have been reviewed and explained to me and ICARINA JAMES E understand my current condition and have read and understand these discharge instructions. I have received a written copy of the plan/instructions. If I have questions, I am aware that I should contact my doctor. Patient/Chlorinator Signature: Date/Time: Relationship to Patient: ____ Witness Name/Signature: Date/Time: [facility] 11-17-2022 Anesthesiology Consult note Patient: MIREYA LIM Age: 82 years Sex: Male : 1940 Associated Diagnoses: None Author: WILLIAM RUEDA Assessment Postanesthesia assessment Vitals: Reviewed Results: Vital signs from flowsheet : Vital Signs(Date Range: 11/16/2022 0:00 EDT - 11/17/2022 14:53 EDT) . Mental status: at preoperative baseline, alert & oriented x 4. Respiratory function: lungs are clear to auscultation. Respiratory support: none. CV function: Normal rate. Cardiovascular support: none. Pain. Nausea status: denies nausea. Postoperative hydration status: within normal limits. Digitally Signed by WILLIAM RUEDA on 11/17/2022 02:54 PM [facility] 11-17-2022 Anesthesiology Consult note Patient: MIREYA LIM Age: 82 years Sex: Male : 1940 Associated Diagnoses: None Author: WILLIAM RUEDA Preoperative Information Time of last food or liquid consumption: 11/17/2022 00:00:00 Anesthesia history Patient's history: negative. Family's history: negative. Health Status Allergies: Allergic Reactions (Selected) NKA, Allergies (1) ActiveReaction NKANone Documented Current medications: (Selected) Inpatient Medications Ordered Kefzol: 1 gram(s), 200 mL/hr, IV Piggyback, PREOP pharm NS 1,000 mL: 75 mL/hr, Intravenous, Stop: 11/17/22 23:59:00 EDT Prescriptions Prescribed Blood Glucose Test Strips: one strip, Other, TID, check BGT 1x/day; dispense #100 Monica Contour test strips for 90 day supply, 3 refills; dx E11.9, 100 EA, 3 Refill(s) DME MISCellaneous: See Instructions, check BGT 1x/day, dipsense #100 Monica Contour test strips for 90 day supply, 3 refills; dx E11.9., 100 EA, 3 Refill(s) Jardiance 25 mg oral tablet: 25 mg, 1 tab(s), Oral, qAM, for 90 day(s), 90 tab(s), 1 Refill(s) Lasix 20 mg oral tablet: 20 mg, 1 tab(s), Oral, qDay, 90 tab(s), 3 Refill(s) Metoprolol Succinate ER 100 mg oral TABLET extended release: 100 mg, 1 tab(s), Oral, qDay, for 90 day(s), 90 tab(s), 1 Refill(s) ammonium lactate 12% topical cream: 1 johana, Topical, BID, 385 gram(s), 1 Refill(s) atorvastatin 40 mg oral tablet: 40 mg, 1 tab(s), Oral, qDay, for 90 day(s), 90 tab(s), 1 Refill(s) cholecalciferol 125 mcg (5000 intl units) oral capsule: 5,000 International_Unit, 1 cap(s), Oral, qDay, for 90 day(s), 90 cap(s), 1 Refill(s) glimepiride 4 mg oral tablet: 4 mg, 1 tab(s), Oral, qDay, 90 tab(s), 0 Refill(s) metFORMIN 1000 mg oral tablet (IR): 1,000 mg, 1 tab(s), Oral, BID, for 90 day(s), 180 tab(s), 1 Refill(s) nitroglycerin 0.4 mg sublingual tablet: 0.4 mg, 1 tab(s), Sublingual, q5min, PRN: for chest pain, 25 tab(s), 2 Refill(s) pantoprazole 40 mg oral enteric coated tablet: 40 mg, 1 tab(s), Oral, qDay, for 90 day(s), 90 tab(s), 1 Refill(s) tamsulosin 0.4 mg oral capsule: 0.8 mg, 2 cap(s), Oral, qDay, for 90 day(s), 180 cap(s), 1 Refill(s) Documented Medications Documented Vitamin C 500 mg oral tablet: 500 mg, 1 tab(s), Oral, qDay, 0 Refill(s) aspirin 81 mg oral delayed release tablet: 81 mg, 1 tab(s), Oral, Daily, 0 Refill(s) lisinopril 5 mg oral tablet: 5 mg, 1 tab(s), Oral, Daily, 0 Refill(s), Medications (2) Active Scheduled: (1) ceFAZolin 1 gram(s), IV Piggyback, PREOP pharm Continuous: (1) NS (0.9% nacl) 1,000 mL 1,000 mL, Intravenous, 75 mL/hr PRN: (0) Problem list: Medical Abnormal gait / SNOMED CT 80354041 / Confirmed Anxiety / SNOMED CT 35954303 / Confirmed Arthritis of left shoulder region / SNOMED CT 1622986219 / Confirmed Risk for falls / SNOMED CT 608818595 / Confirmed BPH with obstruction/lower urinary tract symptoms / SNOMED CT 4459166847 / Confirmed BMI 32.0-32.9,adult / SNOMED CT 971053885 / Confirmed Easy bruising / SNOMED CT 4656986430 / Confirmed CHRONIC DIASTOLIC CHF (CONGESTIVE HEART FAILURE) (Renamed from CHRONIC DIASTOLIC (CONGESTIVE) HEART FAILURE) / SNOMED CT 9055433733 / Confirmed CKD (CHRONIC KIDNEY DISEASE), STAGE III (Renamed from STAGE 3 CHRONIC KIDNEY DISEASE) / SNOMED CT 1855935955 / Confirmed CAD (coronary artery disease) / SNOMED CT 41178429 / Confirmed DDD (degenerative disc disease), lumbar / SNOMED CT 28104886 / Confirmed Diabetic nephropathy / SNOMED CT 9303321891 / Confirmed Dupuytren's contracture / SNOMED CT 292654614 / Confirmed DYSLIPIDEMIA / SNOMED CT 2088488823 / Confirmed Dysphagia / SNOMED CT 70845439 / Confirmed Rash / SNOMED CT 526611046 / Confirmed Former smoker / SNOMED CT 87642781 / Confirmed GERD (gastroesophageal reflux disease) / SNOMED CT 488460501 / Confirmed Previous back surgery / SNOMED CT 850312479 / Confirmed S/P CABG x 4 / SNOMED CT 5729529427 / Confirmed Hypertension associated with diabetes / SNOMED CT 3956678653 / Confirmed 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 / SNOMED CT 181456878 / Confirmed LVH (left ventricular hypertrophy) due to hypertensive disease / SNOMED CT 4186473934 / Confirmed Immunization due / SNOMED CT 881840834 / Confirmed Itching / SNOMED CT 3656276672 / Confirmed LVH (left ventricular hypertrophy) / SNOMED CT 28134589 / Confirmed Low back pain / SNOMED CT 846684318 / Confirmed Major depression in full remission / SNOMED CT 7236405704 / Confirmed Moderate aortic regurgitation / SNOMED CT 4277955442 / Confirmed Nocturia / SNOMED CT 098040697 / Confirmed Obese / SNOMED CT 0918016868 / Confirmed Medicare annual wellness visit, subsequent / SNOMED CT 245034548 / Confirmed Screening for cardiovascular condition / SNOMED CT 260646918 / Confirmed Osteoporosis screening / SNOMED CT 915283530 / Confirmed Glaucoma screening / SNOMED CT 089622592 / Confirmed Encounter for screening involving social determinants of health (SDoH) / SNOMED CT 550494464 / Confirmed Screening for prostate cancer / SNOMED CT 890094833 / Confirmed Screening for depression / SNOMED CT 284535819 / Confirmed Diabetic retinopathy / SNOMED CT 2629124784 / Confirmed Secondary hyperaldosteronism / SNOMED CT 3080819544 / Confirmed Left shoulder pain / SNOMED CT 96252246 / Confirmed Somatic dysfunction of pelvic region / SNOMED CT 0341564168 / Confirmed Somatic dysfunction of rib region / SNOMED CT 9257031596 / Confirmed Somatic dysfunction of sacral region / SNOMED CT 3361819159 / Confirmed Type 2 diabetes mellitus with hyperlipidemia / SNOMED CT 843385522 / Confirmed Uncontrolled type 2 diabetes mellitus with hyperglycemia / SNOMED CT 6669922874 / Confirmed Need for hepatitis C screening test / SNOMED CT 238659105 / Confirmed Vitamin D deficiency / SNOMED CT 86035299 / Confirmed Wears glasses / SNOMED CT 410977978 / Confirmed, Active Problems (55) Abnormal gait Anxiety Arthritis of left shoulder region BMI 32.0-32.9,adult BPH with obstruction/lower urinary tract symptoms Bronchitis CAD (coronary artery disease) Chest pain CHF (congestive heart failure) CHRONIC DIASTOLIC CHF (CONGESTIVE HEART FAILURE) (Renamed from CHRONIC DIASTOLIC (CONGESTIVE) HEART CKD (CHRONIC KIDNEY DISEASE), STAGE III (Renamed from STAGE 3 CHRONIC KIDNEY DISEASE) COPD (chronic obstructive pulmonary disease) DDD (degenerative disc disease), lumbar Diabetic nephropathy Diabetic retinopathy Dupuytren's contracture DYSLIPIDEMIA Dysphagia Dyspnea Easy bruising Encounter for screening involving social determinants of health (SDoH) Failed CABG (coronary artery bypass graft) Former smoker GERD (gastroesophageal reflux disease) Glaucoma screening Hypertension associated with diabetes 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 Immunization due Itching Left shoulder pain Low back pain LVH (left ventricular hypertrophy) LVH (left ventricular hypertrophy) due to hypertensive disease Major depression in full remission Medicare annual wellness visit, subsequent Moderate aortic regurgitation Need for hepatitis C screening test Nocturia Obese Osteoporosis screening Previous back surgery Rash Risk for falls S/P CABG x 4 Screening for cardiovascular condition Screening for depression Screening for prostate cancer Secondary hyperaldosteronism Somatic dysfunction of pelvic region Somatic dysfunction of rib region Somatic dysfunction of sacral region Type 2 diabetes mellitus with hyperlipidemia Uncontrolled type 2 diabetes mellitus with hyperglycemia Vitamin D deficiency Wears glasses Histories Past Medical History: No active or resolved past medical history items have been selected or recorded., HTN, CHF, CAD, sp CABG, MA, stent, COPD, stage 3 CKD, NIDDM Family History: Cardiac pacemaker Father Heart disease Brother Father Procedure history: CE - Cataract extraction ([id number]) on 03/29/2021 at 80 Years. Comments: 04/06/2021 10:28 Giovanna Hayward MA (ABR-OE) Right Echocardiogram ([id number]) on 09/29/2020 at 80 Years. Comments: 03/31/2021 10:19 Katya Sanchez MA (ABR-OE) EF 55% Placement of stent ([id number]) on 11/19/2018 at 78 Years. Echocardiogram ([id number]) on 11/19/2018 at 78 Years. CABG x 4 - Coronary artery bypass grafts x 4 ([id number]) on 11/11/2018 at 78 Years. Comments: 11/12/2018 21:55 SIERRAT - Deacon Agarwal RN Using SMITH and Left SAPH Cardiac catheterization ([id number]) on 11/08/2018 at 78 Years. Cardiovascular stress testing ([id number]) on 11/06/2018 at 78 Years. Disc ([id number]) in the month of 08/2002 at 62 Years. Comments: 11/03/2022 12:04 Antonette Hough RN [id number] 11/07/2018 21:25 SUKHJINDER Pimentel RN Anamika repair Femur ([id number]). Comments: 11/03/2022 12:04 EDT - Antonette Myers RN ORIF Left Social History Social & Psychosocial Habits Alcohol 12/30/2021 Use: Never Type: Wine Frequency: 1-2 times per month Substance Abuse 11/08/2018 Use: Never Tobacco 11/03/2022 Tobacco Use: Former smoker, quit more Type: Cigarettes Number of years: 12 Stopped at age: 28 Years Comment: no smoke exposure - 07/23/2019 08:10 - Yesica Upton RN Home/Environment 11/03/2022 Domestic Concerns None Living situation: Home/Independent Primary Manager Of Training: Self Current Home Treatments Blood Glucose monitoring Special Services and Community Resources None Other risks in environment: no smoke exposure Spouse Name Geetha Marital Status of Patient if Patient Independent Adult: Nutrition/Health 11/03/2022 Type of diet: Regular Appetite Fair Eating Difficulties Swallowing Caffeine intake amount: none . Physical Examination Vital Signs 11/17/2022 12:38 EDT Temperature Temporal Artery 36.4 DegC Apical Heart Rate 71 bpm Respiratory Rate 18 br/min Systolic Blood Pressure Non-Invasive 148 mmHg HI Diastolic Blood Pressure Non-Invasive 78 mmHg Vital Signs(last 24 hrs) Last Charted Resp Rate 18 br/min (NOVEMBER 17 12:38) SBPH 148mmHg (NOVEMBER 17 12:38) DBP78 mmHg (NOVEMBER 17 12:38) General: Alert and oriented. Airway: Normal temporomandibular joint mobility. Mallampati classification: II (soft palate, fauces, uvula visible). Head: Normocephalic. Dentition Evaluation: Dentures, partial plate. Neck: Supple. Respiratory: Lungs are clear to auscultation. Cardiovascular: Normal rate. Heart Sounds: Normal. Gastrointestinal: Soft. Musculoskeletal Normal range of motion. Integumentary: Intact. Neurologic: Alert. Review / Management Results review: No qualifying data available , Lab results 11/17/2022 12:40 EDT SN - Preop - CTm Pt in SDS Room 11/17/2022 12:38 11/17/2022 12:39 EDT Infectious Disease Symptoms Patient states no symptoms Safety Brochure Information Reviewed Unable to complete [employer] Video Viewed No Teaching Evaluation No further teaching needed Admission Note-Nursing Same Day Patient History (Modified) 11/17/2022 12:38 EDT Temperature Temporal Artery 36.4 DegC Apical Heart Rate 71 bpm Respiratory Rate 18 br/min Systolic Blood Pressure Non-Invasive 148 mmHg HI Diastolic Blood Pressure Non-Invasive 78 mmHg Heart Sounds ICU S1S2 Heart Rhythm Regular Oxygen Therapy Room air Oxygen Saturation 95 % . Assessment and Plan [place] [employer] Anesthesiologists (ASA) physical status classification: Class IV. Anesthetic Preoperative Plan Premedication: intravenous. Anesthetic technique: General. Induction: intravenously. Maintenance airway: Laryngeal mask airway. Postoperative pain management: Per surgeon. Risks discussed: nausea, vomiting, headache, sore throat, dental injury, hypotension, allergic reaction, serious complications. Informed consent: signed by patient. Digitally Signed by WILLIAM RUEDA on 11/17/2022 12:45 PM [facility] Evaluation + Plan note Future Appointments Appointment Date:10/07/2021 10:30:00 AM Scheduled Provider: [facility] Appointment Type:CV OV Appointment Date:12/30/2021 09:30:00 AM Scheduled Provider:MICHAEL MIDDLETON DO Location:[facility] Appointment Type:PC Wellness Medicare Future Scheduled TestsBasic Metabolic Panel 04/13/21Thyroid Stimulating Hormone 07/29/21Complete Blood Count 07/29/21Lipid Profile 07/29/21Microalbumin Level Urine 07/29/21Vitamin D Level 07/29/21Complete Metabolic Panel 07/29/21XR Pelvis 1 or 2 Views 07/29/21XR Spine Lumbar AP/LAT/FLEX/EXT 07/29/21 [facility] Evaluation + Plan note Future Appointments Appointment Date:04/13/2022 09:30:00 AM Scheduled Provider:MICHAEL MIDDLETON DO [facility] Type: OV Future Scheduled TestsBasic Metabolic Panel 04/13/21Prostate Specific Antigen 12/30/21Thyroid Stimulating Hormone 07/29/21Complete Blood Count 07/29/21Lipid Profile 04/08/22Lipid Profile 07/29/21Microalbumin Level Urine 07/29/21Vitamin D Level 07/29/21Complete Metabolic Panel 07/29/21N-Terminal proBNP 04/08/22XR Pelvis 1 or 2 Views 07/29/21XR Swallowing Function 02/23/22XR Spine Lumbar AP/LAT/FLEX/EXT 07/29/21XR Spine Lumbar W/Obliques 4 Views 12/30/21 [facility] Evaluation + Plan note Future Appointments Appointment Date:03/15/2022 09:00:00 AM Scheduled Provider: Location:[facility] Appointment Type:PT Treatment - [place] Appointment Date:03/17/2022 09:00:00 AM Scheduled Provider: Location:[facility] Appointment Type:PT Treatment - [place] Appointment Date:03/24/2022 11:00:00 AM Scheduled Provider: Location:[facility] Appointment Type:PT Treatment - [place] Appointment Date:03/27/2022 11:00:00 AM Scheduled Provider: Location:[facility] Appointment Type:PT Treatment - [place] Appointment Date:03/31/2022 11:00:00 AM Scheduled Provider: Location:[facility] Appointment Type:PT Treatment - [place] Appointment Date:04/05/2022 11:00:00 AM Scheduled Provider: Location:[facility] Appointment Type:PT Treatment - [place] Appointment Date:04/13/2022 09:30:00 AM Scheduled Provider:MICHAEL MIDDLETON DO Location:[facility] Appointment Type: OV Future Scheduled TestsBasic Metabolic Panel 04/13/21Prostate Specific Antigen 12/30/21Thyroid Stimulating Hormone 07/29/21Complete Blood Count 07/29/21Lipid Profile 04/08/22Lipid Profile 07/29/21Microalbumin Level Urine 07/29/21Vitamin D Level 07/29/21Complete Metabolic Panel 07/29/21N-Terminal proBNP 04/08/22XR Pelvis 1 or 2 Views 07/29/21XR Spine Lumbar AP/LAT/FLEX/EXT 07/29/21XR Spine Lumbar W/Obliques 4 Views 12/30/21 [facility] Evaluation + Plan note Future Appointments Appointment Date:04/12/2022 11:00:00 AM Scheduled Provider: Location:[facility] Appointment Type:PT Treatment - [place] Appointment Date:04/13/2022 09:30:00 AM Scheduled Provider:MICHAEL MIDDLETON DO Location:[facility] Appointment Type:PC OV Future Scheduled TestsBasic Metabolic Panel 04/13/21Prostate Specific Antigen 12/30/21Thyroid Stimulating Hormone 07/29/21Complete Blood Count 07/29/21Lipid Profile 07/29/21Microalbumin Level Urine 07/29/21Vitamin D Level 07/29/21Complete Metabolic Panel 07/29/21XR Pelvis 1 or 2 Views 07/29/21XR Spine Lumbar AP/LAT/FLEX/EXT 07/29/21XR Spine Lumbar W/Obliques 4 Views 12/30/21 [facility] Evaluation + Plan note Future Appointments Appointment Date:07/13/2022 09:00:00 AM Scheduled Provider:MICHAEL MIDDLETON DO [facility] Appointment Type:PC OV Future Scheduled TestsProstate Specific Antigen 12/30/21Thyroid Stimulating Hormone 04/13/22Complete Blood Count 04/13/22Lipid Profile 04/13/22Microalbumin Level Urine 04/13/22Vitamin D Level 04/13/22Complete Metabolic Panel 04/13/22XR Pelvis 1 or 2 Views 07/29/21XR Spine Lumbar AP/LAT/FLEX/EXT 07/29/21XR Spine Lumbar W/Obliques 4 Views 12/30/21 [facility] Evaluation + Plan note Future Appointments Appointment Date:10/11/2022 09:00:00 AM Scheduled Provider:MICHAEL MIDDLETON DO Location:[facility] Appointment Type:PC OV Appointment Date:01/01/2023 09:00:00 AM Scheduled Provider:MICHAEL MIDDLETON DO Location:[facility] Appointment Type:PC [facility] Medicare Future Scheduled TestsMicroalbumin Level Urine 07/13/22XR Pelvis 1 or 2 Views 07/29/21XR Spine Lumbar AP/LAT/FLEX/EXT 07/29/21XR Spine Lumbar W/Obliques 4 Views 12/30/21 [facility] Evaluation + Plan note Future Appointments Appointment Date:01/01/2023 09:00:00 AM Scheduled Provider:MICHAEL MIDDLETON DO Location:[facility] Appointment Type:PC Wellness Medicare Future Scheduled TestsMicroalbumin Level Urine 07/13/22XR Spine Lumbar W/Obliques 4 Views 12/30/21 [facility] Evaluation + Plan note Future Appointments Appointment Date:11/06/2022 09:30:00 AM Scheduled Provider:DAY BAGLEY PA-C Location:[facility] Appointment Type:CV OV Appointment Date:01/01/2023 09:00:00 AM Scheduled Provider:MICHAEL MIDDLETON DO Location:[facility] Appointment Type:PC Wellness Medicare Future Scheduled TestsMicroalbumin Level Urine 07/13/22XR Spine Lumbar W/Obliques 4 Views 12/30/21 [facility] Evaluation + Plan note Future Appointments Appointment Date:11/29/2022 09:00:00 AM Scheduled Provider: Location:[facility] Appointment Type:CV Procedure - AOH Echo Appointment Date:01/01/2023 09:00:00 AM Scheduled Provider:MICHAEL MIDDLETON DO Location:[facility] Appointment Type: Wellness Medicare Future Scheduled TestsMicroalbumin Level Urine 07/13/22XR Spine Lumbar W/Obliques 4 Views 12/30/21 [facility] Evaluation + Plan note Future Appointments Appointment Date:01/12/2023 08:00:00 AM Scheduled Provider: Location:[facility] Appointment Type:CV Procedure - AOH Echo Appointment Date:01/26/2023 01:00:00 PM Scheduled Provider:MICHAEL MIDDLETON DO Location:[facility] Appointment Type:PC OV Future Scheduled TestsMicroalbumin Level Urine 07/13/22 [facility] Evaluation + Plan note Future Appointments Appointment Date:03/01/2023 01:00:00 PM Scheduled Provider: Location:[facility] Appointment Type:CV Procedure - AOH Echo Appointment Date:03/09/2023 01:30:00 PM Scheduled Provider:MICHAEL MIDDLETON DO Location:[facility] Appointment Type:PC OV Future Scheduled TestsThyroid Stimulating Hormone 01/26/23A1C Hemoglobin 01/26/23Complete Blood Count 01/26/23Lipid Profile 01/26/23Albumin/Creatinine Ratio, Random Urine 01/26/23Microalbumin Level Urine 07/13/22PTH, Intact 01/26/23Vitamin D Level 01/26/23Complete Metabolic Panel 01/26/23 [facility] Evaluation + Plan note Future Appointments Appointment Date:03/01/2023 01:00:00 PM Scheduled Provider: Location:[facility] Appointment Type:CV Procedure - AOH Echo Appointment Date:03/09/2023 01:30:00 PM Scheduled Provider:MICHAEL MIDDLETON DO Location:[facility] Appointment Type:PC OV Appointment Date:08/28/2023 10:30:00 AM Scheduled Provider:MICHAEL MIDDLETON DO Location:[facility] Appointment Type:PC OV Future Scheduled TestsAlbumin/Creatinine Ratio, Random Urine 01/26/23Microalbumin Level Urine 07/13/22 [facility] Evaluation + Plan note Future Appointments Appointment Date:03/09/2023 01:30:00 PM Scheduled Provider:MICHAEL MIDDLETON DO Location:[facility] Appointment Type:PC OV Appointment Date:08/28/2023 10:30:00 AM Scheduled Provider:MICHAEL MIDDLETON DO Location:[facility] Appointment Type:PC OV Future Scheduled TestsAlbumin/Creatinine Ratio, Random Urine 01/26/23Microalbumin Level Urine 07/13/22 [facility] Evaluation + Plan note Future Appointments Appointment Date:06/08/2023 10:30:00 AM Scheduled Provider:MICHAEL MIDDLETON DO Location:[facility] Appointment Type:PC OV Appointment Date:08/10/2023 10:30:00 AM Scheduled Provider:MICHAEL MIDDLETON DO Location:[facility] Appointment Type:PC OV Future Scheduled TestsAlbumin/Creatinine Ratio, Random Urine 01/26/23Microalbumin Level Urine 07/13/22Renal Function Panel 03/09/23 [facility] Evaluation + Plan note Future Appointments Appointment Date:05/15/2023 10:30:00 AM Scheduled Provider: Location:[facility] Appointment Type:CV OV Appointment Date:06/08/2023 10:30:00 AM Scheduled Provider:MICHAEL MIDDLETON DO Location:[facility] Appointment Type:PC OV Appointment Date:08/10/2023 10:30:00 AM Scheduled Provider:MICHAEL MIDDLETON DO [facility] Appoint[facility] Type:PC OV Future Scheduled TestsBasic Metabolic Panel 10/25/Albumin/Creatinine Ratio, Random Urine 7//Microalbumin Level Urine 1//N-Terminal proBNP 05/02/23 [facility] Evaluation + Plan note Future Appointments Appointment Date:05/15/2023 10:30:00 AM Scheduled Provider: Location:[facility] Appointment Type:CV OV Appointment Date:06/08/2023 10:30:00 AM Scheduled Provider:MICHAEL MIDDLETON DO [facility] Appointment Type:PC OV Appointment Date:08/10/2023 10:30:00 AM Scheduled Provider:MICHAEL MIDDLETON DO [facility] Appointment Type:PC OV Future Scheduled TestsBasic Metabolic Panel 10/25/Albumin/Creatinine Ratio, Random Urine 7/21/Microalbumin Level Urine 1/11/28Renal Function Panel 10/12/29N-Terminal proBNP 05/02/23 [facility] Hospital course Narrative No data available for this section [facility] Hospital Discharge instructions No data available for this section [facility] Progress note No data available for this section [facility] Summary Purpose Family History No Family History Records Found Advance Directives No Advanced Directives Records Found Additional Source Comments Care Team (unrecognized sect ion and content) Care Team Personnel Name: [place] Clermiguel Quintana PT Position: P3 Scheduling - Automobile Tester Advanced Member Role: Other Name: MICHAEL MIDDLETON DO Position: P4 Physician - Primary Care Med Service: Active Provider Member Role: Primary Care Physician Address: Address: [address] [place] [address]- Care Team Related Persons Name: CARINA GEETHA Address: [address] [place], [place] [phone] Care Team Personnel Name: [place] Clerk Lilian PT Position: P3 Scheduling - Automobile Tester Advanced Member Role: Other Name: MICHAEL MIDDLETON DO Position: P4 Physician - Primary Care Med Service: Active Provider Member Role: Primary Care Physician Address: Address: [address] [place], [place] [id number]- Care Team Related Persons Name: GEETHA LIM Address: Home [address] [place], [place] [phone] [place] Care Team Personnel Name: [place] Clerk Lilian PT Position: P3 Scheduling - Automobile Tester Advanced Member Role: Other Name: MICHAEL MIDDLETON DO Position: P4 Physician - Primary Care Med Service: Active Provider Member Role: Primary Care Physician Address: Address: [address] [place] [address]- Care Team Related Persons Name: MIRIAMPADMINITjGEETHA Address: [address] [place] [phone] [place] Care Team Personnel Name: [place] Clerk Lilian PT Position: P3 Scheduling - Automobile Tester Advanced Member Role: Other Name: MICHAEL MIDDLETON DO Position: P4 Physician - Primary Care Member Role: Primary Care Physician Address: Address: [address] [place] [address]- Care Team Related Persons Name: GEETHA LIM Address: [address] [place] [id number] [place] Care Team Personnel Name: [place] Clerk Lilian PT Position: P3 Scheduling - Automobile Tester Advanced Member Role: Other Name: MICHAEL MIDDLETON DO Position: P4 Physician - Primary Care Member Role: Primary Care Physician Address: Address: [address] [place] [address]- Care Team Related Persons Name: GEETHA LIM Address: Home [address] [place], [place] [phone] Patient Care team informatio n (unrecognized section and content) Care Team Personnel Name: [employer] Sales Supervisor Lilian PT Position: P3 Scheduling - Automobile Tester Advanced Member Role: Other Name: MICHAEL MIDDLETON DO Position: P4 Physician - Primary Care Member Role: Primary Care Physician Address: Address: [address] [place] [address]- Care Team Related Persons Name: GEETHA LIM Address: Home [address] [place], [place] [phone] [place] Care Team Personnel Name: [employer] Sales Supervisor Lilian PT Position: P3 Scheduling - Automobile Tester Advanced Member Role: Other Name: MICHAEL MIDDLETON DO Position: P4 Physician - Primary Care Member Role: Primary Care Physician Address: Address: [address] [place] [address]- Care Team Related Persons Name: GEETHA LIM Address: Home [address] [place], [place] [phone] [place] Care Team Personnel Name: [place] Clerk Lilian PT Position: P3 Scheduling - Automobile Tester Advanced Member Role: Other Name: MICHAEL MIDDLETON DO Position: P4 Physician - Primary Care Member Role: Primary Care Physician Address: Address: [address] [place] [address]- Care Team Related Persons Name: GEETHA LIM Address: Home [address] [place], [place] [phone] [place] Care Team Personnel Name: [place] Clerk Lilian PT Position: P3 Scheduling - Automobile Tester Advanced Member Role: Other Name: MICHAEL MIDDLETON DO Position: P4 Physician - Primary Care Member Role: Primary Care Physician Address: Address: [address] [place] [address]- Care Team Related Persons Name: GEETHA LIM Address: Home [address] [place], [place] [phone] [place] Care Team Personnel Name: [employer] Sales Supervisor Lilian PT Position: P3 Scheduling - Automobile Tester Advanced Member Role: Other Name: MICHAEL MIDDLETON DO Position: P4 Physician - Primary Care Member Role: Primary Care Physician Address: Address: [address] [place] [address]- Care Team Related Persons Name: GEETHA LIM Address: Home [address] [place], [place] [phone] [place] Care Team Personnel Name: [employer] Sales Supervisor Lilian PT Position: P3 Scheduling - Automobile Tester Advanced Member Role: Other Name: MICHAEL MIDDLETON DO Position: P4 Physician - Primary Care Member Role: Primary Care Physician Address: Address: [address] [place] [address]- [place] Care Team Related Persons Name: GEETHA LIM Address: Home [address] [place], [place] [phone] [place] Care Team Personnel Name: [employer] Sales Supervisor Lilian PT Position: P3 Scheduling - Automobile Tester Advanced Member Role: Other Name: MICHAEL MIDDLETON DO Position: P4 Physician - Primary Care Member Role: Primary Care Physician Address: Address: [address] [place] [address]- [place] Care Team Related Persons Name: GEETHA ILM Address: Home [address] [place], [place] [phone] [place] Care Team Personnel Name: [place] Clerk Lilian PT Position: P3 Scheduling - Automobile Tester Advanced Member Role: Other Name: MICHAEL MIDDLETON DO Position: P4 Physician - Primary Care Member Role: Primary Care Physician Address: Address: [address] [place] [address]- [place] Care Team Related Persons Name: GEETHA LIM Address: Home [address] [place], [place] [phone] [place] Care Team Personnel Name: [employer] Sales Supervisor Liilan PT Position: P3 Scheduling - Automobile Tester Advanced Member Role: Other Name: MICHAEL MIDDLETON DO Position: P4 Physician - Primary Care Member Role: Primary Care Physician Address: Address: [address] [place] [address]- [place] Care Team Related Persons Name: GEETHA LIM Address: Home [address] [place], [place] [phone] [place] Care Team Personnel Name: [employer] Sales Supervisor Lilian PT Position: P3 Scheduling - Automobile Tester Advanced Member Role: Other Name: MICHAEL MIDDLETON DO Position: P4 Physician - Primary Care Member Role: Primary Care Physician Address: Address: [address] [place] [address] [place] [address]- Care Team Related Persons Name: GEETHA LIM Address: Home [address] [place], [place] [phone] (unrecognized sect ion and content) No Status Records Found INFORMATION SOURCE (unrecogn ized section and content) FOR RECORDS PERTAINING TO PATIENTS WHO ARE OR HAVE BEEN ENROLLED IN A CHEMICAL DEPENDENCY/SUBSTANCEABUSE PROGRAM, SOME INFORMATION MAY BE OMITTED. This clinical summary was aggregated from multiple sources. Caution should be exercised in using it in the provision of clinical care. This summary normalizes information from multiple sources, and as a consequence, information in this document may materially change the coding, format and clinical context of patient data. In addition, data may be omitted in some cases. CLINICAL DECISIONS SHOULD BE BASED ON THE PRIMARY CLINICAL RECORDS. [employer] provides no warranty or guarantee of the accuracy or completeness of information in this document.
== END | disposition home or self-care (01) ==
LOC: LABSPEC 16:20
PROVIDERS: PCP Student in an Organized Health Care Education/Training Program; Referring Provider Urology; Visit Provider Urology
DX: R30.0 Dysuria (principal)
CPT/HCPCS: 87086

== ENCOUNTER → 2023-09-03 | Outpatient (CLI) | payer MEDICARE, OTHER, SELFPAY ==
--- OUTSIDE RECORDS SUMMARY | 2023-09-04 00:14 | XMS RPT_ITS | CCD ---
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 Role Phone MICHAEL MIDDLETON DO Primary Care Physician ([id number] Shasta PT, Lilian Unavailable Unavailable HALKO DO, Primary Care Unavailable BAGLEY PA-C, DAY Attending Unavailable HALKO DO, Attending Unavailable HALKO DO, Primary Care Unavailable HALKO DO, Primary Care Unavailable HALKO DO, Attending Unavailable HALKO DO, Primary Care Unavailable HALKO DO, Attending Unavailable HALKO DO, Attending Unavailable HALKO DO, Primary Care Unavailable HALKO DO, Attending Unavailable HALKO DO, Primary Care Unavailable HALKO DO, Primary Care Unavailable BAGLEY PA-C, DAY Attending Unavailable HALKO DO, Primary Care Unavailable BAGELY PA-C, DAY Attending Unavailable HALKO DO, Primary Care Unavailable HALKO DO, Attending Unavailable HALKO DO, Primary Care Unavailable HALKO DO, Attending Unavailable HALKO DO, Primary Care Unavailable HALKO DO, Attending Unavailable HALKO DO, Primary Care Unavailable HALKO DO, Attending Unavailable HALKO DO, Primary Care Unavailable BAGLEY PA-C, DAY Attending Unavailable KRISSY ARMSTRONG, DR DIONNE HDZ Attending Nidhi riverale HALKO , Primary Care Unavailable KRISSY ARMSTRONG, DR DIONNE HDZ Attending Nancyi lable HALKO DO, Primary Care Unavailable HALKO DO, Primary Care Unavailable HALKO DO, Attending Unavailable HALKO DO, Primary Care Unavailable HALKO DO, Attending Unavailable Allergies Allergy Classification Reported Allergen(s) Allergy Type Date of Onset Reaction(s) Facility (14 sources) Acetaminophen / HYDROcodone; Translations: [acetaminophen-hyd rocodone] Drug Allergy Nausea (finding), Vomiting (disorder) [facility] Work Phone: Medications Current Medications Medication [...] day(s), # 12 tab(s), 0 Refill(s), [id number], Bladder cancer, 175.3, cm, 11/17/22 13:00:00 EDT, Height, 97.7 Start Date: 11/17/22 Stop Date: 11/24/22 Status: Ordered apixaban 5 mg oral tablet (4 sources) Factor Xa Inhibitor Start: 06-08-2023 Eliquis 5 mg oral tablet Dose : 5 mg = 1 tab(s), Oral, BID, # 180 tab(s), 1 Refill(s), Pharmacy: [facility]/pharmacy #[id number], 175, cm, 06/08/23 10:53:00 EST, Height, 93.3, kg, 06/08/23 10:53:00 EST, Dosing Weight Start Date: 06/08/23 Status: Ordered Completed/Discontinued Medications Medication Drug Class(es) Dates Sig (Normalized) Sig (Original) 0.25 MG, 0.5 MG Dose 3 ML semaglutide 0.68 MG/ML Pen Injector [Ozempic] (1 source) Start: 08-14-2023 inject 0.5 mg by subcutaneous injection every week Ozempic 2 mg/3 mL (0.25 mg or 0.5 mg dose) subcutaneous solution Dose : 0.25 mg =, Subcutaneous, qWeek, rotate injection sites, # 1 EA, 0 Refill(s), Pharmacy: [facility]/pharmacy #[id number], 175, cm, 08/10/23 10:47:00 EST, Height, kg, 06/08/23 10:53:00 EST, Dosing Weight Start Date: 08/14/23 Status: Ordered 0.5 ML semaglutide 1 MG/ML Auto-Injector (1 source) Start: 08-28-2023 End: 09-25-2023 inject 0.25 mg by subcutaneous injection every week semaglutide 0.5 mg/0.5 mL (0.5 mg dose) subcutaneous solution Dose : 0.5 mg =, Subcutaneous, qWeek, in the abdomen, thigh, or upper arm discontinue 0.25 mg rx on file, X 4 week(s), # 2 mL, 0 Refill(s), 09/25/23 12:44:00 PM EDT, Pharmacy: [facility]/pharmacy #[id number], 175, cm, 08/10/23 10:47:00 EST, Height, kg, 06/08/23 10:53:00 EST, Dosing Weight Start Date: 08/28/23 Stop Date: 09/25/23 Status: Ordered Problems Active Problems Problem Classification Problem Date Documented Da te Episodic/Chronic Anxiety disorders (18 sources) Mixed anxiety and depressive disorder; Translations: [Anxiety] 07-30-2020 Chronic Blindness and vision defects (18 sources) Wears glasses 11-26-2020 Episodic Cancer of bladder (10 sources) Malignant tumor of urinary bladder; Translations: [Malignant neoplasm of bladder, unspecified] Onset: 11-17-2022 Chronic Cardiac dysrhythmias (4 sources) Paroxysmal atrial fibrillation 03-27-2023 Chronic Chronic kidney disease (19 sources) Chronic kidney disease stage 3; Translations: [...] Time Vital Sign Value Performing Clinician Faci kalyani 11-17-2022 16:49-0400 Body temperature 97.52 [degF] DR DIONNE REY MD [facility] 11-17-2022 16:49-0400 Diastolic Blood Pressure Non-Invasive [address] DIONNE REY MD [facility] 11-17-2022 16:49-0400 Heart rate 54 /min DR DIONNE REY MD [facility] 11-17-2022 16:49-0400 Respiratory rate 16 /min DR DIONNE REY MD [facility] 11-17-2022 16:49-0400 Systolic Blood Pressure Non-Invasive [address] DIONNE REY MD [facility] 11-17-2022 16:16-0400 Diastolic Blood Pressure Non-Invasive [address] DIONNE REY MD [facility] 11-17-2022 16:16-0400 Respiratory rate 16 /min DR DIONNE REY MD [facility] 11-17-2022 16:16-0400 Systolic Blood Pressure Non-Invasive [address] DIONNE REY MD [facility] 11-17-2022 15:51-0400 Diastolic Blood Pressure Non-Invasive [address] DIONNE REY MD [facility] 11-17-2022 15:51-0400 Heart rate 52 /min DR DIONNE REY MD [facility] 11-17-2022 15:51-0400 Respiratory rate 17 /min DR DIONNE REY MD [facility] 11-17-2022 15:51-0400 Systolic Blood Pressure Non-Invasive [address] DIONNE REY MD [facility] 11-17-2022 15:34-0400 Heart rate 50 /min DR DIONNE REY MD [facility] 11-17-2022 15:31-0400 Heart rate 50 /min DR DIONNE REY MD [facility] 11-17-2022 14:50-0400 Body temperature 96.8 [degF] DR DIONNE REY MD [facility] 11-17-2022 14:45-0400 Respiratory Rate - Anes 14 br/min DR DIONNE REY MD [facility] 11-17-2022 14:40-0400 Respiratory Rate - Anes 17 br/min DR DIONNE REY MD [facility] 11-17-2022 14:35-0400 Respiratory Rate - Anes 17 br/min DR DIONNE REY MD [facility] 11-17-2022 12:38-0400 Body height 175.[address] DIONNE REY MD [facility] 11-17-2022 12:38-0400 Body temperature 97.52 [degF] DR DIONNE REY MD [facility] 11-17-2022 12:38-0400 Body weight 97.[address] DIONNE REY MD [facility] 11-17-2022 12:38-0400 Heart rate 71 /min DR DIONNE REY MD [facility] 11-03-2022 11:23-[address] DIONNE REY MD [facility] 11-03-2022 11:23-0400 Body height 175.[address] DIONNE REY MD [facility] 11-03-2022 11:23-0400 Body weight 97.[address] DIONNE REY MD [facility] 11-03-2022 11:23-0400 Body weight 31.79 kg/m2 DR DIONNE REY MD [facility] 11-03-2022 11:23-0400 Diastolic Blood Pressure Non-Invasive [address] DIONNE REY MD [facility] 11-03-2022 11:23-0400 Heart rate 67 /min DR DIONNE REY MD [facility] 11-03-2022 11:23-0400 Respiratory rate 20 /min DR DIONNE REY MD [facility] 11-03-2022 11:23-0400 Systolic Blood Pressure Non-Invasive [address] DIONNE REY MD [facility] Encounters Encounter Date Encounter Type Care Provider Facility Start: 08-28-2023 End: 08-28-2023 Patient encounter procedure HALKO DO [facility] Start: 08-10-2023 End: 08-14-2023 Outreach Lab HALKO DO [facility] Start: 08-02-2023 End: 08-03-2023 ambulatory HALKO DO Facility:B Start: 05-03-2023 End: 05-04-2023 ambulatory HALKO DO Facility:B Start: 04-19-2023 End: 04-20-2023 ambulatory HALKO DO Facility:B Start: 04-19-2023 End: 04-19-2023 Patient encounter procedure DAY BAGLEY PA-C [facility] Start: 04-06-2023 End: 04-07-2023 ambulatory HALKO DO Facility:B Start: 04-06-2023 End: 04-06-2023 Patient encounter procedure HALKO DO [facility] Start: 03-16-2023 End: 03-17-2023 ambulatory HALKO DO Facility:B Start: 03-16-2023 End: 03-16-2023 Patient encounter procedure HALKO DO [facility] Start: 03-01-2023 End: 03-02-2023 ambulatory HALKO DO Facility:B Start: 03-01-2023 End: 03-01-2023 Patient encounter procedure DAY BAGLEY PA-C [facility] Start: 02-26-2023 End: 02-27-2023 ambulatory HALKO DO Facility:B Start: 02-26-2023 End: 02-26-2023 Patient encounter procedure HALKO DO [facility] Start: 02-19-2023 End: 02-20-2023 ambulatory NAHUMKO DO Facility:B Start: 02-19-2023 End: 02-19-2023 Patient encounter procedure HALKO DO [facility] Start: 01-04-2023 End: 01-05-2023 ambulatory NAHUMKO DO Facility:B Start: 01-04-2023 End: 01-04-2023 Patient encounter procedure HALKO DO [facility] Start: 01-01-2023 End: 01-02-2023 ambulatory NAHUMKO DO Facility:B Start: 11-17-2022 End: 11-17-[address] DIONNE REY MD Facility:B Start: 11-17-2022 End: 11-17-[address] DIONNE REY MD [facility] Start: 11-03-2022 End: 11-04-[address] DIONNE REY MD Facility:B Start: 11-03-2022 End: 11-03-[address] DIONNE REY MD [facility] Start: 10-24-2022 End: 10-25-2022 ambulatory MICHAEL MIDDLETON DO Facility:B Start: 10-12-2022 End: 10-13-2022 ambulatory MICHAEL SIDHUKO DO Facility:B Start: 10-12-2022 End: 10-12-2022 Patient encounter procedure MICHAEL SIDHUKO DO [facility] Start: 10-11-2022 End: 10-16-2022 ambulatory MICHAEL SIDHUKO DO Facility:B Start: 07-14-2022 End: 07-14-2022 Patient encounter procedure MICHAEL MIDDLETON DO [facility] Start: 04-11-2022 End: 04-11-[address] HERLINDA KILPATRICK MD [facility] Start: 03-14-2022 End: 03-14-2022 Patient encounter procedure MICHAEL MIDDLETON DO [facility] Start: 03-02-2022 End: 06-02-2022 Physical therapy management MICHAEL MIDDLETON DO [facility] Start: 02-24-2022 End: 02-24-2022 Patient encounter procedure MICHAEL SIDHUKO DO [facility] Start: 09-29-2021 End: 09-29-[address] HERLINDA KILPATRICK MD [facility] Procedures Date Procedure Procedure Detail Performing Clinician Start: 11-17-2022 TUR - electroresecti on of bladder DR DIONNE REY MD Start: 03-29-[address] HERLINDA KILPATRICK MD Immunizations Immunization Date Immunization Notes Care Provider Fa [facility] 05-08-2023 influenza virus vaccine, unspecified formulation MICHAEL MIDDLETON DO [facility] 04-13-2023 [id number](tozinam era n [id number])bi eddy BAGLEY PA-C [facility] 04-12-2022 influenza virus vaccine, unspecified formulation MICHAEL MIDDLETON DO [facility] Payers Date Payer Category Payer Medicare [id number] 2022 Unknown [id number] 1940 Unknown [id number] 2.16.8 [id number] 1938 Unknown [id number] 2.16.8 [id number] 1938 Unknown [id number] 2.16.8 [id number] 1938 Unknown [id number] 2.16.8 [id number] 1938 Unknown [id number] 2.16.8 40.1.250149.3.579.2.62 1938 Unknown [id number] 2.16.8 [id number] 1938 Unknown [id number] 2.16.8 [id number] 1938 Unknown [id number] 2.16.8 [id number] 1938 Unknown [id number] 2.16.8 40.1.792988.3.579.2.627 1938 Unknown [id number] 2.16.8 [id number] 1938 Unknown [id number] 2.16.8 40.1.831538.3.579.2.62 1938 Unknown [id number] 2.16.8 [id number] 1938 Unknown [id number] 2.16.8 40.1.164496.3.579.2. 1938 Unknown [id number] 2.16.8 40.1.570586.3.579.2.62 1938 Unknown [id number] 2.16.8 40.1.131660.3.579.2. 1938 Unknown [id number] 2.16.8 40.1.862655.3.579.2.62 1938 Unknown [id number] 2.16.8 [id number] Social History Date Type Detail Facility Start: 07-23-2019 End: 11-03-2022 Ex-smoker (finding) [facility] Medical Equipment Procedure Code Equipment Code Equipment Origin al Text Equipment Identifier Dates Blood Glucose Te st Strips Start: 01-28-2020 one strip, Other , TID, check BGT 1x/day; dispense #100 Monica Contour test strips for 90 day supply, 3 refills; dx E11.9, # 100 EA, 3 Refill(s), Pharmacy: [facility]/pharmacy #[id number], 174, cm, 12/30/21 9:22:00 EDT, Height, 92.6, kg, 12/30/21 9:22:00 EDT, Dosing... Start: 12-30-2021 See Instructions , check BGT 1x/day, dipsense #100 Monica Contour test strips for 90 day supply, 3 refills; dx E11.9., # 100 EA, 3 Refill(s), [id number], 174, cm, 12/30/21 9:22:00 EDT, Height, 92.6 Start: 12-30-2021 one strip, Other , TID, check BGT 1x/day; dispense #100 Monica Contour test strips for 90 day supply, 3 refills; dx E11.9, # 100 EA, 3 Refill(s), [id number], 174, cm, 12/30/21 9:22:00 EDT, Height, 92.6, kg, 12/30/21 9:22:00 EDT, Dosing... Start: 12-30-2021 See Instructions , check BGT 1x/day, dipsense #100 Monica Contour test strips for 90 day supply, 3 refills; dx E11.9., # 100 EA, 3 Refill(s), [id number], 174, cm, 12/30/21 9:22:00 EDT, Height, 92.6 Start: 12-30-2021 one strip, Other , TID, check BGT 1x/day; dispense #100 Monica Contour test strips for 90 day supply, 3 refills; dx E11.9, # 100 EA, 3 Refill(s), [id number], 174, cm, 12/30/21 9:22:00 EDT, Height, 92.6, kg, 12/30/21 9:22:00 EDT, Dosing... Start: 12-30-2021 See Instructions , check BGT 1x/day, dipsense #100 Monica Contour test strips for 90 day supply, 3 refills; dx E11.9., # 100 EA, 3 Refill(s), [id number], 174, cm, 12/30/21 9:22:00 EDT, Height, 92.6 Start: 12-30-2021 one strip, Other , TID, check BGT 1x/day; dispense #100 Monica Contour test strips for 90 day supply, 3 refills; dx E11.9, # 100 EA, 3 Refill(s), [id number], 174, cm, 12/30/21 9:22:00 EDT, Height, 92.6, kg, 12/30/21 9:22:00 EDT, Dosing... Start: 12-30-2021 See Instructions , check BGT 1x/day, dipsense #100 Monica Contour test strips for 90 day supply, 3 refills; dx E11.9., # 100 EA, 3 Refill(s), [id number], 174, cm, 12/30/21 9:22:00 EDT, Height, 92.6 Start: 12-30-2021 one strip, Other , TID, check BGT 1x/day; dispense #100 Monica Contour test strips for 90 day supply, 3 refills; dx E11.9, # 100 EA, 3 Refill(s), [id number], 174, cm, 12/30/21 9:22:00 EDT, Height, 92.6, kg, 12/30/21 9:22:00 EDT, Dosing... Start: 12-30-2021 See Instructions , check BGT 1x/day, dipsense #100 Monica Contour test strips for 90 day supply, 3 refills; dx E11.9., # 100 EA, 3 Refill(s), [id number], 174, cm, 12/30/21 9:22:00 EDT, Height, 92.6 Start: 12-30-2021 one strip, Other , TID, check BGT 1x/day; dispense #100 Monica Contour test strips for 90 day supply, 3 refills; dx E11.9, # 100 EA, 3 Refill(s), [id number], 174, cm, 12/30/21 9:22:00 EDT, Height, 92.6, kg, 12/30/21 9:22:00 EDT, Dosing... Start: 12-30-2021 See Instructions , check BGT 1x/day, dipsense #100 Monica Contour test strips for 90 day supply, 3 refills; dx E11.9., # 100 EA, 3 Refill(s), [id number], 174, cm, 12/30/21 9:22:00 EDT, Height, 92.6 Start: 12-30-2021 one strip, Other , TID, check BGT 1x/day; dispense #100 Monica Contour test strips for 90 day supply, 3 refills; dx E11.9, # 100 EA, 3 Refill(s), [id number], 174, cm, 12/30/21 9:22:00 EDT, Height, 92.6, kg, 12/30/21 9:22:00 EDT, Dosing... Start: 12-30-2021 See Instructions , check BGT 1x/day, dipsense #100 Monica Contour test strips for 90 day supply, 3 refills; dx E11.9., # 100 EA, 3 Refill(s), [id number], 174, cm, 12/30/21 9:22:00 EDT, Height, 92.6 Start: 12-30-2021 one strip, Other , TID, check BGT 1x/day; dispense #100 Monica Contour test strips for 90 day supply, 3 refills; dx E11.9, # 100 EA, 3 Refill(s), [id number], 174, cm, 12/30/21 9:22:00 EDT, Height, 92.6, kg, 12/30/21 9:22:00 EDT, Dosing... Start: 12-30-2021 See Instructions , check BGT 1x/day, dipsense #100 Monica Contour test strips for 90 day supply, 3 refills; dx E11.9., # 100 EA, 3 Refill(s), [id number], 174, cm, 12/30/21 9:22:00 EDT, Height, 92.6 Start: 12-30-2021 See Instructions , dx E11.9, test BGT once daily; dispense #100 Monica contour test strips for 90 day supply, 3 refills, # 100 EA, 3 Refill(s), [id number], 175.3, cm, 11/17/22 13:00:00 EDT, Height, 97.7, kg, 11/17/22 13:00:00 EDT, Dosi... Start: 12-20-2022 See Instructions , check BGT 1x/day, dipsense #100 Monica Contour test strips for 90 day supply, 3 refills; dx E11.9., # 100 EA, 3 Refill(s), [id number], 174, cm, 12/30/21 9:22:00 EDT, Height, 92.6 Start: 12-30-2021 See Instructions , dx E11.9, test BGT once daily; dispense #100 Monica contour test strips for 90 day supply, 3 refills, # 100 EA, 3 Refill(s), [id number], 175.3, cm, 11/17/22 13:00:00 EDT, Height, 97.7, kg, 11/17/22 13:00:00 EDT, Dosing Weight Start: 12-20-2022 See Instructions , check BGT 2x/day, dipsense #100 Monica Contour test strips for 90 day supply, dx E11.9., # 200 EA, 0 Refill(s), [id number], 175, cm, 01/26/23 13:12:00 EDT, Height, 93.1, kg, 01/26/23 13:12:00 EDT, Dosing Weight Start: 02-16-2023 See Instructions , dx E11.9, test BGT once daily; dispense #100 Monica contour test strips for 90 day supply, 3 refills, # 100 EA, 3 Refill(s), [id number], 175.3, cm, 11/17/22 13:00:00 EDT, Height, 97.7, kg, 11/17/22 13:00:00 EDT, Dosing Weight Start: 12-20-2022 See Instructions , check BGT 2x/day, dipsense #200 Monica Contour test strips for 90 day supply, 3 refills, dx E11.65, Z79.4., # 200 EA, 3 Refill(s), [id number], 175, cm, 02/20/23 11:40:00 EDT, Height, 99.4, kg, 02/20/23 11:40:00 EDT, Dosing Weight Start: 08-15-2023 See Instructions , dx E11.9, test BGT once daily; dispense #100 Monica contour test strips for 90 day supply, 3 refills, # 100 EA, 3 Refill(s), [id number], 175.3, cm, 11/17/22 13:00:00 EDT, Height, 97.7, kg, 11/17/22 13:00:00 EDT, Dosing Weight Start: 12-20-2022 See Instructions , check BGT 2x/day, dipsense #200 Monica Contour test strips for 90 day supply, 3 refills, dx E11.65, Z79.4., # 200 EA, 3 Refill(s), [id number], 175, cm, 02/20/23 11:40:00 EDT, Height, 99.4, kg, 02/20/23 11:40:00 EDT, Dosing Weight Start: 02-20-2023 See Instructions , dx E11.9, test BGT once daily; dispense #100 Monica contour test strips for 90 day supply, 3 refills, # 100 EA, 3 Refill(s), [id number], 175.3, cm, 11/17/22 13:00:00 EDT, Height, 97.7, kg, 11/17/22 13:00:00 EDT, Dosing Weight Start: 12-20-2022 See Instructions , check BGT 2x/day, dipsense #200 Monica Contour test strips for 90 day supply, 3 refills, dx E11.65, Z79.4., # 200 EA, 3 Refill(s), [id number], 175, cm, 02/20/23 11:40:00 EDT, Height, 99.4, kg, 02/20/23 11:40:00 EDT, Dosing Weight Start: 02-20-2023 See Instructions , dx E11.9, test BGT once daily; dispense #100 Monica contour test strips for 90 day supply, 3 refills, # 100 EA, 3 Refill(s), [id number], 175.3, cm, 11/17/22 13:00:00 EDT, Height, 97.7, kg, 11/17/22 13:00:00 EDT, Dosing Weight Start: 12-20-2022 See Instructions , check BGT 2x/day, dipsense #200 Monica Contour test strips for 90 day supply, 3 refills, dx E11.65, Z79.4., # 200 EA, 3 Refill(s), Pharmacy: [facility] #[id number], 175, cm, 02/20/23 11:40:00 EDT, Height, 99.4, kg, 02/20/23 11:40:00 EDT, Dosing Weight Start: 02-20-2023 See Instructions , dx E11.9, test BGT once daily; dispense #100 Monica contour test strips for 90 day supply, 3 refills, # 100 EA, 3 Refill(s), [id number], 175.3, cm, 11/17/22 13:00:00 EDT, Height, 97.7, kg, 11/17/22 13:00:00 EDT, Dosing Weight Start: 12-20-2022 See Instructions , check BGT 2x/day, dipsense #200 Monica Contour test strips for 90 day supply, 3 refills, dx E11.65, Z79.4., # 200 EA, 3 Refill(s), Pharmacy: [facility] #[id number], 175, cm, 02/20/23 11:40:00 EDT, Height, 99.4, kg, 02/20/23 11:40:00 EDT, Dosing Weight Start: 02-20-2023 See Instructions , dx E11.21, Z74.9, test BGT qwice daily; dispense #200 contour next test strips for 90 day supply, 3 refills, # 200 EA, 3 Refill(s), [id number], 175, cm, 06/08/23 10:53:00 EST, Height, 93.3, kg, 06/08/23 10:53:00 EST, Dosing Weight Start: 06-08-2023 See Instructions , check BGT 2x/day, dipsense #200 Monica Contour test strips for 90 day supply, 3 refills, dx E11.65, Z79.4., # 200 EA, 3 Refill(s), [id number], 175, cm, 02/20/23 11:40:00 EDT, Height, 99.4, kg, 02/20/23 11:40:00 EDT, Dosing Weight Start: 02-20-2023 See Instructions , dx E11.21, Z74.9, test BGT qwice daily; dispense #200 contour next test strips for 90 day supply, 3 refills, # 200 EA, 3 Refill(s), [id number], 175, cm, 06/08/23 10:53:00 EST, Height, 93.3, kg, 06/08/23 10:53:00 EST, Dosing Weight Start: 06-08-2023 See Instructions , check BGT 2x/day, dipsense #200 Monica Contour test strips for 90 day supply, 3 refills, dx E11.65, Z79.4., # 200 EA, 3 Refill(s), [id number], 175, cm, 02/20/23 11:40:00 EDT, Height, 99.4, kg, 02/20/23 11:40:00 EDT, Dosing Weight Start: 02-20-2023 Functional Status Date Assessment Result Facility 11-17-2022 Functional Status Awake [facility] 11-17-2022 Functional Status [facility] 11-17-2022 Functional Status Maintained [facility] 11-03-2022 Functional Status Sensory Deficits None A [facility] 03-02-2022 Functional Status Objective: Sensation: [...] IR: see chart decreased on the L [facility] Mental Status Date Assessment Result Facility 11-17-2022 Mental Status Orientation Oriented x 4 [facility] 11-17-2022 Mental Status [facility] 03-14-2022 Mental Status Orientation Asse ssment Oriented x 4 [facility] Clinical Notes 11-17-2022 LaboratoryRadiologyLaboratoryRadiologyLaboratoryRadiologyLaboratoryRadiologyLabo ratoryRadiologyLaboratoryRadiologyLaboratoryRadiologyLaboratoryRadiologyLaborato ryRadiologyLaboratoryLaboratory Note [...] Follow these instructions at home: Medicines Take wkpt-hve-prtnipf and prescription medicines only as told by [...] of blood in your urine increases. Take pjlz-cbq-nsauxnq and prescription medicines only as told by your health care provider. Drink enough fluid to keep your urine pale yellow. This information is not intended to replace advice given to you by your health care provider. Make sure you discuss any questions you have with your health care provider. Document Released: 02/25/2014 Document Revised: 04/01/2019 Document Reviewed: 04/02/2019 [employer] 2020 [employer]. 11/17/2022 15:40:48 General Anesthesia, Adult, Care After [...] what activities are safe for you. Take pxdb-zoc-biumumx and prescription medicines only as told by [...] 10/01/2001 Document Revised: 06/28/2018 Document Reviewed: 02/08/2018 [employer] 2020 [employer]. 11/17/2022 15:39:26 Transurethral Resection of Bladder Tumor [...] including vitamins, herbs, eye drops, creams, and xzoc-epe-ragqyqy medicines. Any problems you or family members [...] provider tells you to take them. Taking qwpt-vvx-wuyietf medicines, vitamins, herbs, and supplements. Tests You [...] 04/21/2010 Document Revised: 01/24/2019 Document Reviewed: 01/24/2019 [employer] Patient Education 2020 [employer]. Follow Up Care 10/24/2022 08:37:23 With:DIONNE REY MD, [facility] Address: [address] [place] [phone] When: Unknown Comments:Make an appointment to see Dr. Rey in 2 weeks from today. [facility] 11-17-2022 Summary of episod e note Discharge Instructions Thank you for allowing [facility] to assist you with your healthcare needs. The following is important discharge information regarding your hospital visit. Your Care Team MICHAEL MIDDLETON DO Your Diagnosis Bladder cancer What to do next Scheduled Follow-Up Appointments Appointment Type When With Where Contact InformationCV Procedure - AOH Echo 11/29/2022 09:00 AM EDT [facility] [phone] PC Wellness Medicare 01/01/2023 09:00 AM EDT MICHAEL MIDDLETON [facility] Follow Up Appointments Follow Up with DIONNE REY MD, [facility] When Why: Make an appointment to see Dr. Rey in 2 weeks from today. Where: [address] [place] [phone] Allergies NKA Medications Please ask your primary [...] Bladder cancer Duration: 7 Days Pickup at [facility]/pharmacy #[id number] New ciprofloxacin (Cipro 500 mg oral tablet) 1 tab(s) by mouth Every 24 hours Duration: 10 Days Pickup at [facility]/pharmacy #[id number] Unchanged ammonium lactate topical (ammonium lactate 12% [...] a day Duration: 90 Days Pharmacy Information [facility]/pharmacy #[id number]: [address], [place] [phone] Please take this list to your next [...] Follow these instructions at home: Medicines Take qjdq-lbf-bxfkayp and prescription medicines only as told by [...] of blood in your urine increases. Take jlvf-fgk-mbvdwnz and prescription medicines only as told by your health care provider. Drink enough fluid to keep your urine pale yellow. This information is not intended to replace advice given to you by your health care provider. Make sure you discuss any questions you have with your health care provider. Document Released: 02/25/2014 Document Revised: 04/01/2019 Document Reviewed: 04/02/2019 [employer] Patient Education 2020 [employer]. General Anesthesia, Adult, Care After This sheet [...] what activities are safe for you. Take gaok-anc-owwdaqo and prescription medicines only as told by [...] 10/01/2001 Document Revised: 06/28/2018 Document Reviewed: 02/08/2018 [employer] Patient Education 2020 [employer] Transurethral Resection of Bladder Tumor Transurethral resection [...] including vitamins, herbs, eye drops, creams, and wvre-hva-gqrnwrl medicines. Any problems you or family members [...] provider tells you to take them. Taking nrhu-whf-xjgwzns medicines, vitamins, herbs, and supplements. Tests You [...] 04/21/2010 Document Revised: 01/24/2019 Document Reviewed: 01/24/2019 [employer] Patient Education 2020 [employer] Additional Information VACCINATE! IT SAVES LIVES! Members of the community who have not yet received the COVID-19 vaccine and would like to receive it can visit one of [facility] vaccine clinics. There are many vaccine clinic locations within the [facility]. For locations and available times, please visit [email or web address] [email or web address] It is important to note that some COVID mobile vaccine clinics are held outdoors and may be canceled in rainy or stormy conditions. To learn more about pediatric vaccinations (ages 5-11), we invite you to visit the [employer] webpage. [email or web address] To learn more about the COVID-19 vaccine, we invite you to visit the CDC website for a list of frequently asked questions.https://www.cdc.gov/cor onavirus/2019-ncov/vaccines/faq.h tml [employer] Patient Portal Access Instructions: Stay connected with your healthcare team and access your personal medical information anytime with the [employer] Patient Portal. Please follow the directions below to create your [employer] account: 1.Access the email account you provided upon registration to the hospital/physician office.2.Look for an invitation email from [facility].3.Open the email and access the invitation link: Accept Invitation to [employer].4.Fill in the required malin to create your account. To access your account, visit [email or web address]. Click the blue button labeled Access Patient [...] you will allow to register on the [employer] Patient Portal for access to your information. You can also access the [facility] Patient Portal on the [facility] johana. Simply click on Patient Portal and then log into your account. If you would like to receive a full copy of your medical records, please contact the [facility] Medical Records Department by calling [phone], Sunday through Sunday between 8 a.m. and [...] Call your local pharmacy or go to [email or web address] to find one close to you.3.Make use of household items: Use cat litter or old coffee grounds to dispose medications if other options are not available. Mix your drugs with these household products, seal them in an airtight container and throw it into the garbage. Call [facility]: [phone] to be sure your drugs can be [...] been reviewed and explained to me and I,MIREYA LIM understand my current condition and have read and understand these discharge instructions. I have received a written copy of the plan/instructions. If I have questions, I am aware that I should contact my doctor. Patient/Rn Hemodialysis Signature: Date/Time: Relationship to Patient: ____ Witness Name/Signature: Date/Time: [facility] 11-17-2022 Anesthesiology Consult note Patient: MIREYA [...] by WILLIAM RUEDA on 11/17/2022 02:54 PM [facility] 11-17-2022 Anesthesiology Consult note Patient: MIREYA [...] list: Medical Abnormal gait / SNOMED CT 43493710 / Confirmed Anxiety / SNOMED CT 36216555 / Confirmed Arthritis of left shoulder region / SNOMED CT 5991347868 / Confirmed Risk for falls / SNOMED CT 557860115 / Confirmed BPH with obstruction/lower urinary tract symptoms / SNOMED CT 6195495614 / Confirmed BMI 32.0-32.9,adult / SNOMED CT 634592929 / Confirmed Easy bruising / SNOMED CT 0860139787 / Confirmed CHRONIC DIASTOLIC CHF (CONGESTIVE HEART FAILURE) (Renamed from CHRONIC DIASTOLIC (CONGESTIVE) HEART FAILURE) / SNOMED CT 7793611659 / Confirmed CKD (CHRONIC KIDNEY DISEASE), STAGE III (Renamed from STAGE 3 CHRONIC KIDNEY DISEASE) / SNOMED CT 4835502658 / Confirmed CAD (coronary artery disease) / SNOMED CT 14400436 / Confirmed DDD (degenerative disc disease), lumbar / SNOMED CT 17669653 / Confirmed Diabetic nephropathy / SNOMED CT 0230608706 / Confirmed Dupuytren's contracture / SNOMED CT 465078130 / Confirmed DYSLIPIDEMIA / SNOMED CT 8039195278 / Confirmed Dysphagia / SNOMED CT 18511288 / Confirmed Rash / SNOMED CT 018504984 / Confirmed Former smoker / SNOMED CT 51328315 / Confirmed GERD (gastroesophageal reflux disease) / SNOMED CT 143470484 / Confirmed Previous back surgery / SNOMED CT 006519019 / Confirmed S/P CABG x 4 / SNOMED CT 7549938892 / Confirmed Hypertension associated with diabetes / SNOMED CT 8462252216 / Confirmed 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 / SNOMED CT 952313353 / Confirmed LVH (left ventricular hypertrophy) due to hypertensive disease / SNOMED CT 9269084164 / Confirmed Immunization due / SNOMED CT 386939928 / Confirmed Itching / SNOMED CT 6686189069 / Confirmed LVH (left ventricular hypertrophy) / SNOMED CT 04689873 / Confirmed Low back pain / SNOMED CT 327387939 / Confirmed Major depression in full remission / SNOMED CT 4747873421 / Confirmed Moderate aortic regurgitation / SNOMED CT 1700933463 / Confirmed Nocturia / SNOMED CT 699188708 / Confirmed Obese / SNOMED CT 1876703369 / Confirmed Medicare annual wellness visit, subsequent / SNOMED CT 797435678 / Confirmed Screening for cardiovascular condition / SNOMED CT 505465810 / Confirmed Osteoporosis screening / SNOMED CT 458436550 / Confirmed Glaucoma screening / SNOMED CT 243739119 / Confirmed Encounter for screening involving social determinants of health (SDoH) / SNOMED CT 277286590 / Confirmed Screening for prostate cancer / SNOMED CT 780818406 / Confirmed Screening for depression / SNOMED CT 552140653 / Confirmed Diabetic retinopathy / SNOMED CT 5919872087 / Confirmed Secondary hyperaldosteronism / SNOMED CT 8714183152 / Confirmed Left shoulder pain / SNOMED CT 70468980 / Confirmed Somatic dysfunction of pelvic region / SNOMED CT 9754773369 / Confirmed Somatic dysfunction of rib region / SNOMED CT 3692640567 / Confirmed Somatic dysfunction of sacral region / SNOMED CT 8149300532 / Confirmed Type 2 diabetes mellitus with hyperlipidemia / SNOMED CT 282160510 / Confirmed Uncontrolled type 2 diabetes mellitus with hyperglycemia / SNOMED CT 3260999109 / Confirmed Need for hepatitis C screening test / SNOMED CT 820810503 / Confirmed Vitamin D deficiency / SNOMED CT 82402171 / Confirmed Wears glasses / SNOMED CT 193465651 / Confirmed, Active Problems (55) Abnormal gait [...] or recorded., HTN, CHF, CAD, sp CABG, [place], stent, COPD, stage 3 CKD, NIDDM Family History: Cardiac pacemaker Father Heart disease Brother Father Procedure history: CE - Cataract extraction ([id number]) on 03/29/2021 at 80 Years. Comments: 04/06/2021 10:28 SUKHJINDER - Giovanna Westbrook MA (ABR-OE) Right Echocardiogram ([id number]) on 09/29/2020 at 80 Years. Comments: 03/31/2021 10:19 Katya Sanchez MA (ABR-OE) EF 55% Placement of stent ([id number]) on 11/19/2018 at 78 Years. Echocardiogram ([id number]) on 11/19/2018 at 78 Years. CABG x 4 - Coronary artery bypass grafts x 4 ([id number]) on 11/11/2018 at 78 Years. Comments: 11/12/2018 21:55 SIERRAT - Deacon Agarwal RN Using SMITH and Left SAPH Cardiac catheterization ([id number]) on 11/08/2018 at 78 Years. Cardiovascular stress testing ([id number]) on 11/06/2018 at 78 Years. Disc ([id number]) in the month of 08/2002 at 62 Years. Comments: 11/03/2022 12:04 Antonette Hough RN L4-L5 11/07/2018 21:25 SUKHJINDER Pimentel RN Anamika repair Femur ([id number]). 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 Airway: Normal temporomandibular [...] Safety Brochure Information Reviewed Unable to complete Adan Solo Video Viewed No Teaching Evaluation No [...] Saturation 95 % . Assessment and Plan [place] [employer] Anesthesiologists (ASA) physical status classification: Class IV. Anesthetic Preoperative Plan Premedication: intravenous. Anesthetic technique: General. Induction: intravenously. Maintenance airway: Laryngeal mask airway. Postoperative pain management: Per surgeon. Risks discussed: nausea, vomiting, headache, sore throat, dental injury, hypotension, allergic reaction, serious complications. Informed consent: signed by patient. Digitally Signed by WILLIAM RUEDA on 11/17/2022 12:45 PM [facility] Evaluation + Plan note Future Appointments Appointment Date:10/07/2021 10:30:00 AM Scheduled Provider: Location:[facility] Appointment Type:CV OV Appointment Date:12/30/2021 09:30:00 AM Scheduled Provider:MICHAEL MIDDLETON DO Location:[facility] Appointment Type:PC Wellness Medicare Future Scheduled TestsBasic Metabolic Panel 04/13/21Thyroid Stimulating Hormone 07/29/21Complete Blood Count 07/29/21Lipid Profile 07/29/21Microalbumin Level Urine 07/29/21Vitamin D Level 07/29/21Complete Metabolic Panel 07/29/21XR Pelvis 1 or 2 Views 07/29/21XR Spine Lumbar AP/LAT/FLEX/EXT 07/29/21 [facility] Evaluation + Plan note Future Appointments Appointment Date:04/13/2022 09:30:00 AM Scheduled Provider:MICHAEL MIDDLETON DO Location:[facility] Appointment Type: OV Future Scheduled TestsBasic Metabolic Panel 04/13/21Prostate Specific Antigen 12/30/21Thyroid Stimulating Hormone 07/29/21Complete Blood Count 07/29/21Lipid Profile 04/08/22Lipid Profile 07/29/21Microalbumin Level Urine 07/29/21Vitamin D Level 07/29/21Complete Metabolic Panel 07/29/21N-Terminal proBNP 04/08/22XR Pelvis 1 or 2 Views 07/29/21XR Swallowing Function 02/23/22XR Spine Lumbar AP/LAT/FLEX/EXT 07/29/21XR Spine Lumbar W/Obliques 4 Views 12/30/21 [facility] Evaluation + Plan note Future Appointments Appointment Date:03/15/2022 09:00:00 AM Scheduled Provider: Location:[facility] Appointment Type:PT Treatment - [place] Appointment Date:03/17/2022 09:00:00 AM Scheduled Provider: Location:[facility] Appointment Type:PT Treatment - [place] Appointment Date:03/24/2022 11:00:00 AM Scheduled Provider: Location:[facility] Appointment Type:PT Treatment - [place] Appointment Date:03/27/2022 11:00:00 AM Scheduled Provider: Location:[facility] Appointment Type:PT Treatment - [place] Appointment Date:03/31/2022 11:00:00 AM Scheduled Provider: Location:[facility] Appointment Type:PT Treatment - [place] Appointment Date:04/05/2022 11:00:00 AM Scheduled Provider: Location:[facility] Appointment Type:PT Treatment - [place] Appointment Date:04/13/2022 09:30:00 AM Scheduled Provider:MICHAEL MIDDLETON DO Location:[facility] Appointment Type:PC OV Future Scheduled TestsBasic Metabolic Panel 04/13/21Prostate Specific Antigen 12/30/21Thyroid Stimulating Hormone 07/29/21Complete Blood Count 07/29/21Lipid Profile 04/08/22Lipid Profile 07/29/21Microalbumin Level Urine 07/29/21Vitamin D Level 07/29/21Complete Metabolic Panel 07/29/21N-Terminal proBNP 04/08/22XR Pelvis 1 or 2 Views 07/29/21XR Spine Lumbar AP/LAT/FLEX/EXT 07/29/21XR Spine Lumbar W/Obliques 4 Views 12/30/21 [facility] Evaluation + Plan note Future Appointments Appointment Date:04/12/2022 11:00:00 AM Scheduled Provider: Location:[facility] Appointment Type:PT [facility] Appointment Date:04/13/2022 09:30:00 AM Scheduled Provider:MICHAEL MIDDLETON DO Location:[facility] Appointment Type:PC OV Future Scheduled TestsBasic Metabolic Panel 04/13/21Prostate Specific Antigen 12/30/21Thyroid Stimulating Hormone 07/29/21Complete Blood Count 07/29/21Lipid Profile 07/29/21Microalbumin Level Urine 07/29/21Vitamin D Level 07/29/21Complete Metabolic Panel 07/29/21XR Pelvis 1 or 2 Views 07/29/21XR Spine Lumbar AP/LAT/FLEX/EXT 07/29/21XR Spine Lumbar W/Obliques 4 Views 12/30/21 [facility] Evaluation + Plan note Future Appointments Appointment Date:07/13/2022 09:00:00 AM Scheduled Provider:MICHAEL MIDDLETON DO Location:[facility] Appointment Type:PC OV Future Scheduled TestsProstate Specific Antigen 12/30/21Thyroid Stimulating Hormone 04/13/22Complete Blood Count 04/13/22Lipid Profile 04/13/22Microalbumin Level Urine 04/13/22Vitamin D Level 04/13/22Complete Metabolic Panel 04/13/22XR Pelvis 1 or 2 Views 07/29/21XR Spine Lumbar AP/LAT/FLEX/EXT 07/29/21XR Spine Lumbar W/Obliques 4 Views 12/30/21 [facility] Evaluation + Plan note Future Appointments Appointment Date:10/11/2022 09:00:00 AM Scheduled Provider:MICHAEL MIDDLETON DO Location:[facility] Appointment Type:PC OV Appointment Date:01/01/2023 09:00:00 AM Scheduled Provider:MICHAEL MIDDLETON DO Location:[facility] Appointment Type: Wellness Medicare Future Scheduled TestsMicroalbumin Level Urine 07/13/22XR Pelvis 1 or 2 Views 07/29/21XR Spine Lumbar AP/LAT/FLEX/EXT 07/29/21XR Spine Lumbar W/Obliques 4 Views 12/30/21 [facility] Evaluation + Plan note Future Appointments Appointment Date:01/01/2023 09:00:00 AM Scheduled Provider:MICHAEL MIDDLETON DO Location:[facility] Appointment Type:PC Wellness Medicare Future Scheduled TestsMicroalbumin Level Urine 07/13/22XR Spine Lumbar W/Obliques 4 Views 12/30/21 [facility] Evaluation + Plan note Future Appointments Appointment Date:11/06/2022 09:30:00 AM Scheduled Provider:DAY BAGLEY PA-C Location:[facility] Appointment Type:CV OV Appointment Date:01/01/2023 09:00:00 AM Scheduled Provider:MICHAEL MIDDLETON DO Location:[facility] Appointment Type:[facility] Medicare Future Scheduled TestsMicroalbumin Level Urine 07/13/22XR Spine Lumbar W/Obliques 4 Views 12/30/21 [facility] Evaluation + Plan note Future Appointments Appointment Date:11/29/2022 09:00:00 AM Scheduled Provider: Location:[facility] Appointment Type:CV Procedure - AOH Echo Appointment Date:01/01/2023 09:00:00 AM Scheduled Provider:MICHAEL MIDDLETON DO Location:[facility] Appointment Type:PC Wellness Medicare Future Scheduled TestsMicroalbumin Level Urine 07/13/22XR Spine Lumbar W/Obliques 4 Views 12/30/21 [facility] Evaluation + Plan note Future Appointments Appointment Date:01/12/2023 08:00:00 AM Scheduled Provider: Location:[facility] Appointment Type:CV Procedure - AOH Echo Appointment Date:01/26/2023 01:00:00 PM Scheduled Provider:MICHAEL MIDDLETON DO [facility] Type:PC OV Future Scheduled TestsMicroalbumin Level Urine 07/13/22 [facility] Evaluation + Plan note Future Appointments Appointment Date:03/01/2023 01:00:00 PM Scheduled Provider: Location:[facility] Appointment Type:CV Procedure - AOH Echo Appointment Date:03/09/2023 01:30:00 PM Scheduled Provider:MICHAEL MIDDLETON DO [facility] Appointment Type:PC OV Future Scheduled TestsThyroid Stimulating Hormone 01/26/23A1C Hemoglobin 01/26/23Complete Blood Count 01/26/23Lipid Profile 01/26/23Albumin/Creatinine Ratio, Random Urine 01/26/23Microalbumin Level Urine 07/13/22PTH, Intact 01/26/23Vitamin D Level 01/26/23Complete Metabolic Panel 01/26/23 [facility] Evaluation + Plan note Future Appointments Appointment Date:03/01/2023 01:00:00 PM Scheduled Provider: Location:[facility] Appointment Type:CV Procedure - AOH Echo Appointment Date:03/09/2023 01:30:00 PM Scheduled Provider:MICHAEL MIDDLETON DO [facility] Appointment Type:PC OV Appointment Date:08/28/2023 10:30:00 AM Scheduled Provider:MICHAEL MIDDLETON DO Location:[facility] Appointment Type:PC OV Future Scheduled TestsAlbumin/Creatinine Ratio, Random Urine 01/26/23Microalbumin Level Urine 07/13/22 [facility] Evaluation + Plan note Future Appointments Appointment Date:03/09/2023 01:30:00 PM Scheduled Provider:MICHAEL MIDDLETON DO [facility] Appoint[facility] Type:PC OV Appointment Date:08/28/2023 10:30:00 AM Scheduled Provider:MICHAEL MIDDLETON DO Location:[facility] Appointment Type:PC OV Future Scheduled TestsAlbumin/Creatinine Ratio, Random Urine 01/26/23Microalbumin Level Urine 07/13/22 [facility] Evaluation + Plan note Future Appointments Appointment Date:06/08/2023 10:30:00 AM Scheduled Provider:MICHAEL MIDDLETON DO [facility] Appointment Type:PC OV Appointment Date:08/10/2023 10:30:00 AM Scheduled Provider:MICHAEL MIDDLETON DO [facility] Appointment Type:PC OV Future Scheduled TestsAlbumin/Creatinine Ratio, Random Urine 01/26/23Microalbumin Level Urine 07/13/22Renal Function Panel 03/09/23 [facility] Evaluation + Plan note Future Appointments Appointment Date:05/15/2023 10:30:00 AM Scheduled Provider: Location:[facility] Appointment Type:CV OV Appointment Date:06/08/2023 10:30:00 AM Scheduled Provider:MICHAEL MIDDLETON DO [facility] Appointment Type:PC OV Appointment Date:08/10/2023 10:30:00 AM Scheduled Provider:MICHAEL MIDDLETON DO [facility] Appointment Type:PC OV Future Scheduled TestsBasic Metabolic Panel 05/02/23Albumin/Creatinine Ratio, Random Urine 01/26/23Microalbumin Level Urine 07/13/22N-Terminal proBNP 05/02/23 [facility] Evaluation + Plan note Future Appointments Appointment Date:05/15/2023 10:30:00 AM Scheduled Provider: Location:[facility] Appointment Type:CV OV Appointment Date:06/08/2023 10:30:00 AM Scheduled Provider:MICHAEL MIDDLETON DO [facility] Appointment Type:PC OV Appointment Date:08/10/2023 10:30:00 AM Scheduled Provider:MICHAEL MIDDLETON DO [facility] Type:PC OV Future Scheduled TestsBasic Metabolic Panel 05/02/23Albumin/Creatinine Ratio, Random Urine 01/26/23Microalbumin Level Urine 07/13/22Renal Function Panel 04/13/23N-Terminal proBNP 05/02/23 [facility] Evaluation + Plan note Future Appointments Appointment Date:11/08/2023 09:00:00 AM Scheduled Provider:MICHAEL MIDDLETON DO [facility] Appointment Type:PC OV Future Scheduled TestsBasic Metabolic Panel 05/10/23Complete Blood Count 11/08/23Albumin/Creatinine Ratio, Random Urine 01/26/23Vitamin D Level 11/08/23Complete Metabolic Panel 11/08/23N-Terminal proBNP 11/13/23 [facility] Evaluation + Plan note Future Appointments Appointment Date:11/08/2023 09:00:00 AM Scheduled Provider:MICHAEL MIDDLETON DO [facility] Appoint[facility] Type:PC OV Diagnostic Tests PendingUrine Culture 08/28/23Urine Culture 08/28/23 Future Scheduled TestsBasic Metabolic Panel 05/10/23Urinalysis w/ C&S if Indicated 08/28/23Complete Blood Count 11/08/23Albumin/Creatinine Ratio, Random Urine 01/26/23Vitamin D Level 11/08/23Complete Metabolic Panel 11/08/23N-Terminal proBNP 11/13/23 [facility] Hospital course Narrative No data available for this section [facility] Hospital Discharge instructions No data available for this section [facility] Progress note No data available for this section [facility] Summary Purpose Family History No Family History Records Found Advance Directives No Advanced Directives Records Found Additional Source Comments Care Team (unrecognized sect ion and content) Care Team Personnel Name: [place] Clermiguel Quintana PT 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 Advanced Member Role: Other Name: MICHAEL MIDDLETON DO Position: P4 Physician - Primary Care Med Service: Active Provider Member Role: Primary Care Physician Address: Address: [address] [place] [address]- Care Team Related Persons Name: GEETHA LIM Address: Home [address] [place], [place] [id number] Care Team Personnel Name: [place] Clerk Lilian PT 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 Advanced Member Role: Other Name: MICHAEL MIDDLETON DO Position: P4 Physician - Primary Care Med Service: Active Provider Member Role: Primary Care Physician Address: Address: [address] [place], [place] [phone]- Care Team Related Persons Name: GEETHA LIM Address: Home [address] [place], [place] [id number] [place] Care Team Personnel Name: [place] Clerk Lilian PT 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 Advanced Member Role: Other Name: MICHAEL MIDDLETON DO Position: P4 Physician - Primary Care Med Service: Active Provider Member Role: Primary Care Physician Address: Address: [address] [place] [address]- Care Team Related Persons Name: GEETHA LIM Address: Home [address] [place], [place] [id number] [place] Care Team Personnel Name: [place] Clerk Lilian PT 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 Advanced Member Role: Other Name: MICHAEL MIDDLETON DO Position: P4 Physician - Primary Care Member Role: Primary Care Physician Address: Address: [address] [place] [address]- Care Team Related Persons Name: GEETHA LIM Address: Home [address] [place] [id number] [place] Care Team Personnel Name: [place] Clerk Lilian PT 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 Advanced Member Role: Other Name: MICHAEL MIDDLETON DO Position: P4 Physician - Primary Care Member Role: Primary Care Physician Address: Address: [address] [place] [address]- Care Team Related Persons Name: GEETHA LIM Address: Home [address] [place], [place] [phone] Patient Care team informatio n (unrecognized section and content) Care Team Personnel Name: [place] Clerk Lilian PT 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 Advanced Member Role: Other Name: MICHAEL MIDDLETON DO Position: P4 Physician - Primary Care Member Role: Primary Care Physician Address: Address: [address] [place], [place] [id number]- Care Team Related Persons Name: GEETHA LIM Address: Home [address] [place], [place] [phone] [place] Care Team Personnel Name: [employer] Mgr Lilian PT 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 Advanced Member Role: Other Name: MICHAEL MIDDLETON DO Position: P4 Physician - Primary Care Member Role: Primary Care Physician Address: Address: [address] [place] [address]- Care Team Related Persons Name: GEETHA LIM Address: Home [address] [place], [place] [phone] [place] Care Team Personnel Name: [place] Clerk Lilian PT 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 Advanced Member Role: Other Name: MICHAEL MIDDLETON DO Position: P4 Physician - Primary Care Member Role: Primary Care Physician Address: Address: [address] [place], [place] [phone]- Care Team Related Persons Name: GEETHA LIM Address: Home [address] [place] [id number] [place] Care Team Personnel Name: [place] Clerk Lilian PT 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 Advanced Member Role: Other Name: MICHAEL MIDDLETON DO Position: P4 Physician - Primary Care Member Role: Primary Care Physician Address: Address: [address] [place], [place] [phone]- Care Team Related Persons Name: GEETHA LIM Address: Home [address] [place] [phone] [place] Care Team Personnel Name: [employer] Mgr Lilian PT 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 Advanced Member Role: Other Name: MICHAEL MIDDLETON DO Position: P4 Physician - Primary Care Member Role: Primary Care Physician Address: Address: [address] [place] [address]- Care Team Related Persons Name: GEETHA LIM Address: Home [address] [place], [place] [phone] [place] Care Team Personnel Name: [employer] Mgr Lilian PT 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 Advanced Member Role: Other Name: MICHAEL MIDDLETON DO Position: P4 Physician - Primary Care Member Role: Primary Care Physician Address: Address: [address] [place] [address]- Care Team Related Persons Name: GEETHA LIM Address: Home [address] [place], [place] [phone] [place] Care Team Personnel Name: [employer] Mgr Lilian PT 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 Advanced Member Role: Other Name: MICHAEL MIDDLETON DO Position: P4 Physician - Primary Care Member Role: Primary Care Physician Address: Address: [address] [place] [address]- Care Team Related Persons Name: GEETHA LIM Address: Home [address] [place], [place] [phone] [place] Care Team Personnel Name: [employer] Mgr Lilian PT 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 Advanced Member Role: Other Name: MICHAEL MIDDLETON DO Position: P4 Physician - Primary Care Member Role: Primary Care Physician Address: Address: [address] [place] [address]- Care Team Related Persons Name: GEETHA LIM Address: Home [address] [place], [place] [phone] [place] Care Team Personnel Name: [employer] Mgr Lilian PT 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 Advanced Member Role: Other Name: MICHAEL MIDDLETON DO Position: P4 Physician - Primary Care Member Role: Primary Care Physician Address: Address: [address] [place] [address]- Care Team Related Persons Name: GEETHA LIM Address: Home [address] [place], [place] [phone] [place] Care Team Personnel Name: [employer] Mgr Lilian PT 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 Advanced Member Role: Other Name: MICHAEL MIDDLETON DO Position: P4 Physician - Primary Care Member Role: Primary Care Physician Address: Address: [address] [place] [address]- Care Team Related Persons Name: GEETHA LIM Address: Home [address] [place], [place] [phone] Care Team Personnel Name: [place] Clermiguel Quintana PT 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 Advanced Member Role: Other Name: MICHAEL MIDDLETON DO Position: P4 Physician - Primary Care Member Role: Primary Care Physician Address: Address: [address] [place] [address] Care Team Related Persons Name: RUDDYDENISEGEETHA Spencer Address: Home [address], [place] [phone] Care Team Personnel Name: [place] Clermiguel Quintana PT 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 [facility] [employer] provides no warranty or guarantee of the accuracy or completeness of information in this document.
== END | disposition home or self-care (01) ==
LOC: LABSPEC 16:53
PROVIDERS: PCP Student in an Organized Health Care Education/Training Program; Referring Provider Urology; Visit Provider Urology
DX: R31.9 Hematuria, unspecified (principal)
CPT/HCPCS: 87086; 87088

== ENCOUNTER 2023-09-04 17:36 | Emergency (ER) | payer MEDICARE, OTHER, SELFPAY ==
[2023-09-04 17:37] VITALS: BP 114/72; PULSE 94; RESP 16; TEMP 36.6; O2SAT 97; BMI 28.8
--- NOTE | 2023-09-04 18:42 | EDS_ITS ---
HPI History of Present Illness Chief Complaint: Complaint Informant: patient and spouse/S.O. Pain Onset: Days Context: Gradual Onset Timing: Continuous Current Severity: Mild Maximum Severity: Mild Narrative Narrative: and diabetes. Currently has UTI and is on cefdinir since Sunday.83-year-old male history of BPH, bladder cancer He has been getting urinary frequency with small amounts of urine and he has to go quite often. Does not feel like he is emptying his bladder and sometimes has trouble urinating. Currently he has cloudy urine due to the UTI. He denies gross blood or clots. He does see the urologist Dr. Gonzalo Hankins who is scheduled to do a prostate surgery on the patient September 11. Patient's last catheter was November of last year. He has had similar symptoms before in the past. He denies any fever or chills. He denies any systemic symptoms. He denies any nausea, vomiting or diarrhea. Prior similar symptoms: Yes Recent Illness/Hospitalization: No PFSH PFSH Medical History Bladder cancer BPH (benign prostatic hyperplasia) DM II (diabetes mellitus, type II), controlled Home Medications atorvastatin 10 mg tablet 40 mg PO QHS Check with primary doctor 12/30/14 [History Last Taken 12/17/22 21:00] glimepiride 4 mg tablet 4 mg PO DAILY Check with primary doctor 12/30/14 [History Last Taken 12/18/22 09:00] cholecalciferol (vitamin D3) 125 mcg (5,000 unit) capsule 125 mcg PO DAILY Check with primary doctor 12/02/22 [History Last Taken 12/18/22 09:00] empagliflozin 25 mg tablet (Jardiance) 25 mg PO DAILY Check with primary doctor 12/02/22 [History Last Taken 12/18/22 09:00] metformin 1,000 mg tablet 1,000 mg PO BID Check with primary doctor 12/02/22 [Hi story Last Taken 12/18/22 09:00] metoprolol succinate 100 mg tablet,extended release 24 hr 100 mg PO DAILY Check with primary doctor 12/02/22 [History Last Taken 12/18/22 09:00] pantoprazole 40 mg tablet,delayed release 40 mg PO DAILY Check with primary doctor 12/02/22 [History Last Taken 12/17/22 21:00] tamsulosin 0.4 mg capsule 0.8 mg PO DAILY Check with primary doctor 12/02/22 [History Last Taken 12/18/22 09:30] aspirin 81 mg capsule 81 mg PO DAILY Cardiac 12/18/22 [History Last Taken 12/18/22 09:00] fluconazole 100 mg tablet (Diflucan) 100 mg PO BID #28 tabs 12/22/22 [Rx Last Taken Unknown] cefdinir 300 mg capsule 300 mg PO Q12H 09/04/23 [History Last Taken Unknown] finasteride 5 mg tablet 5 mg PO DAILY 09/04/23 [History Last Taken Unknown] fluconazole 200 mg tablet 200 mg PO DAILY 09/04/23 [History Last Taken Unknown] Allergy/AdvReac Type Severity Reaction Status Date / Time No Known Allergies Allergy Verified 09/04/23 17:40 Surgical History H/O transurethral resection of bladder tumor (TURBT) Hx of CABG S/P ureteral stent placement Social History household members: spouse housing: house Smoking Status: Former smoker alcohol intake: never substance use type: does not use ROS ROS ED ROS Narrative Dysuria. Difficulty urinating. Review of Systems ROS Unobtainable: Denies due to encephalopathy Constitutional Constitutional ED: Denies chills or fever(s) Eyes Eyes: Denies blurry vision ENT ENT ED: Denies ear pain Cardiovascular Cardiovascular: Denies chest pain Respiratory/Chest Respiratory/Chest: Denies cough or dyspnea Gastrointestinal Gastrointestinal: Denies abdominal pain, constipation, diarrhea, melena, nausea or vomiting Genitourinary Genitourinary ED: Reports dysuria and urinary frequency; Denies hematuria Musculoskeletal Musculoskeletal: Denies arthralgias Integumentary Denies abscess Neurologic Neurologic: Denies headache(s) Psychiatric Psychiatric: Denies anxiety Endocrine Endocrinology: Denies polydipsia Hematologic/Lymphatic Hematologic/Lymphatic: Denies easy bleeding, easy bruising or lymphadenopathy Allergic/Immunologic Allergic/Immunologic ED: Denies mouth swelling, tongue swelling or urticaria EXAM Physical Exam Narrative Exam Narrative: Well-appearing 83-year-old male. Vital signs stable afebrile. HEENT exam unremarkable. Neck nontender. Lungs clear to auscultation. Heart regular rhythm no murmur. Chest wall nontender. Abdomen soft, nondistended normal bowel sounds no peritoneal signs. External exam circumcised male. No blood. No masses appreciated. He did urinate in the room in the sample cup its cloudy urine. No gross blood or clots. Moving all 4 extremities. Nontender no edema. Neurologically he is awake and alert with no focal motor deficits. Const Vital Signs: 09/04/23 17:37 09/04/23 19:09 Temperature 98 F 98.7 F Temperature Source Temporal Pulse Rate 94 67 Respiratory Rate 16 18 Blood Pressure 114/72 122/55 H Blood Pressure Mean 86 77 Pulse Ox 97 100 Oxygen Delivery Method Room Air Positive well nourished and well developed; Negative for obese, cachectic, contractures or unkempt General Appearance ED: well developed and NAD; Negative for unkempt, cachectic, contractures or pallor Nutritional Appearance: Negative for cachectic or obese HEENT Reports moist mucous membranes normocephalic and atraumatic; Negative for trauma or tenderness Eyes PERRL and EOMs intact bilaterally Neck no lymphadenopathy, supple and no JVD General: Negative for tenderness Resp normal respiratory effort and clear to auscultation bilaterally Effort and Inspection: Negative for retractions Auscultation: Negative for rales, rhonchi or wheezes Cardio regular rate, regular rhythm, S1 normal heart sound, S2 normal heart sound and no murmurs Rate: Negative for bradycardia or tachycardic Rhythm: Negative for abnormal rhythm Heart Sounds: Negative for other GI non-tender, non-distended and no masses Inspection: Negative for abdominal distention Auscultation: normoactive bowel sounds Palpation: soft; Negative for tender or guarding no CVA tenderness Groin / Perineum Exam: Negative for edema Back/Spine no CVA tenderness General Back: Negative for CVA tenderness Cervical Spine: Negative for cervical spine tenderness Thoracic Spine / Upper Back: Negative for thoracic spinal tenderness Extremity normal to inspection General Extremety ED: Negative for edema, pulses abnormal or tenderness General Extremity: Negative for edema or pulses abnormal Neuro oriented x3, CN's II-XII intact bilaterally, moves all extremities and no focal motor deficits Sensorium / Orientation: alert, oriented to person, oriented to place and oriented to time; Negative for orientation impaired, confused or lethargic Motor Exam: strength 5/5 throughout Psych mental status grossly normal Appearance: Negative for unkempt Attitude: No agitated Mood & Affect: Negative for depressed, anxious or tearful Thought Process: normal thought process Thought Content: normal thought content Skin General Skin Exam: Negative for jaundice or pallor Lesions: no lesions Rashes: no rashes Trauma: Negative for abrasion or laceration MDM MDM MDM Narrative Medical decision making narrative: 83-year-old male history of BPH, bladder cancer, diabetes and currently being treated for UTI has been on antibiotics since Sunday. Sees the local urologist Dr. Gonzalo Hankins. Patient is having difficulty urinating. At times urinary retention. Bladder scan will be obtained and placed a Pyle catheter most likely. Repeat exam patient is doing well at 7:50 PM. He has a Pyle catheter in place. He is cloudy blood-tinged urine but not clots and not heavy blood or bleeding. He feels much more comfortable with the catheter in. He had a bladder scan that showed about 218 cc of urine. We discussed leaving the Pyle catheter annual follow-up with a provider to decide when they can remove it. Will continue his current antibiotics. Discharge Plan Triage Chief Complaint: Complaint ED Provider: Berny Carrillo Dx/Rx/DC Orders Clinical Impression: Chronic anticoagulation, Acute UTI, Acute urinary retention, History of diabetes mellitus, History of BPH Instructions: ED Urinary Retention, Male, ED Bladder Infection, Male (Adult) Prescriptions: No Action atorvastatin 10 MG tablet 40 mg PO QHS glimepiride 4 MG tablet 4 mg PO DAILY metoprolol succinate 100 mg tablet extended release 24 hr 100 mg PO DAILY tamsulosin 0.4 mg Capsule 0.8 mg PO DAILY pantoprazole 40 mg tablet,delayed release (DR/EC) 40 mg PO DAILY metformin 1,000 mg Tablet 1,000 mg PO BID Jardiance 25 mg tablet 25 mg PO DAILY cholecalciferol (vitamin D3) 125 mcg (5,000 unit) capsule 125 mcg PO DAILY Patient Comments: TAKE 1 CAPSULE BY MOUTH EVERY DAY aspirin 81 mg Capsule 81 mg PO DAILY fluconazole [Diflucan] 100 mg tablet 100 mg PO BID Qty: 28 0RF fluconazole 200 mg tablet 200 mg PO DAILY Patient Comments: TAKE 1 TABLET BY MOUTH EVERY DAY FOR 14 DAYS cefdinir 300 mg capsule 300 mg PO Q12H Patient Comments: TAKE 1 CAPSULE BY MOUTH EVERY 12 HOURS FOR 10 DAYS finasteride 5 mg tablet 5 mg PO DAILY Primary Care Provider: Del Fox Referrals: Jared Hankins MD [Med Staff - Active Staff] - 5-7 Days Del Fox DO [Primary Care Provider] - Activity Restrictions/Additional Instructions: Continue to take your antibiotic for the urinary tract infection. Watch your blood sugars closely. Call and follow-up with Dr. Hankins Disposition Disposition: Home, Self Care
[2023-09-04 19:09] VITALS: BP 122/55; PULSE 67; RESP 18; TEMP 37.1; O2SAT 100
[2023-09-04 19:59] VITALS: BP 136/79; PULSE 69; RESP 14; O2SAT 100
== END 2023-09-04 20:00 | disposition home or self-care (01) ==
PROVIDERS: Emergency Provider Emergency Medicine; PCP Student in an Organized Health Care Education/Training Program; Visit Provider Emergency Medicine
DX: N39.0 Urinary tract infection, site not specified (principal); E11.9 Type 2 diabetes mellitus without complications; R33.8 Other retention of urine; N40.1 Benign prostatic hyperplasia with lower urinary tract symptoms; Z79.01 Long term (current) use of anticoagulants; Z87.891 Personal history of nicotine dependence; Z85.51 Personal history of malignant neoplasm of bladder
CPT/HCPCS: 99282

== ENCOUNTER → 2023-09-12 | Outpatient (CLI) | payer MEDICARE, OTHER, SELFPAY ==
--- NOTE | 2023-09-11 09:24 | EKG12_ITS ---
Test Reason : PRE OP Blood Pressure : / mmHG Vent. Rate : 077 BPM Atrial Rate : 077 BPM P-R Int : 224 ms QRS Dur : 092 ms QT Int : 368 ms P-R-T Axes : 006 045 -63 degrees QTc Int : 416 ms Sinus rhythm with 1st degree A-V block T wave abnormality, consider anterolateral ischemia Abnormal ECG Confirmed by Del Villafana ([id number]), editorial intern DESIRAE DENG ([id number]) on 09/11/2023 2:19:07 PM Referred By: Jared Hankins Confirmed By:Del Villafana
[2023-09-11 10:24] LABS: Prothrombin Time (Protime)PT. 13.5 SECONDS (11.7-14.9)
[2023-09-11 10:25] LABS: Partial Thromboplast Time 33.2 Seconds (24.1-36.2)
[2023-09-11 10:43] LABS: AST(SGOT) 16 U/L (15-37); Alanine Aminotransfer ALT/SGPT 27 U/L (16-61); Albumin, Serum 3.1 g/dL (3.2-5.0); Alkaline Phosphatase 136 U/L (45-117); Bilirubin, Direct 0.13 mg/dL (0.00-0.30); Globulin 3.7 g/dL (2.2-4.2); Protein, Total 6.8 g/dL (6.4-8.2)
[2023-09-11 10:46] LABS: Hemoglobin A1c 9.6 % (3.8-5.6)
== END | disposition home or self-care (01) ==
LOC: AC 11:54 → SDC 02-27 08:50
PROVIDERS: Anesthesiology; PCP Student in an Organized Health Care Education/Training Program; Referring Provider Urology; Visit Provider Urology
DX: Z01.818 Encounter for other preprocedural examination (principal); Z79.4 Long term (current) use of insulin; Z53.9 Procedure and treatment not carried out, unspecified reason; Z79.82 Long term (current) use of aspirin; Z79.01 Long term (current) use of anticoagulants; Z79.84 Long term (current) use of oral hypoglycemic drugs; Z79.899 Other long term (current) drug therapy
CPT/HCPCS: 36415; 80076; 83036; 85610; 85730; 93005

== ENCOUNTER 2023-10-05 08:37 | Day surgery (SDC) | payer MEDICARE, OTHER, SELFPAY ==
[2023-10-05] VITALS (12 sets, daily range): BP systolic 104–149; BP diastolic 52–77; PULSE 66–84; RESP 16–18; TEMP 36–36.8; O2SAT 94–100; BMI 28.5
--- NOTE | 2023-10-05 | PROS_PTH ---
PATIENT: MIREYA LIM LOC: [facility] [place] U#:[id number] AGE/SX: 83/M ROOM: RE10/05/[address]: Dr. Jared Hankins MD : [id number] BED: DIS: 10/06/2023 SPEC #: [id number] RECD: 10/05/23 11:46 STATUS: ANDRÉS REPeg #: [id number] FARHEEN: 10/05/23 00:[address]: Jared Hankins DEPT: SURGICAL PATHOLOGY RECD BY: Felix Guevara ENTERED: 10/05/23 11:46 SP TYPE: TURP OTHR DR: Dr. Del Fox, DO Tissues: Prostate, NOS Procedures: Surgery Specimen Level IV HEADER OPERATION: Cysto, transurethral resection prostate PRE-OP DIAGNOSIS: BPH with retention of urine TISSUE SUBMITTED: Prostate tissue MICROSCOPIC DIAGNOSIS Prostate tissue, transurethral resection: Benign prostatic hyperplasia, glandular and stromal type. Moderate chronic inflammation. SJ/mr 10/08/2023 MICROSCOPIC DESCRIPTION Slides are reviewed. GROSS DESCRIPTION Received is one container labeled with the patient's name and designated prostate tissue. The specimen consists of multiple irregular fragments of pink-mendoza, rubbery, soft tissue that in aggregate weigh 4.1 gm and measure in aggregate 3.0 x 2.5 x 1.0 cm. The entire specimen is submitted in five cassettes. JIMBO/ 10/05/23 TC:5 CPT: 46103
[2023-10-05] MEDS: Lactated Ringers 1,000 ML 15 ML IV (09:18)
--- NOTE | 2023-10-05 09:20 | HP.PCM_ITS ---
[facility] - [facility] General Date of Service: 10/05/23 Chief Complaint: BPH with retention of urine HPI Narrative MRIEYA LIM, is a 83 M who presents transurethral resection of prostate history of BPH with obstruction and retention of urine currently as a catheter [facility] Medical History (Updated 10/01/23 @ 08:27 by Yodit Cueva) Arthritis Back pain Bladder cancer BPH (benign prostatic hyperplasia) Cardiology follow-up encounter COPD (chronic obstructive pulmonary disease) Difficulty swallowing DM II (diabetes mellitus, type II), controlled Former smoker History of echocardiogram History of irregular heartbeat History of stress test Indwelling urethral catheter present Injury of head and neck Insulin dependent diabetes mellitus Shortness of breath on exertion Wears dentures Wears glasses Home Medications atorvastatin 10 mg tablet 20 mg PO QHS Check with primary doctor 12/30/14 [History Last Taken 10/04/23] glimepiride 4 mg tablet 4 mg PO DAILY DIABETES 12/30/14 [History Last Taken 10/04/23] metoprolol succinate 100 mg tablet,extended release 24 hr 50 mg PO DAILY Check with primary doctor 12/02/22 [History Last Taken 10/05/23] tamsulosin 0.4 mg capsule 0.8 mg PO DAILY Check with primary doctor 12/02/22 [History Last Taken 10/04/23] aspirin 81 mg capsule 81 mg PO DAILY Cardiac 12/18/22 [History Last Taken 10/01/23] finasteride 5 mg tablet 5 mg PO DAILY BPH 09/04/23 [History Last Taken 10/04/23] apixaban 5 mg tablet (Eliquis) 5 mg PO Q12H BLOOD THINNER 09/10/23 [History Last Taken 10/01/23] ascorbic acid (vitamin C) 500 mg tablet (C-500) 500 mg PO DAILY SUPPLEMENT 09/10/23 [History Last Taken 10/04/23] empagliflozin 10 mg tablet (Jardiance) 10 mg PO DAILY DIABETES 09/10/23 [History Last Taken 10/04/23] insulin glargine 100 unit/mL (3 mL) subcutaneous pen (Lantus Solostar U-100 Insulin) 12 unit subcut DAILY DIABETES 09/10/23 [History Last Taken 10/04/23] semaglutide 0.25 mg or 0.5 mg (2 mg/3 mL) subcutaneous pen injector (Ozempic) 0. 5 mg subcut WE DIABETES 09/10/23 [History Last Taken 09/28/23] Allergy/AdvReac Type Severity Reaction Status Date / Time No Known Allergies Allergy Verified 10/05/23 09:09 Surgical History (Updated 09/10/23 @ 14:25 by Lila Bynum) H/O transurethral resection of bladder tumor (TURBT) History of back surgery History of colonoscopy History of coronary artery stent placement History of surgery Hx of CABG S/P ureteral stent placement Social History household members: spouse housing: house Smoking Status: Former smoker alcohol intake: never substance use type: does not use Vital Signs Vital Signs Vital Signs: 10/05/23 09:10 10/05/23 09:10 Temperature 97.6 F L Temperature Source Temporal Pulse Rate 84 Respiratory Rate 16 Respiratory Pattern Normal Blood Pressure 130/66 H Blood Pressure Mean 87 Blood Pressure Source Monitor Blood Pressure Position Semi-Fowlers Blood Pressure Location Left Arm Pulse Ox 100 Oxygen Delivery Method Room Air Weight Weight: 87.543 kg Body Mass Index (BMI) 28.5
--- NOTE | 2023-10-05 09:24 | DCINST_ITS ---
Discharge Instructions Diet Discharge Diet: No restrictions Activity Discharge Activity: Return to Normal Activity and May Not Drive (while taking narcotic pain medications.) Dressing / Incision Call your doctor if you observe: Fever of 101 or Higher Follow Up Care Please Follow Up With: Jared Hankins MD When: Call [phone] for an appointment Test Results: Test results from this visit will be discussed in further detail at your follow- up appointment, if applicable. Discharge Plan Admission Primary Reason for Your Visit: turp Attending Provider: Jared Hankins Primary Care Provider: Del Fox Discharge Orders/Prescriptions Prescriptions: New ciprofloxacin HCl [Cipro] 500 mg tablet 500 mg PO BID Qty: 10 0RF Continued atorvastatin 10 MG tablet 20 mg PO QHS glimepiride 4 MG tablet 4 mg PO DAILY metoprolol succinate 100 mg tablet extended release 24 hr 50 mg PO DAILY tamsulosin 0.4 mg Capsule 0.8 mg PO DAILY aspirin 81 mg Capsule 81 mg PO DAILY Eliquis 5 mg tablet 5 mg PO Q12H Hold Instructions: PREOP Patient Comments: TAKE 1 TABLET BY MOUTH TWICE A DAY Jardiance 10 mg tablet 10 mg PO DAILY Ozempic 0.25 mg or 0.5 mg (2 mg/3 mL) pen injector 0.5 mg SUBCUT WE Patient Comments: INJECT 0.25 MG SUBCUTANEOUSLY WEEKLY ROTATE INJECTION SITES insulin glargine [Lantus Solostar U-100 Insulin] 100 unit/mL (3 mL) insulin pen 12 unit SUBCUT DAILY Patient Comments: UNJECT 12 UNIT(S) SUBCUTANEOUS EVERY DAY AT BEDTIME ,X90 DAY(S),INSTR:DX E11.21 ascorbic acid (vitamin C) [C-500] 500 mg tablet 500 mg PO DAILY finasteride 5 mg tablet 5 mg PO DAILY Referrals / Follow Up: Jarde Hankins MD [Med Staff - Active Staff] - Del Fox DO [Primary Care Provider] - Disposition Disposition (needs filled in before D/C Order can be placed): Home, Self Care
[2023-10-05 09:39] LABS: Bedside Glucose 273 mg/dL (74-106)
[2023-10-05] MEDS: Cefazolin 2 GM in 0.9% Normal Saline (100mL Bag) 100 ML IV (09:42)
--- NOTE | 2023-10-05 10:15 | PCM.OPRPT ---
Report of Operation Date of Procedure: 10/05/23 Pre-Operative Diagnosis: BPH with retention of urine Post-Operative Diagnosis: Same Surgery/Procedure Performed:: Transurethral section of prostate Description of Surgical Findings:: In the preoperative setting I discussed with the patient how the surgery would be done with expect afterwards. We discussed how a prostate resection is done and we discussed the risk of the surgery including, bleeding, infection, retrograde ejaculation, changes with ejaculation or intercourse,. We discussed the possibility that the resection of the prostate may not alleviate his urinary symptoms. We discussed the small risk of developing scar tissue along the urethral channel and strictures. We also discussed the chance of the prostate could grow back and he may need further surgery or treatment in the future for prostate problems. Patient was taken back to the operating room, timeout procedure was performed, he was identified and marked and placed on the operating room table. He underwent general anesthesia. He was placed in dorsolithotomy position. Penis and testicles were prepped and draped in usual sterile fashion. Went into the bladder using the visual obturator with a resectoscope. Once inside the bladder identified the right and left ureteral orifice. I then identified the prostate and the anatomy of the prostate. I marked out the area of the sphincter and the verumontanum was identified. I then proceeded with the prostate resection first resected the median lobe. And then resected the right lobe of the prostate. Then to resect the left lobe of the prostate. I then resected the apical tissue of the prostate. This was a complete resection of all obstructive tissue to improve voiding and relieve obstruction. I then made sure that there was no injury to the sphincter or the verumontanum was still intact. At the end of the resection all the chips were Ellik out of the bladder. I then identified the left and right ureteral orifice and these were confirmed to be in good position and effluxing and not injured. The resectoscope was removed, a 22 [place] catheter was placed into the bladder on continuous irrigation. And the urine was fairly light pink color and draining normally. He was taken back to the PACU in good condition. CPT 67045 Surgeon: Jared Hankins Type of Anesthesia: General Admit VTE Documentation VTE Present on Admission: No VTE Mechan Device Prophylaxis: SCD's VTE Pharm Prophylaxis ordered?: No
[2023-10-05] MEDS: Ketorolac 15 MG/ML Vial IV (10:39)
[2023-10-05] MEDS: Lactated Ringers 1,000 ML 75 ML IV (10:40)
[2023-10-05 11:01] LABS: Bedside Glucose 282 mg/dL (74-106)
[2023-10-05] MEDS: Insulin Glargine-YFGN 100 UNIT/ML Pen 12 UNIT SC (13:20)
[2023-10-05] MEDS: Finasteride 5 MG Tablet PO (13:21)
[2023-10-05] MEDS: Empagliflozin 10 MG Tablet PO (13:21)
[2023-10-05] MEDS: Tamsulosin HCl 0.4 MG Capsule 0.8 MG PO (13:21)
[2023-10-05 13:35] LABS: Bedside Glucose 291 mg/dL (74-106)
[2023-10-05] MEDS: Cefazolin 1 GM/50 ML BAG IV (17:10)
[2023-10-05] MEDS: Atorvastatin Calcium 20 MG Tablet PO (20:59)
[2023-10-05] MEDS: Docusate Sodium 100 MG Capsule 200 MG PO (20:59)
[2023-10-05 21:30] LABS: Bedside Glucose > 500 mg/dL (74-106)
[2023-10-05 21:58] LABS: Glucose 679 mg/dL (74-106)
[2023-10-05] MEDS: Insulin Lispro 100 UNIT/ML INSULN.PEN SC (22:59)
[2023-10-06 02:38] VITALS: BP 105/67; PULSE 67; RESP 18; TEMP 36.8; O2SAT 96
[2023-10-06] MEDS: Cefazolin 1 GM/50 ML BAG IV (02:38)
[2023-10-06 03:04] LABS: Bedside Glucose 441 mg/dL (74-106)
[2023-10-06] MEDS: Insulin Lispro 100 UNIT/ML INSULN.PEN SC ×2 (06:22→11:34)
[2023-10-06 06:26] LABS: Hematocrit 31.7 % (40-54); Hemoglobin 10.7 g/dL (13.0-16.5); Mean Corp Hgb Conc 33.8 g/dL (32-36); Mean Corpuscular Hgb 30.1 pg (27.0-32.0); Mean Corpuscular Volume 89.3 fL (80-94); Mean Platelet Vol. 9.5 fl (6.2-12.0); Platelet Count 187 K/mm3 (150-450); RBC Distribution Width CV 12.3 % (11.6-14.6); RBC Distribution Width SD 39.8 fl (35.1-43.9); Red Blood Count 3.55 M/mm3 (4.6-6.2); White Blood Count 7.4 K/mm3 (4.4-11.0)
[2023-10-06 06:46] LABS: Bedside Glucose 379 mg/dL (74-106)
[2023-10-06 06:56] LABS: Anion Gap 7 (5-15); BUN 43 mg/dL (7-18); BUN/Creat Ratio 17.3 RATIO (10-20); Calcium,Total 8.4 mg/dL (8.5-10.1); Chloride 102 mmol/L (98-107); Creatinine, Serum 2.48 mg/dL (0.70-1.30); EST Glomerular Filtration Rate 26 mL/min (>60); Est Glom Filt Rate - Afr Amer 32 mL/min (>60); Estimated Creatinine Clearance 23.85 ml/min; Glucose 405 mg/dL (74-106); Potassium 3.8 mmol/L (3.5-5.1); Sodium Level 134 mmol/L (136-145)
[2023-10-06 07:22] VITALS: O2SAT 94
[2023-10-06] MEDS: Glimepiride 4 MG Tablet PO (08:09)
[2023-10-06] MEDS: Tamsulosin HCl 0.4 MG Capsule 0.8 MG PO (08:09)
[2023-10-06 08:54] VITALS: BP 129/74; PULSE 68; RESP 16; TEMP 36.6; O2SAT 97
[2023-10-06] MEDS: Insulin Glargine-YFGN 100 UNIT/ML Pen 12 UNIT SC (09:49)
[2023-10-06] MEDS: Empagliflozin 10 MG Tablet PO (09:49)
[2023-10-06] MEDS: Docusate Sodium 100 MG Capsule 200 MG PO (09:49)
[2023-10-06 09:50] VITALS: BP 129/74; PULSE 68
[2023-10-06] MEDS: Metoprolol(XL)Succ 50 MG Tablet PO (09:50)
[2023-10-06] MEDS: Finasteride 5 MG Tablet PO (09:50)
[2023-10-06 11:53] LABS: Bedside Glucose 379 mg/dL (74-106)
[2023-10-06 13:11] VITALS: BP 101/56; PULSE 69; RESP 16; TEMP 36.9; O2SAT 99
== END 2023-10-06 13:42 | disposition home or self-care (01) ==
LOC: SDC 08:40 → AC 08:40 → MS3 12:44
PROVIDERS: PCP Student in an Organized Health Care Education/Training Program; Referring Provider Student in an Organized Health Care Education/Training Program; Visit Provider Urology
PROC: (CPT 52601; principal; 2023-10-05 10:45)
DX: N40.1 Benign prostatic hyperplasia with lower urinary tract symptoms (principal); J44.9 Chronic obstructive pulmonary disease, unspecified; E11.9 Type 2 diabetes mellitus without complications; Z79.4 Long term (current) use of insulin; Z87.891 Personal history of nicotine dependence; R33.8 Other retention of urine; Z79.84 Long term (current) use of oral hypoglycemic drugs; Z79.82 Long term (current) use of aspirin; Z79.01 Long term (current) use of anticoagulants; Z79.85 Long-term (current) use of injectable non-insulin antidiabetic drugs; N13.8 Other obstructive and reflux uropathy
CPT/HCPCS: 52601; 00914; 36415; 80048; 82947; 82962; 85027; 88305; J7120; J2405

== ENCOUNTER 2023-10-26 01:12 | Emergency (ER) | payer MEDICARE, OTHER, SELFPAY ==
[2023-10-26 01:13] VITALS: BP 156/89; PULSE 58; RESP 16; TEMP 36.6; O2SAT 95; BMI 26.6
--- NOTE | 2023-10-26 01:30 | EDS_ITS ---
HPI History of Present Illness Chief Complaint: Complaint Informant: patient and family Narrative Narrative: Patient is an 83-year-old male with past medical history of type 2 diabetes COPD coronary artery disease currently on Eliquis. He underwent a TURP procedure roughly 3 weeks ago. He states that he had a catheter for the first day and it was removed once he left the hospital and has been doing well but urinating frequently. He states that he was advised to stop his Eliquis for the last few weeks but was informed he could go back on it. Therefore he states he started it for 5 days ago. He states this evening he had increased lower abdominal/gen ital pain and noticed bright red blood per penis. Secondary to this he presents to the hospital for evaluation. Patient denies any dysuria prior to the onset of the hematuria and he also denies any trauma other than the TURP procedure roughly 3 weeks ago [facility] Medical History Arthritis Back pain Bladder cancer BPH (benign prostatic hyperplasia) Cardiology follow-up encounter COPD (chronic obstructive pulmonary disease) Difficulty swallowing DM II (diabetes mellitus, type II), controlled Former smoker History of echocardiogram History of irregular heartbeat History of stress test Indwelling urethral catheter present Injury of head and neck Insulin dependent diabetes mellitus Shortness of breath on exertion Wears dentures Wears glasses Home Medications atorvastatin 10 mg tablet 20 mg PO QHS Check with primary doctor 12/30/14 [History Last Taken 10/04/23] glimepiride 4 mg tablet 4 mg PO DAILY DIABETES 12/30/14 [History Last Taken 10/04/23] metoprolol succinate 100 mg tablet,extended release 24 hr 50 mg PO DAILY Check with primary doctor 12/02/22 [History Last Taken 10/05/23] aspirin 81 mg capsule 81 mg PO DAILY Cardiac 12/18/22 [History Last Taken 10/01/23] apixaban 5 mg tablet (Eliquis) 5 mg PO Q12H BLOOD THINNER 09/10/23 [History Last Taken 10/01/23] ascorbic acid (vitamin C) 500 mg tablet (C-500) 500 mg PO DAILY SUPPLEMENT 09/10/23 [History Last Taken 10/04/23] empagliflozin 10 mg tablet (Jardiance) 10 mg PO DAILY DIABETES 09/10/23 [History Last Taken 10/04/23] insulin glargine 100 unit/mL (3 mL) subcutaneous pen (Lantus Solostar U-100 Insulin) 12 unit subcut DAILY DIABETES 09/10/23 [History Last Taken 10/04/23] semaglutide 0.25 mg or 0.5 mg (2 mg/3 mL) subcutaneous pen injector (Ozempic) 1 mg subcut WE DIABETES 09/10/23 [History Last Taken 09/28/23] Allergy/AdvReac Type Severity Reaction Status Date / Time No Known Allergies Allergy Verified 10/26/23 01:13 Surgical History H/O transurethral resection of bladder tumor (TURBT) History of back surgery History of colonoscopy History of coronary artery stent placement History of surgery Hx of CABG S/P ureteral stent placement Social History household members: spouse housing: house Smoking Status: Former smoker alcohol intake: never substance use type: does not use ROS ROS ED Constitutional Constitutional ED: Denies chills or fever(s) ENT ENT ED: Denies sore throat Cardiovascular Cardiovascular: Denies chest pain, palpitations or racing heartbeat Respiratory/Chest Respiratory/Chest: Denies cough or dyspnea Gastrointestinal Gastrointestinal: Reports abdominal pain; Denies diarrhea, nausea or vomiting Genitourinary Genitourinary ED: Reports hematuria and urinary frequency; Denies dysuria Musculoskeletal Musculoskeletal: Denies back pain or myalgias Integumentary Denies rash Neurologic Neurologic: Denies headache(s) Hematologic/Lymphatic Hematologic/Lymphatic: Reports easy bleeding and easy bruising EXAM Physical Exam Const Vital Signs: 10/26/23 01:13 10/26/23 03:28 10/26/23 05:00 Temperature 98 F Temperature Source Oral Pulse Rate 58 L 88 88 Respiratory Rate 16 16 19 H Blood Pressure 156/89 H 142/68 H 137/67 H Blood Pressure Mean 111 92 90 Pulse Ox 95 98 98 Oxygen Delivery Method Room Air Room Air 10/26/23 07:00 Temperature Temperature Source Pulse Rate 89 Respiratory Rate 14 Blood Pressure 138/70 H Blood Pressure Mean 92 Pulse Ox 96 Oxygen Delivery Method Room Air Positive well nourished and well developed General Appearance ED: well developed; Negative for pallor HEENT HEENT Narrative: Normocephalic atraumatic Eyes PERRL and EOMs intact bilaterally General Eye ED: Negative for pale conjunctiva or scleral icterus Neck supple Resp normal respiratory effort and clear to auscultation bilaterally Cardio regular rate and regular rhythm Rate: other Other Details: Heart is regular rate and rhythm Radial and carotid pulses are equal and symmetric GI normal to inspection, nondistended, normoactive bowel sounds, non-tender, non- distended and no masses GI Narrative: Abdomen is soft nontender nondistended with normal active bowel sounds. No voluntary guarding or rigidity or pulsatile mass No organomegaly noted Auscultation: normoactive bowel sounds Palpation: soft Narrative: Normal circumcised male There is dark red blood from the urethral meatus No testicular swelling or masses No surrounding soft tissue changes to suggest Ivan's gangrene Back/Spine no CVA tenderness Extremity normal to inspection Neuro oriented x3, CN's II-XII intact bilaterally and no sensory deficits noted Sensorium / Orientation: alert Motor Exam: strength 5/5 throughout Psych mental status grossly normal Skin no rashes or lesions noted and no wounds General Skin Exam: Negative for jaundice or pallor MDM MDM MDM Narrative Medical decision making narrative: Patient arrived to the ER hypertensive otherwise with stable vitals. His exam showed dark red blood from his urethra meatus consistent with spontaneous bleed most likely from his Eliquis use and recent TURP procedure. A Pyle catheter was placed and continuous irrigation was added. With continuous bladder irrigation the urine return to a light pink tinge color but once this was stopped the opaque dark blood-filled once again indicating active bleed. Also on top of this patient now has acute on chronic kidney injury as his creatinine is elevated from 2.48-4.21 since October 05. The patient's white count is slightly elevated and his urine shows +3 bacteria but no white cells or nitrites and therefore this is questionable UTI versus colonization/normal mariela so the urine to be sent for culture and a gram of Rocephin will be given by IV route to cover for potential infection. The patient does not have acute blood loss anemia as hemoglobin is stable at 12.5 and therefore there is no need for blood transfusion or reversal of the Eliquis. The patient's urologist is out of town and I discussed with the medicine physician about keeping him at our facility despite the lack of urology coverage. Medicine does not agree to accept the patient at this time as without urology backup if there is need for procedure cannot be done at our facility. Therefore the patient request transfer to outside facility and [facility] was contacted. The patient has remained hemodynamically stable while awaiting potential transfer History & Record Review Discussion w/independent historian: Patient and Family Lab Data Attestation: I reviewed the patient's lab results. Labs: Laboratory Results - last 24 hr 10/26/23 10/26/23 01:38 02:04 WBC 12.9 H RBC 4.37 L Hgb 12.5 L Hct 37.9 L MCV 86.7 MCH 28.6 MCHC 33.0 RDW Std Deviation 40.4 RDW Coeff of Danielle 12.9 Plt Count 383 MPV 9.2 Immature Gran % (Auto) 0.400 Neut % (Auto) 78.5 H Lymph % (Auto) 14.5 L Cache % (Auto) 5.6 Eos % (Auto) 0.5 Baso % (Auto) 0.5 Absolute Neuts (auto) 10.2 H Absolute Lymphs (auto) 1.88 Nucleated RBC % 0 PT 18.8 H INR 1.6 APTT 34.4 Sodium 133 L Potassium 4.5 Chloride 104 Carbon Dioxide 16.0 L Anion Gap 13 BUN 76 H Creatinine 4.21 H Estim Creat Clear Calc 12.83 Est GFR (MDRD) Af Amer 17 L Est GFR (MDRD) Non-Af 14 L BUN/Creatinine Ratio 18.1 Glucose 416 H Calcium 9.7 Urine Color Red Urine Clarity Turbid Urine pH 7.0 Ur Specific [place] 1.010 Urine Protein 500 H Urine Glucose (UA) 250 H Urine Ketones 15 H Urine Occult Blood 250 H Urine Nitrite Negative Urine Bilirubin Negative Urine Urobilinogen Normal Ur Leukocyte Esterase Negative Urine RBC > 100 SEEN Urine WBC 0 SEEN Ur Squamous Epith Cells 0 SEEN Urine Bacteria 3+ Urine Mucus 0 SEEN Discharge Plan Triage Chief Complaint: Complaint ED Provider: Javon Aguilar Dx/Rx/DC Orders Clinical Impression: Hematuria, 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 Patient Comments: TAKE 1 TABLET BY MOUTH TWICE A DAY Jardiance 10 mg tablet 10 mg PO DAILY Ozempic 0.25 mg or 0.5 mg (2 mg/3 mL) pen injector 1 mg SUBCUT WE Patient Comments: INJECT 0.25 MG SUBCUTANEOUSLY WEEKLY ROTATE INJECTION SITES insulin glargine [Lantus Solostar U-100 Insulin] 100 unit/mL (3 mL) insulin pen 12 unit SUBCUT DAILY Patient Comments: UNJECT 12 UNIT(S) SUBCUTANEOUS EVERY DAY AT BEDTIME ,X90 DAY(S),INSTR:DX E11.21 ascorbic acid (vitamin C) [C-500] 500 mg tablet 500 mg PO DAILY Primary Care Provider: Del Fox Referrals: Del Fox DO [Primary Care Provider] - Disposition Disposition: Acute Care Hospital Discharge Location: [facility] [place]
[2023-10-26] MEDS: Lidocaine Jelly 2% 20 ML Syringe (URO-JET) 1 APPLIC TOPICAL (01:43)
[2023-10-26] MEDS: Ondansetron 4 MG/2 ML Vial IV (01:43)
[2023-10-26] MEDS: Morphine 4 MG/ML Syringe IV (01:43)
[2023-10-26 01:44] LABS: Absolute Lymphocyte Count 1.88 X10^3/uL (0.83-4.51); Absolute Neutrophil Count 10.2 X10^3/uL (2.0-7.7); Basophil# 0.07 X10^3/uL; Basophil% 0.5 % (0-1); Eosinophil# 0.06 X10^3/uL; Eosinophils% 0.5 % (0-5); Hematocrit 37.9 % (40-54); Hemoglobin 12.5 g/dL (13.0-16.5); Lymphocyte # 1.88 X10^3/ul (0.83-4.51); Lymphocyte % 14.5 % (19-41); Mean Corpuscular Hgb 28.6 pg (27.0-32.0); Mean Corpuscular Volume 86.7 fL (80-94); Mean Platelet Vol. 9.2 fl (6.2-12.0); Monocyte# 0.72 X10^3/uL; Monocyte% 5.6 % (0-10); NRBC Flagged by Analyzer 0 % (0-5); Neutrophil # 10.15 X10^3/uL (2.7-7.7); Neutrophil % 78.5 % (47-70); Platelet Count 383 K/mm3 (150-450); RBC Distribution Width CV 12.9 % (11.6-14.6); RBC Distribution Width SD 40.4 fl (35.1-43.9); Red Blood Count 4.37 M/mm3 (4.6-6.2); White Blood Count 12.9 K/mm3 (4.4-11.0)
[2023-10-26 01:53] LABS: International Normalized Ratio 1.6; Prothrombin Time (Protime)PT. 18.8 SECONDS (11.7-14.9)
[2023-10-26 01:54] LABS: Partial Thromboplast Time 34.4 Seconds (24.1-36.2)
[2023-10-26 01:58] LABS: Anion Gap 13 (5-15); BUN 76 mg/dL (7-18); BUN/Creat Ratio 18.1 RATIO (10-20); Calcium,Total 9.7 mg/dL (8.5-10.1); Chloride 104 mmol/L (98-107); Creatinine, Serum 4.21 mg/dL (0.70-1.30); EST Glomerular Filtration Rate 14 mL/min (>60); Est Glom Filt Rate - Afr Amer 17 mL/min (>60); Estimated Creatinine Clearance 12.83 ml/min; Glucose 416 mg/dL (74-106); Potassium 4.5 mmol/L (3.5-5.1); Sodium Level 133 mmol/L (136-145)
--- NOTE | 2023-10-26 02:13 | ED.RN ---
INSTRUCTED BY Sim GARCIA, IRRIGATE BLADDER W/ 3000ML (X3); SEE IF HEMATURIA RETURNS
[2023-10-26 02:15] LABS: Mucous, Urine 0 SEEN /hpf (<or=2+); Squamous Epithelial Cells - UA 0 SEEN /hpf (0-5); White Blood Cells 0 SEEN /hpf (0-5)
[2023-10-26 02:17] LABS: Color, Urine Red (Yellow); Glucose, Dipstick 250 mg/dl (Normal); Ketone-Dipstick 15 mg/dl (Negative); Leukocyte Esterase-Dipstick Negative /ul (Negative); Nitrite-Dipstick Negative (Negative); Occult Blood-Urine 250 /ul (Negative); Protein-Dipstick 500 mg/dl (Negative); Urine Bilirubin Dipstick Negative (Negative); Urine Clarity Turbid (Clear); Urine Urobilinogen Normal (Normal)
[2023-10-26] MEDS: 0.9% Normal Saline (1000mL) 1,000 ML 999 ML IV (02:17)
[2023-10-26 02:33] LABS: Bacteria 3+ /hpf (None Seen); Red Blood Cells-Urine > 100 SEEN /hpf (0-5)
[2023-10-26] MEDS: Ceftriaxone 1 GM/50 ML BAG IV (03:19)
[2023-10-26 03:28] VITALS: BP 142/68; PULSE 88; RESP 16; O2SAT 98
[2023-10-26 05:00] VITALS: BP 137/67; PULSE 88; RESP 19; O2SAT 98
[2023-10-26 07:00] VITALS: BP 138/70; PULSE 89; RESP 14; O2SAT 96
[2023-10-26 09:00] VITALS: BP 143/83; PULSE 93; RESP 18; O2SAT 94
[2023-10-26 09:57] VITALS: BP 143/83; PULSE 93; RESP 18; TEMP 36.8; O2SAT 94
== END 2023-10-26 10:08 | disposition short-term general hospital (02) ==
PROVIDERS: Emergency Provider Emergency Medicine; PCP Student in an Organized Health Care Education/Training Program; Visit Provider Emergency Medicine
DX: R31.9 Hematuria, unspecified (principal); J44.9 Chronic obstructive pulmonary disease, unspecified; Z79.4 Long term (current) use of insulin; E11.22 Type 2 diabetes mellitus with diabetic chronic kidney disease; N17.9 Acute kidney failure, unspecified; N18.9 Chronic kidney disease, unspecified; R35.0 Frequency of micturition; I25.10 Atherosclerotic heart disease of native coronary artery without angina pectoris; Z79.82 Long term (current) use of aspirin; Z79.84 Long term (current) use of oral hypoglycemic drugs; Z79.01 Long term (current) use of anticoagulants; Z79.85 Long-term (current) use of injectable non-insulin antidiabetic drugs; Z90.79 Acquired absence of other genital organ(s); Z87.891 Personal history of nicotine dependence; Z95.1 Presence of aortocoronary bypass graft; Z95.5 Presence of coronary angioplasty implant and graft
CPT/HCPCS: 51702; 80048; 81001; 85025; 85610; 85730; 87086; 87088; 96361; 96365; 96375; 99285; J7030; A4216; J2405